=== PATIENT | male | born 1980 | race Caucasian/White ===

== ENCOUNTER 2021-03-15 16:06 | Emergency (ER) | payer OTHER ==
[~2021-03-15] VITALS: Ht 193 cm; Wt 90.7 kg
--- OUTSIDE RECORDS SUMMARY | 2021-03-15 16:20 | XMS REPORT | Clinical Summary ---
Author Author [facility] Organization [facility] Address Unknown Phone Unavailable Care Team Providers Care Kennel Staff Member Name Role Phone Peggy Taylor MD PCP Allergies No known active allergies Medications End Date Status Medication Sig Dispensed Refills Start Date Active abacavir/dolutegravir/hernandez Take 600 mg 0 ivudi (TRIUMEQ ORAL) by mouth every morning. Active oxyCODONE-acetaminophen 0 (PERCOCET) 5-325 mg per 1 tablet Active Problems Not on file Social History Date Tobacco Use Types Packs/Day Years Used Current Every Day Smoker Cigarettes 0.25 10 Smokeless Tobacco: Never Used Comments: half pack a week Comments Alcohol Use Standard Drinks/Week RARELY Yes 0 (1 standard drink = 0.6 o z pure alcohol) Alcohol Habits Answer Date Recorded How often do you have a drink containing alcohol? No t asked How many drinks containing alcohol do you have on No t asked a typical day when you are drinking? How often do you have six or more drinks on one Not asked occasion? Comment: RARELY 06/03/2020 Sex Assigned at Date Recorded Not on file Last Filed Vital Signs Reading Time Taken Comments Vital Sign 127/81 06/08/2020 1:05 AM CDT Blood Pressure 68 06/08/2020 1:05 AM CDT Pulse 36.6 C (97.8 F) 06/08/2020 1:05 AM CDT Temperature 16 06/08/2020 1:05 AM CDT Respiratory Rate 99% 06/08/2020 1:05 AM CDT Oxygen Saturation - - Inhaled Oxygen Concentration 89.8 kg (198 lb) 06/07/2020 12:13 PM CDT Weight 193 cm (6' 4") 06/07/2020 12:13 PM CDT Height 24.1 06/07/2020 12:13 PM CDT Body Mass Index Plan of Treatment Health Maintenance Due Date Last Done Comments Spirometry # 1980 Td/Tdap# 1980 Tobacco Cessation 1980 Counseling # COVID-19 Vaccine (1) 1985 Pneumococcal Vaccine: 1986 Pediatrics (0 to 5 Years) and At-Risk Patients (6 to 64 Years) (1 of 2 - PPSV23) Influenza Vaccine (#1) 2020 02/08/2020, 02/17/2017, 02/28/2016, Additional history exists Implants Device Identifier Shelf Expiration Date Model / Serial / L ot Implanted Type Area Manufactur er Posts,Mouth 01/18/2024 140.947 / / [id number] Implant Ne[employer]ent [place] N/A: Mouth 3.5x16mm Implanted: Qty: 2 on 06/07/2020 by Manolo Langston MD at [facility] 02/19/2024 140.947 / / [id number] Implant Ne[employer]ent [place] [place] N/A: Mouth 3.5x16mm Implanted: Qty: 1 on 06/07/2020 by Manolo Langston MD at [facility] 02/16/2024 140.971 / / [id number] Implant [address] [place] [place] N/A: Mouth 5.0x10mm Implanted: Qty: 1 on 06/07/2020 by Manolo Langston MD at [facility] 02/19/2024 140.968 / / [id number] Im[address] [place] [place] N/A: Mouth 4.3x16mm Implanted: Qty: 1 on 06/07/2020 by Manolo Langston MD at [facility] 02/12/2024 140.967 / / [id number] Implant [address] [place] [place] N/A: Mouth 4.3x13mm Implanted: Qty: 1 on 06/07/2020 by Manolo Langston MD at [facility] 01/23/2024 140.973 / / [id number] [address] [place] [place] N/A: Mouth 5.0x13mm Implanted: Qty: 1 on 06/07/2020 by Manolo Langston MD at [facility] 05/29/2022 [id number] / / [id number] Implant [place] Cancell[place] N/A: Mouth JOSELUIS 5gram/1.2cc SURGICAL Implanted: Qty: 2 on 06/07/2020 by Manolo Langston MD at [facility] 08/31/2023 140.971 / / [id number] Im[address] [place] [place] N/A: Mouth 5.0x10mm Implanted: Qty: 1 on 06/07/2020 by Manolo Langston MD at [facility] 11/09/2023 140.968 / / [id number] Im[address] [place] [place] N/A: Mouth 4.3x16mm Implanted: Qty: 1 on 06/07/2020 by Manolo Langston MD at [facility] 03/31/2024 140.952 / / [id number] Implant Neodent [place] N/A: Mouth 4.3x16mm Implanted: Qty: 1 on 06/07/2020 by Manolo Langston MD at [facility] Results Not on filefrom Last 3 Months Insurance Type Payer Benefit Subscriber ID Effective Phone Address Plan / Dates Group COMMERCIAL-NONCONTRACTED AMBETTER [id number] 2020-P [phone] [address] [place] [address] [place] [id number] 2020-P [phone] [address] MED[address] [place] [address] Advance Directives For more information, please contact: [phone] Patient Ginning Operator Explanation Type Date Recorded Health Care Directive Date Inactivated Comments Code Status Date Activated 06/08/2020 4:12 AM Full Code 06/07/2020 11:59 AM 06/07/2020 11:59 AM Full Code 06/07/2020 11:59 AM Care Teams Start Date End Date Kennel Staff Member Relationship Specialty 02/19/15 Peggy Taylor MD PCP - General Family Medicine
[2021-03-15 16:42] VITALS: BP 147/89
[2021-03-15] MEDS ORDERED: SULF1TAB38 PO (17:04)
[2021-03-15] MEDS ORDERED: MUPI22OI2 TP (17:04)
--- NOTE | 2021-03-15 17:07 | ED Integumentary General ---
General Chief Complaint: Skin/Wound Problems Stated Complaint: INFECTION IN LEFT LEG Nursing Triage Note: PT AMB TO FT 2 W REPORTS OF LEFT UPPER SANTANA AREA OF CONCERN. PT C/O PAIN, THROBBING, REDNESS, AND SWELLING. PT NOTICED IT 4-5 DAYS AGO. ROUND REDDENED AREA NOTED DURING TRIAGE. A&OX4. (HAWA GALARZA) History of Present Illness Date Seen by Provider: Mar 15, 2021 Time Seen by Provider: 16:42 Initial Comments 40-year-old male presents for a lesion to his left lower leg, anterior, proximal santana. He has noticed it for 4 to 5 days, he did have some purulent drainage from it initially. No drainage over the last day. He has been cleaning it with peroxide and he did apply hydrocortisone and Neosporin to it with no improvement. No history of MRSA. He did not have a spider bite that he knows of or other injury to the area. Timing/Duration: week Severity: mild Possible Cause: no cause identified Associated Symptoms: denies symptoms (HAWA GALARZA) Allergies and Home Medications Patient Home Medication List Home Medication List Reviewed: Yes (HAWA GALARZA) Mupirocin (Mupirocin) 22 Gm Oint...g., 1 EACH TP TID Prescribed by: HAWA GALARZA on 03/15/211703 Sulfamethoxazole/Trimethoprim (Bactrim Ds Tablet) 1 Each Tablet, 1 EACH PO BID Prescribed by: HAWA GALARZA on 03/15/211703 Review of Systems Review of Systems Constitutional: no symptoms reported, see HPI Skin: see HPI, change in color (erythema); No rash (HAWA GALARZA) All Other Systems Reviewed Negative Unless Noted: Yes (HAWA GALARZA) Past Dekbzew-Qucrhz-Aobiqj Hx Patient Social History Tobacco Use?: Yes Tobacco type used: Cigarettes Smoking Status: Current Everyday Smoker Use of E-Cig and/or Vaping dev: No Substance use?: Yes Substance type: Methamphetamine, Marijuana Alcohol Use?: No (HAWA GALARZA) Immunizations Up To Date Influenza Vaccine Up-to-Date: Yes; Up-to-Date First/Initial COVID19 Vaccinat: 2020 Second COVID19 Vaccination Van: 2020 COVID19 Vaccine Health Aide: MUSA (HAWA GALARZA) Past Medical History Surgery/Hospitalization HX: HIV HIV/AIDS: Yes (HAWA GALARZA) Family Medical History Reviewed and Corrections made (HAWA GALARZA) Physical Exam Vital Signs Vital Signs - First Documented 03/15/21 16:42 Temp 36.0 Pulse 94 Resp 20 B/P (MAP) 147/89 (108) Pulse Ox 99 O2 Delivery Room Air (FAIZAN WITT MD) Vital Signs Capillary Refill : Less Than 3 Seconds (HAWA GALARZA) General Appearance: WD/WN, no apparent distress Cardiovascular: normal peripheral pulses, regular rate, rhythm Respiratory: chest non-tender, lungs clear, normal breath sounds Skin: normal color, warm/dry Skin Problem Location: lower extremities (left lower leg) Skin Problem Character: erythema, tenderness, warm, other (trace induration, no fluctuance or abscess) Lymphatic: no adenopathy (HAWA GALARZA) Progress/Results/Core Measures Results/Orders Vital Signs/I&O 03/15/21 16:42 Temp 36.0 Pulse 94 Resp 20 B/P (MAP) 147/89 (108) Pulse Ox 99 O2 Delivery Room Air (FAIZAN WITT MD) Blood Pressure Mean: 108 Departure Impression Primary Impression: Skin lesion Disposition: 01 HOME, SELF-CARE Condition: Improved Departure-Patient Inst. Decision time for Depature: 17:00 (HAWA GALARZA) Referrals: NO,LOCAL PHYSICIAN (PCP/Family) Primary Care Physician Patient Instructions: Wound Care (DC), MRSA (DC) Add. Discharge Instructions: Continue to clean the wound with peroxide 3 times daily, apply antibiotic ointment as prescribed. Take antibiotics as prescribed. Follow-up with your primary care provider if symptoms are not improving or worsen. Return to the emergency department for new, urgent healthcare problems. All discharge instructions reviewed with patient and/or family. Voiced understanding. Scripts Mupirocin (Mupirocin) 22 Gm Oint...g. 1 EACH TP TID for 7 Days, #1 TUBE 0 Refills Prov: HAWA GALARZA 03/15/21 Sulfamethoxazole/Trimethoprim (Bactrim Ds Tablet) 1 Each Tablet 1 EACH PO BID, #14 TAB 0 Refills Prov: HAWA GALARZA 03/15/21 ATTENDING PHYSICIAN NOTE: I was physically present as attending physician in the emergency department during the care of this patient, but I was not directly involved in the decision making or delivery of care for this patient. (FAIZAN WITT MD) HAWA GALARZA Mar 15, 2021 17:07 FAIZAN WITT MD Mar 17, 2021 08:27
== END 2021-03-15 17:12 | disposition home or self-care (01) ==
LOC: ER 16:16
DX: L98.9 Disorder of the skin and subcutaneous tissue, unspecified (principal); F17.210 Nicotine dependence, cigarettes, uncomplicated
CPT/HCPCS: 99281

== ENCOUNTER 2022-07-03 11:01 | Inpatient (IN) | payer OTHER ==
[~2022-07-03] VITALS: Ht 190.5 cm; Wt 92.6 kg
[~2022-07-03 11:01] MED LIST: MUPI22OI2 TP; SULF1TAB38 PO
--- NOTE | 2022-07-03 12:36 | PM&R Post Admission Assessment ---
PM&R Date of Visit: July 03, 2022 Time of Visit: 18:00 History of Present Illness CC: Debility following CVA CC: This is a 42yoWM who presents from [place] after this hospital stay: 06/08/22 found unresponsive by friend after he didn't show up to work, last well known time x2 days ago. EMS called, pt found to be hypothermic. Meth, marijuana and fentanyl found on the scene. UDS positive for meth, amphetamines, marijuana and buprenorphrine. Pt intubated due to acute hypercapnic respiratory failure. Pt extubated 06/09/22. 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 TTE EF 60%. Patient is currently reporting left leg pain but had a good therapy assessment when he arrived. Past Dkbtanh-Qrpwwu-Ugvlwy Hx Past Med/Social Hx: Reviewed Nursing Past Med/Soc Hx, Reviewed and Corrections made Patient Social History Marrital Status: single Employed/Student: employed Alcohol Use: Regular Use Smoking Status: Former Smoker Past Medical History Neurological: Stroke (05/2022) HIV/AIDS: Yes PM&R Allergy/Meds/Data Review Allergies Coded Allergies: No Allergy Information Available (Unverified , 07/03/22) Home Medications Scheduled Apixaban (Eliquis), 5 MG PO BID Aspirin (Aspirin), 81 MG PO DAILY, (Reported) Fluoxetine HCl (Prozac), 10 MG PO DAILY Olanzapine (Zyprexa), 5 MG PO DAILY, (Reported) Pantoprazole Sodium (Protonix), 40 MG PO DAILY Temazepam (Restoril), 30 MG PO HS Scheduled PRN Lidocaine (Lidocaine 5% Patch), 1 EACH TP Q12H PRN for Neuropathic pain Discontinued Medications Mupirocin (Mupirocin), 1 EACH TP TID Discontinued Reason: No Longer Taking Sulfamethoxazole/Trimethoprim (Bactrim Ds Tablet), 1 EACH PO BID Discontinued Reason: No Longer Taking Current Medications Current Medications Reviewed Review of Systems Constitutional: see HPI, dizziness, malaise, weakness EENTM: no symptoms reported Respiratory: no symptoms reported Cardiovascular: no symptoms reported Gastrointestinal: no symptoms reported Genitourinary: no symptoms reported Musculoskeletal: back pain, joint pain Skin: no symptoms reported Psychiatric/Neurological: Anxiety, Depressed All Other Systems Reviewed Negative Unless Noted: Yes Physical Exam Physical Exam Vital Signs Capillary Refill : Height, Weight, BMI Height: '" Weight: lbs. oz. kg; 24.00 BMI Method: General Appearance: No Apparent Distress, WD/WN, Thin Eyes: Bilateral Eye Normal Inspection, Bilateral Eye PERRL HEENT: PERRL/EOMI, Normal ENT Inspection, Pharynx Normal Neck: Full Range of Motion, Normal Inspection, Non Tender, Supple, Carotid Bruit Respiratory: Chest Non Tender, Lungs Clear, Normal Breath Sounds, No Accessory Muscle Use, No Respiratory Distress Cardiovascular: Regular Rate, Rhythm, No Edema, No Gallop, No JVD, No Murmur, Normal Peripheral Pulses Gastrointestinal: Normal Bowel Sounds, No Organomegaly, No Pulsatile Mass, Non Tender, Soft Back: Normal Inspection, No CVA Tenderness, No Vertebral Tenderness Extremity: Normal Capillary Refill, Normal Inspection, Normal Range of Motion, Non Tender, No Calf Tenderness, No Pedal Edema Neurologic/Psychiatric: Alert, Oriented x3, interactive art director II-XII Norm as Tested, Abnormal Gait, Aphasia, Depressed Affect, Motor Weakness (left sided leg 2/5 left arm 3/5) Skin: Normal Color, Warm/Dry Lymphatic: No Adenopathy PM&R Medical Assessment & Plan REHAB/MEDICAL ASSESSMENT AND PLAN: REHAB IMPAIRMENT GROUP: CVA ETIOLOGIC DIAGNOSIS: CVA The comorbidities that impact the patients function and/or functional outcome by: cardiac source of CVA, left sided weakness, depression REHAB PLAN: The patient is being admitted to our comprehensive inpatient rehabilitation facility and can tolerate the intensity of service consisting of at least: 180 minutes of therapy a day, 5 out of 7 days a week Rehab treatment will consist of: PT OT will focus on regaining function with use of AD with aggressive therapy in order to regain ambulation and ADL's in order to live independently The patient/family has a good understanding of our discharge process and will benefit from an interdisciplinary inpatient rehabilitation program. The patient has potential to make improvement and is in need of at least two of the following multidisciplinary therapies including but not limited to physical, occupational, speech, and prosthetics and orthotics. Additionally the patient will need services from respiratory, nutritional services, wound care, psychology, etc. (Customize this to each patient). Given the patients complex condition and risk of further medical complications, rehabilitation services cannot be safely or effectively provided at a lower level of care such as a half-way facility. BARRIERS TO DISCHARGE: prior agitation and sitter required ESTIMATED LOS: 10 days DISPOSITION: Home RELEVANT CHANGES SINCE PREADMISSION SCREENING: I have compared the patients medical and functional status at the time of the preadmission screening and there are: no changes PROGNOSIS: Good REHABILITATION GOALS: 1. PT OT will focus on regaining function with use of AD with aggressive therapy in order to regain ambulation and ADL's in order to live independently All the above goals were reviewed with the patient and he/she is in agreement. By signing this document, I acknowledge that I have personally performed a full physical examination on this patient within 24 hours of admission to this inpatient rehabilitation facility and have determined the patient to be able to tolerate the above course of treatment at an intensive level for a reasonable period of time. I will be completing a detailed individualized Plan of Care for this patient by day #4 of the patients stay based upon the Preadmission Screen, the Post-Admission Evaluation, and the therapy evaluations. Admission Dx/Comorbidities: (1) CVA (cerebral vascular accident) ICD Codes: I63.9 - Cerebral infarction, unspecified Assessment/Plan Assessment and Plan Assess & Plan/Chief Complaint Assessment: 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 Agitation prior telesitter at [facility] Left leg pain Plan: Monitor closely OAC Aggressive therapy BREANA PATTON DO July 03, 2022 12:36
[2022-07-03] MEDS ORDERED: LOPERAMIDE 2 MG (IMODIUM) TABLET PO PRN (12:45)
[2022-07-03] MEDS ORDERED: ONDANSETRON 4 MG (ZOFRAN) ORAL DISSOLVE TAB PO PRN (12:45)
[2022-07-03] MEDS ORDERED: DOCUSATE SODIUM 100 MG (COLACE) CAP PO PRN (12:45)
[2022-07-03] MEDS ORDERED: FLEET ENEMA ADULT 1 EA BTL PR PRN (12:45)
[2022-07-03] MEDS ORDERED: diphenhydrAMINE 25 MG TAB (BENADRYL) PO PRN (12:45)
[2022-07-03] MEDS ORDERED: CALCIUM CARBONATE 500 MG (TUMS) TAB.CHEW PO PRN (12:45)
[2022-07-03] MEDS ORDERED: BISACODYL 10 MG SUPP (DULCOLAX) PR PRN (12:45)
[2022-07-03] MEDS ORDERED: LACTULOSE SYRUP 10GM/15ML (ENULOSE) 30ML UDC PO PRN (12:45)
[2022-07-03 13:25] VITALS: BP 118/83
--- OUTSIDE RECORDS SUMMARY | 2022-07-03 13:30 | XMS REPORT | Clinical Summary ---
Author Author [facility] Organization [facility] Address Unknown Phone Unavailable Care Team Providers Care Exceptional Student Education Teacher Name Role Phone Peggy Taylor MD PCP Allergies No known active allergies Medications End Date Status Medication Sig Dispensed Refills Start Date Active abacavir/dolutegravir/hernandez Take 600 mg 0 ivudi (TRIUMEQ ORAL) by mouth every morning. Active oxyCODONE-acetaminophen 0 (PERCOCET) 5-325 mg per 1 tablet Active Problems Not on file Social History Date Tobacco Use Types Packs/Day Years Used Smoking Tobacco: Every Cigarettes 0.3 10 Day Smokeless Tobacco: Never Comments: half pack a week Comments Alcohol Use Standard Drinks/Week RARELY Yes 0 (1 standard drink = 0.6 o z pure alcohol) Date Recorded PHQ-2 Answer 06/07/2020 Part 1 Score: 0 Date Recorded [facility] Transportation Needs Answer Transportation Needs Not on file 06/08/2020 In the next 24 hours or after discharge, are you No in a situation where housing, food, or transportation is a concern, or does th e patient demonstrate the inability to care for s elf that could result in imminent harm Date Recorded [facility] Food Insecurity Answer Food Insecurity Not on file 06/08/2020 In the next 24 hours or after discharge, are you No in a situation where housing, food, or transportation is a concern, or does th e patient demonstrate the inability to care for s elf that could result in imminent harm Date Recorded [facility] Housing Answer Housing Insecurity Not on file 06/08/2020 In the next 24 hours or after discharge, are you No in a situation where housing, food, or transportation is a concern, or does th e patient demonstrate the inability to care for s elf that could result in imminent harm Date Recorded Sex and Gender Information Value Sex Assigned at Not on file Gender Identity Not on file Sexual Orientation Not on file Last Filed Vital Signs [...] Health Maintenance Due Date Last Done Comments Hepatitis C Screen 1980 Td/Tdap# 1980 Tobacco Cessation 1980 Counseling # COVID-19 Vaccine (#1) 1980 Pneumococcal Vaccine: 1986 Pediatrics (0 to 5 Years) and At-Risk Patients (6 to 64 Years) (1 - PCV) Social Determinants of 03/01/2022 Health# Influenza Vaccine (Season 11/29/2022 02/08/2020, Ended) 02/17/2017, 02/28/2016, Additional history exists Medical Devices Device Identifier Shelf Expiration Date Model / Serial / L ot Implanted Type Area Manufactur er Posts,Mouth 02/19/2024 140.947 / / [id number] Implant Neodent [place] [employer] [place] N/A: Mouth 3.5x16mm Implanted: Qty: 1 on 06/07/2020 by Manolo Langston MD at [facility] Results Not on filefrom Last 3 Months Insurance Type Payer Benefit Subscriber ID Effective Phone Address Plan / Dates Group COMMERCIAL-NONCONTRACTED AMBETTER [id number] 2020-P [address] [place] [address] [place] [id number] 2020-P [phone] [address] MED[address] [place] [address] Advance Directives For more information, please contact: [phone] Date Inactivated Comments Code Status Date Activated 06/08/2020 4:12 AM Full Code 06/07/2020 11:59 AM Date Inactivated Comments Code Status Date Activated 06/07/2020 11:59 AM Full Code 06/07/2020 11:59 AM Care Teams Start Date End Date Exceptional Student Education Teacher Relationship Specialty 02/19/15 Peggy Taylor MD PCP - General Family Medicine
--- NOTE | 2022-07-03 14:00 | Occupational Therapy Eval ---
OT Evaluation-General/PLF Medical Diagnosis Admission Date July 03, 2022 at 13:22 Medical Diagnosis: CVA Onset Date: July 24, 2022 Therapy Diagnosis Therapy Diagnosis: Decreased functional use LUE, decreased ADL status Precautions Precautions/Isolations: Fall Prevention, Standard Precautions, Pressure Ulcer Referral Physician: Vane Parks Reason: Evaluation/Treatment Medical History Additional Medical History HIV, meth use Current History 06/08/22 found unresponsive by friend after he didn't show up to work, last well known time x2 days ago. EMS called, pt found to be hypothermic. Meth, marijuana and fentanyl found on the scene. UDS positive for meth, amphetamines, marijuana and buprenorphrine. Pt intubated due to acute hypercapnic respiratory failure. Pt extubated 06/09/22. 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 TTE EF 60%. 07/03/22 pt transferred to ARU for continued skilled therapy and medication management. Social History Home: trailer Current Living Status: Alone Entry Into Home: Stairs Without Railing Steps Into Home: 3 Pt lived alone in a camper trailer, 3 steps to enter without rail. Pt plans on discharging to his SO Wing's house. It has a walk in basement where he is able to stay on one level. It has a walk in shower, no SC. ADL-Prior Level of Function SCALE: Activities may be completed with or without assistive devices. 1-Mghheohrvs-hfnzhra completes the activity by him/herself with no assistance from a helper. 5-Set-up or Clean-up Assistance-helper sets up or cleans up; patient completes activity. [place] assists only prior to or following the activity. 4-Supervision or Touching Assistance-helper provides verbal cues and/or touching/steadying and/or contact guard assistance as patient completes activity. Assistance may be provided throughout the activity or intermittently. 3-Partial/Moderate Assistance-helper does LESS THAN HALF the effort. [place] lifts, holds or supports trunk or limbs, but provides less than half the effort. 2-Substantial/Maximal Assistance-helper does MORE THAN HALF the effort. [place] lifts or holds trunk or limbs and provides more than half the effort. 7-Qrhszuwzt-rlgbys does ALL the effort. Patient does none of the effort to complete the activity. Or, the assistance of 2 or more helpers is required for the patient to complete the activity. If activity was not attempted, code reason: 7-Patient Refused. 9-Not Applicable-not attempted and the patient did not perform the activity before the current illness, exacerbation or injury. 10-Not Attempted due to Environmental Limitations-(lack of equipment, weather restraints, etc.). 88-Not Attempted due to Medical Conditions or Safety Concerns. ADL PLOF Comments Pt reports IND with ADLs and functional mobility at [facility], no AD. Pt's [facility] house has a walk in shower without SC. Pt [facility] [place]. Self Care: Independent Functional Cognition: Independent OT Current Status Subjective Pt agreeable to OT evaluation. Denies pain. Pt frequently requested a break, but agreeable to continued tx with encouragement. Mental Status/Objective Patient Orientation: Person, Place, Time, Situation Current Upper Extremity ROM WFL, BUE shoulder flexion to approx 160 degrees Upper Extremity Coordination Slightly decreased in L hand. Upper Extremity Sensation WFL per pt report, he denies any changes in sensation Upper Extremity Strength RUE grossly 5/5, LUE grossly 4-/5 ADL-Treatment Eating (QC): 5 (Pt able to feed self independently, spilled some liquids requiring clean up assistance.) Oral Hygiene (QC): 4 (SBA seated) Shower/Bathe Self (QC): 1 (2 person assist required at this time for safety.) Upper Body Dressing (QC): 4 (SBA) Lower Body Dressing (QC): 1 (2 person assist required at this time for safety. ) On/Off Footwear (QC): 3 (SBA with slip on shoes seated. Min A with socks.) Toileting Hygiene (QC): 1 (2 person assist required at this time for safety with clothing management in standing. Pt able to use urinal seated with SBA.) Other Treatments OT evaluation complete. Pt provided information about PLOF and home set up and participated in UE screening and BIMs. Pt's lunch arrived, pt able to open all containers and feed self independently. When pt opened fruit container, pt spilled some of the fruit juice, required clean up assistance. Pt able to doff/don slip on shoes with SBA, min A required with socks. OT provided pt with UE theraband HEP, 5/5 exercises and mod-heavy resistance theraband. Copy of HEP left with pt, pt's chart and attached to board in pt's room. Post tx, pt in recliner, call light in reach and all needs met. Education OT Patient Education: Correct positioning, Energy conservation, Modified ADL techniques, Progress toward Goal/Update tx plan, Purpose of tx/functional activities, Rehab process Teaching Recipient: Patient Teaching Methods: Discussion Response to Teaching: Verbalize Understanding BIMS CAM BIMS Expression of Ideas and Wants: Without Difficulty Understanding Verbal Content: Understands Brief Interview/Mental Status: Yes IRF CAROL BIMS: IRF CAROL BIMS Response (Comments) Value Repitition of Three Words Three 3 Recalls Socks Yes, No Cue Required 2 Recalls Blue Yes, No Cue Required 2 Recalls Bed Yes, After Cueing 1 Year Correct 3 Month Accurate Within 5 Days 2 Day Incorrect or No Answer 0 Total [address] Staff Asses[address] Mental [address] No CAM Mental Status Change/Baseline: 0 Inattention: 0 Disorganized thinkin Altered level of consciousness: 0 OT Short Term Goals Short Term Goals Time Frame: July 15, 2022 Upper body dressin Lower body dressin Putting on/taking off footwear: 5 OT Insulation [place] Goals Senior Care Goals Time Frame: July 24, 2022 Eating (QC): 6 Oral Hygiene (QC): 6 Toileting Hygiene (QC): 6 Shower/Bathe Self (QC): 6 Upper Body Dressing (QC): 6 Lower Body Dressing (QC): 6 On/Off Footwear (QC): 6 Additional Goals: 1-Demonstrate ADL Tasks, 2-Verbalize Understanding, 3- ImproveStrength/[place] 1=Demonstrate adherence to instructed precautions during ADL tasks. 2=Patient will verbalize/demonstrate understanding of assistive devices/modifications for ADL. 3=Patient will improve strength/tolerance for activity to enable patient to perform ADL's. OT Education/Plan Problem List/Assessment Assessment: Decreased Activ Tolerance, Decreased Safety Aware, Decreased UE Strength, Impaired Funct Balance, Impaired I ADL's, Impaired Self-Care Skills Discharge Recommendations Plan/Recommendations: Continue POC Treatment Plan/Plan of Care Patient would benefit from OT for education, treatment and training to promote independence in ADL's, mobility, safety and/or upper extremity function for ADL's. Plan of Care: ADL Retraining, Functional Mobility, Group Exercise/Act as Ind, UE Funct Exercise/Act, UE Neuromus Re-Ed/Coord Treatment Duration: July 24, 2022 Frequency: At least 5 of 7 days/Wk (IRF) Estimated Hrs Per Day: 1.5 hours per day Agreement: Yes Rehab Potential: Good Time Start Time: 13:25 Stop Time: 13:55 DATE: July 03, 2022 Total Time Billed (hr/min): 30 Billed Treatment Time 1, EVM (20'), ADL (10') CHRISTA GUERRERO OT July 03, 2022 14:00
--- NOTE | 2022-07-03 15:04 | Physical Therapy Evaluation ---
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 Hx methamphetamin, marijuana, opiods abuse. HIV+ - next dose of medication due 07/21/22 [place] Reviewed History: Yes Social History Home: trailer Current Living Status: Alone Entry Into Home: Stairs Without Railing PT Steps Into Home: 3 S.O. has walk-in/walk-out home available if needed at D/C. BR/BR on same level with walk in shower. Prior Prior Level of Function SCALE: Activities may be completed with or without assistive devices. 4-Ebqpohiger-zxezzbf completes the activity by him/herself with no assistance from a helper. 5-Set-up or Clean-up Assistance-helper sets up or cleans up; patient completes activity. [place] assists only prior to or following the activity. 4-Supervision or Touching Assistance-helper provides verbal cues and/or touching/steadying and/or contact guard assistance as patient completes activity. Assistance may be provided throughout the activity or intermittently. 3-Partial/Moderate Assistance-helper does LESS THAN HALF the effort. [place] lifts, holds or supports trunk or limbs, but provides less than half the effort. 2-Substantial/Maximal Assistance-helper does MORE THAN HALF the effort. [place] lifts or holds trunk or limbs and provides more than half the effort. 1-Lxjcyinxq-earxsc does ALL the effort. Patient does none of the effort to complete the activity. Or, the assistance of 2 or more helpers is required for the patient to complete the activity. If activity was not attempted, code reason: 7-Patient Refused. 9-Not Applicable-not attempted and the patient did not perform the activity before the current illness, exacerbation or injury. 10-Not Attempted due to Environmental Limitations-(lack of equipment, weather restraints, etc.). 88-Not Attempted due to Medical Conditions or Safety Concerns. 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 PT Evaluation-Current Subjective Friendly/talkative. Willing to work with therapy. Does state he is tired frequently and needs to rest. No c/o pain. Some tingling/numbness in (L) LE. Pain Comment: Does state he has tightness in (B) hamstrings (L)>(R), & (R) lateral thigh Section J - Health Conditions 1. Rarely or not at all 2. Occasionally 3. Frequently 4. Almost constantly 8. Unable to answer Pain Effect on Sleep: 1 Pain Interference with Therapy: 1 Pain Interference w/Day-to-Day: 1 Pt/Family Goals To be as (I) as possible. Objective Patient Orientation: Person, Place, Situation Hinged knee brace sent with patient but not wearing when he arrived to floor. Neuromuscular (Tone, Coordination, Reflexes) Impaired motor coordination noted (L) LE. Apraxia with movement. Foot drop (L). Impulsive with mobility/transfers. Sensory Sensation Right Lower Extremit: Intact Sensation Left Lower Extremity: Impaired Transfers Roll Left & Right (QC): 6 Sit to Lying (QC): 6 Lying to Sitting/Side of Bed(Q: 5 Sit to Stand (QC): 3 (min (A) of 1 to FWW with v.c. for hand placement.) Chair/Bid-xw-Jstcg Xfer(QC): 1 (Stand pivots: min-mod (A) of 2 with FWW with cues for walker management, safety with turn and hand placement. Swing pivot min (A)-mod (A) of 1 with cues.) Toilet Transfer (QC): 1 (Mod (A) of 1-2 for safety) Car Transfer (QC): 1 (mod (A) of 2 for safety/LOB) Impulsive with transfers, quickly loses balance during turns. Gait Does the Patient Walk?: Yes Mode of Locomotion: Both Anticipated Mode of Locomotion: Both Walk 10 feet (QC): 1 (mod (A) of 2 without bracing/AFO. (L) foot drop. 3rd person for w/c backup.) Walk 50 ft with 2 Turns(QC): 88 (unable due to fatigue) Walk 150 ft (QC): 88 (unable due to fatigue.) Walking 10ft/uneven surface-QC: 1 (Mod (A) of 2 with assist with walker propulsion - LOB when attempting to advance (L) LE.) Distance: 10' x 2 Gait Assistive Device: FWW Comments/Gait Description (L) foot drop, difficulty advancing (L) LE, difficulty with (L) foot placement with stride widely variable on (L). Wheelchair Training Does the Pt Use a Wheelchair?: Yes Distance: 50' Wheel 50 ft with 2 turns (QC): 3 (With (B) LE's -- SBA-min (A) with ocassional assist to back chair up if (L) foot lagged behind, and prn assist for turns. Patient fatigued at 50') Wheel 150 ft (QC): 88 (too fatigued) Type of Wheelchair: Manual Stairs 1 Step (curb) (QC): 1 (2" curb with FWW mod (A) of 2) 4 Steps (QC): 88 12 Steps (QC): 88 Walking Assistive Device: Walker Balance Sitting Static: Good Sitting Dynamic: Fair Standing Static: Fair Standing Dynamic: Poor Picking up an Object (QC): 3 (Min (A) of 1-2 with FWW and retail stocker with LOB to (L) after object was lifted off floor with retail stocker in (R) UE.) Treatment AFO fitting to (L) shoe to assist with steppage gait (L). Improved stepping strategy noted on (L) with less hip flexion to advance (L) LE. Ambulated 30' with AFO in place min-mod (A) of 2 for safety with w/c back up. Assessment/Needs 41 y/o male s/p CVA on 06/08/21. Has significant motor coordination deficits, balance deficits, decreased endurance, (L) LE weakness -- all of which impair functional mobility. Impulsivity noted with transfers/gait. (L) AFO applied to address foot drop. Patient would benefit from ARU therapy program to maximize strength, activity tolerance and mobility in preparation for D/C to a home setting. Rehab Potential: Fair Equipment Needs FWW, W/C? PT Mcc Goals Fruit Or Nut Farm Worker Goals PT Mcc Goals Time Frame: July 20, 2022 Roll Left to Right (QC): 6 Sit to Lying (QC): 6 Lying-Sitting on Side/Bed(QC): 6 Sit to Stand (QC): 5 Chair/Qew-lq-Rlols Xfer(QC): 5 (with FWW) Toilet/Commode Transfer (QC): 5 (with grab bar or FWW) Car Transfer (QC): 5 (with FWW) Does the Patient Walk: Yes Walk 10 feet (QC): 4 (CGA with FWW and (L) AFO) Walk 10ft-Uneven Surface(QC): 4 (CGA with FWW and (L) AFO) Walk 50ft with 2 Turns (QC): 4 (CGA with FWW and (L) AFO) Walk 150 ft (QC): 4 (CGA with FWW and AFO) Does the Pt use WC or Scooter?: Yes Wheel 50 feet with 2 turns (QC: 6 Type: Manual Wheel 150 feet: 6 Type: Manual 1 Step (curb) (QC): 4 (with FWW) 4 Steps (QC): 3 (min (A) with rails) 12 Steps (QC): 9 Picking up an Object (QC): 5 (with FWW and retail stocker) PT Plan Problem List Problem List: Activity Tolerance, Functional Strength, Safety, Balance, Gait, Transfer, Bed Mobility, ROM Treatment/Plan Treatment Plan: Continue Plan of Care Treatment Plan: Bed Mobility, Education, Functional Activity [place], Functional Strength, Group Therapy, Gait, Safety, Therapeutic Exercise, Transfers Treatment Duration: July 20, 2022 Frequency: At least 5 of 7 days/Wk (IRF) Estimated Hrs Per Day: 1.5 hours per day Patient and/or Family Agrees t: Yes Safety Risks/Education Patient Education: Gait Training, Transfer Techniques, Issued Written HEP, Safety Issues Teaching Recipient: Patient Teaching Methods: Demonstration, Handout, Discussion Response to Teaching: Reinforcement Needed Discharge Recommendations Therapy Discharge Recommendati: 24 Hour Supervision, Intermittent Supervision, Home & Family, Post Acute PT Equpiment Recommendations-D/C: Front Wheeled Walker, Manual Wheelchair Time Time In: 1355 (Co-treatment 1425) Time Out: 1425 (Cotreatment: 1435) DATE: July 03, 2022 Total Billed Treatment Time: 40 Total Billed Treatment EVM 30' - [id number] Co-treatment 10' - GT [id number] -- co-treatment necessary and appropriate due to multiple balance/motor coordination/functional mobility deficits that require 2 skilled therapists to address while ensuring patient safety. Serena Yao PT July 03, 2022 15:04
[2022-07-03] MEDS ORDERED: ASPI-999 PO (15:14)
[2022-07-03] MEDS ORDERED: OLAN5TAB3 PO (15:14)
[2022-07-03] MEDS ORDERED: PANT40TA2 PO (15:16)
[2022-07-03] MEDS ORDERED: APIX5TAB PO (15:16)
[2022-07-03] MEDS ORDERED: FLUO10CA29 PO (15:17)
[2022-07-03] MEDS ORDERED: TEMA30CA6 PO (15:18)
[2022-07-03] MEDS ORDERED: LIDO700A45 TP (15:21)
--- NOTE | 2022-07-03 15:47 | Occupational Ther Daily Note ---
OT Current Status-Daily Note Subjective Pt alert, sitting in recliner. Took over care from OTR/L. OT/PT co-treat ([id number]), skills of 2 clinicians required to decrease fall risk, increase safe mobility and ability to complete functional tasks. OT focusing on B UE strengthening, assisting with safe ambulation/transfers while PT focusing on transfers, ambulation and w/c mobility. Mental Status/Objective Patient Orientation: Person, Place, Time, Situation ADL-Treatment Therapy Code Descriptions/Definitions Functional [place] Measure: 0=Not Assessed/NA 4=Minimal Assistance 1=Total Assistance 5=Supervision or Setup 2=Maximal Assistance 6=Modified [place] 3=Moderate Assistance 7=Complete IndependenceSCALE: Activities may be completed with or without assistive devices. 7-Mjwyreydzi-mrqypab completes the activity by him/herself with no assistance from a helper. 5-Set-up or Clean-up Assistance-helper sets up or cleans up; patient completes activity. [place] assists only prior to or following the activity. 4-Supervision or Touching Assistance-helper provides verbal cues and/or touching/steadying and/or contact guard assistance as patient completes activity. Assistance may be provided throughout the activity or intermittently. 3-Partial/Moderate Assistance-helper does LESS THAN HALF the effort. [place] lifts, holds or supports trunk or limbs, but provides less than half the effort. 2-Substantial/Maximal Assistance-helper does MORE THAN HALF the effort. [place] lifts or holds trunk or limbs and provides more than half the effort. 2-Ssntxjdmo-jkjtqm does ALL the effort. Patient does none of the effort to complete the activity. Or, the assistance of 2 or more helpers is required for the patient to complete the activity. If activity was not attempted, code reason: 7-Patient Refused. 9-Not Applicable-not attempted and the patient did not perform the activity before the current illness, exacerbation or injury. 10-Not Attempted due to Environmental Limitations-(lack of equipment, weather restraints, etc.). 88-Not Attempted due to Medical Conditions or Safety Concerns. Other Treatment Pt demonstrates good strength and WNL AROM during all functional tasks. Pt has decreased B UE coordination and ataxic movement during full body tasks. Pt demonstrates good dynamic sitting balance during reaching/placing tasks at varying heights. Min A for transfers with mod verbal cues for safe and correct transfer techniques. See PT notes for ambulation and transfers. After session, pt lying in bed with call light/phone in reach. All needs met in room. Education OT Patient Education: Purpose of tx/functional activities, Rehab process, Safety issues, Transfer techniques, W/C management Teaching Recipient: Patient Teaching Methods: Demonstration, Discussion Response to Teaching: Verbalize Understanding, Return Demonstration, Reinforcement Needed OT Short Term Goals Short Term Goals Time Frame: July 15, 2022 Upper body dressin Lower body dressin Putting on/taking off footwear: 5 OT Half-Way Goals Assistant Director Of Plant Operations Goals Time Frame: July 24, 2022 Acute change in mental status: 0 Inattention: 0 Disorganized thinkin Altered level of consciousness: 0 Eating (QC): 6 Oral Hygiene (QC): 6 Toileting Hygiene (QC): 6 Shower/Bathe Self (QC): 6 Upper Body Dressing (QC): 6 Lower Body Dressing (QC): 6 On/Off Footwear (QC): 6 Additional Goals: 1-Demonstrate ADL Tasks, 2-Verbalize Understanding, 3- ImproveStrength/[place] 1=Demonstrate adherence to instructed precautions during ADL tasks. 2=Patient will verbalize/demonstrate understanding of assistive devices/modifications for ADL. 3=Patient will improve strength/tolerance for activity to enable patient to perform ADL's. OT Education/Plan Problem List/Assessment Assessment: Decreased Activ Tolerance, Decreased Safety Aware, Impaired Cogni tion, Impaired Coordination, Impaired Funct Balance, Impaired Self-Care Skills Discharge Recommendations Plan/Recommendations: Continue POC Treatment Plan/Plan of Care Patient would benefit from OT for education, treatment and training to promote independence in ADL's, mobility, safety and/or upper extremity function for ADL's. Plan of Care: ADL Retraining, Functional Mobility, Group Exercise/Act as Ind, UE Funct Exercise/Act, UE Neuromus Re-Ed/Coord Treatment Duration: July 24, 2022 Frequency: At least 5 of 7 days/Wk (IRF) Estimated Hrs Per Day: 1.5 hours per day Agreement: Yes Rehab Potential: Fair Time Start Time: 14:25 Stop Time: 15:35 DATE: July 03, 2022 Total Time Billed (hr/min): 70 Billed Treatment Time 1 visit-NM 5 (70 min) co-treat with RPT [id number], DIGITAL X RAY SERVICE ENGINEER [phone] EDWIN HAUSER July 03, 2022 15:46
--- NOTE | 2022-07-03 15:48 | Physical Therapy Daily Note ---
PT Daily Note-Current Subjective Pt in therapy commons area upon arrival. pt reports pain in hip and hamstring when preforming bed mobility this day. pt educated in and was able to preform supine stretching this day. Pain Section J - Health Conditions 1. Rarely or not at all 2. Occasionally 3. Frequently 4. Almost constantly 8. Unable to answer Pain Effect on Sleep: 1 Pain Interference with Therapy: 1 Pain Interference w/Day-to-Day: 1 Mental Status Patient Orientation: Person, Place, Time, Situation Transfers SCALE: Activities may be completed with or without assistive devices. 4-Ohzyqxrvld-xectvnt completes the activity by him/herself with no assistance from a helper. 5-Set-up or Clean-up Assistance-helper sets up or cleans up; patient completes activity. [place] assists only prior to or following the activity. 4-Supervision or Touching Assistance-helper provides verbal cues and/or touching/steadying and/or contact guard assistance as patient completes activity. Assistance may be provided throughout the activity or intermittently. 3-Partial/Moderate Assistance-helper does LESS THAN HALF the effort. [place] lifts, holds or supports trunk or limbs, but provides less than half the effort. 2-Substantial/Maximal Assistance-helper does MORE THAN HALF the effort. [place] lifts or holds trunk or limbs and provides more than half the effort. 9-Vldxfvtar-vgakza does ALL the effort. Patient does none of the effort to complete the activity. Or, the assistance of 2 or more helpers is required for the patient to complete the activity. If activity was not attempted, code reason: 7-Patient Refused. 9-Not Applicable-not attempted and the patient did not perform the activity before the current illness, exacerbation or injury. 10-Not Attempted due to Environmental Limitations-(lack of equipment, weather restraints, etc.). 88-Not Attempted due to Medical Conditions or Safety Concerns. Weight Bearing Full Weight Bearing Weight Bearing/Tolerated Foot drop (L) Treatments Pt is able to ambulate in // bars with MOD A and VC for correct mitul placement when ambulating. pt is able to preform bed mobility with independence getting on and off the therapy mat. pt educated and preformed sitting and laying hip flexor stretches. pt executed sitting dynamic balance with SBA and VC to follow directions given to him. pt can preform WC mobility with VC for foot drag and obstacle deflection this day. 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 Goals Mcfp Goals PT Mcfp Goals Time Frame: July 20, 2022 Roll Left & Right (QC): 6 Sit to Lying (QC): 6 Lying-Sitting on Side/Bed(QC): 6 Sit to Stand (QC): 5 Chair/Tvc-ul-Qofwn Xfer(QC): 5 (with FWW) Toilet Transfer (QC): 5 (with grab bar or FWW) Car Transfer (QC): 5 (with FWW) Does the Patient Walk: Yes Walk 10 feet (QC): 4 (CGA with FWW and (L) AFO) Walk 50ft with 2 Turns (QC): 4 (CGA with FWW and (L) AFO) Walk 150 ft (QC): 4 (CGA with FWW and AFO) Walking 10ft on Uneven Surface: 4 (CGA with FWW and (L) AFO) 1 Step (curb) (QC): 4 (with FWW) 4 Steps (QC): 3 (min (A) with rails) 12 Steps (QC): 9 Picking up an Object (QC): 5 (with FWW and professor of poultry science) Does the Pt use WC or Scooter?: Yes Wheel 50 feet with 2 turns (QC: 6 Type: Manual Wheel 150 feet: 6 Type: Manual PT Plan Treatment/Plan Treatment Plan: Continue Plan of Care Treatment Plan: Bed Mobility, Education, Functional Activity [place], Functional Strength, Group Therapy, Gait, Safety, Therapeutic Exercise, Transfers Treatment Duration: July 20, 2022 Frequency: At least 5 of 7 days/Wk (IRF) Estimated Hrs Per Day: 1.5 hours per day Patient and/or Family Agrees t: Yes Time Time In: 143 Time Out: 1524 DATE: July 03, 2022 Total Billed Treatment Time: 50 Total Billed Treatment 1 GT x 2 FA EX Patricia Story CAN FILLER July 03, 2022 15:48
[2022-07-03 19:18] VITALS: BP 136/92
[2022-07-03] MEDS: polyethylene glycoL POWDER 17 GM (MIRALAX) PACK PO SCH (19:32)
[2022-07-03] MEDS: SENNA W/DOCUSATE (SENOKOT S) TABLET PO SCH (20:48)
[2022-07-03] MEDS: ACETAMINOPHEN 325 MG TABLET PO PRN (20:48)
[2022-07-03] MEDS: APIXABAN 5 MG (ELIQUIS) TABLET PO SCH (20:48)
[2022-07-03] MEDS: TEMAZEPAM 15 MG (RESTORIL) CAP PO SCH (20:48)
[2022-07-03] MEDS: DOCUSATE SODIUM 100 MG (COLACE) CAP PO SCH (20:48)
[2022-07-03] MEDS: DICLOFENAC 1% GEL 100 GM (VOLTAREN) TUBE TOP SCH (20:51)
[2022-07-04 05:48] LABS: BASOPHILS # (AUTO) 0.1 10^3/uL (0.0-0.1); BASOPHILS % (AUTO) 1 % (0-10); EOSINOPHILS # (AUTO) 0.2 10^3/uL (0.0-0.3); EOSINOPHILS % (AUTO) 2 % (0-10); HEMATOCRIT 36 % (40-54); LYMPHOCYTES # (AUTO) 1.8 10^3/uL (1.0-4.0); LYMPHOCYTES % (AUTO) 24 % (12-44); MEAN CORPUSCULAR HEMOGLOBIN 31 pg (25-34); MEAN CORPUSCULAR HGB CONC 33 g/dL (32-36); MEAN CORPUSCULAR VOLUME 95 fL (80-99); MONOCYTES # (AUTO) 0.6 10^3/uL (0.0-1.0); MONOCYTES % (AUTO) 8 % (0-12); NEUTROPHILS # (AUTO) 4.6 10^3/uL (1.8-7.8); NEUTROPHILS % (AUTO) 62 % (42-75); PLATELET COUNT 275 10^3/uL (130-400); WHITE BLOOD COUNT 7.4 10^3/uL (4.3-11.0)
[2022-07-04 05:58] LABS: ALBUMIN 3.6 GM/DL (3.2-4.5); POTASSIUM 4.6 MMOL/L (3.6-5.0)
[2022-07-04 06:00] LABS: CALCIUM 9.1 MG/DL (8.5-10.1)
[2022-07-04 06:01] LABS: TOTAL PROTEIN 6.8 GM/DL (6.4-8.2)
[2022-07-04 06:03] LABS: BILIRUBIN,TOTAL 0.2 MG/DL (0.1-1.0)
[2022-07-04 06:04] LABS: CREATININE SERUM 0.92 MG/DL (0.60-1.30)
--- NOTE | 2022-07-04 06:45 | PM&R Progress Note ---
Subjective HPI/CC On Admission Date Seen by Provider: July 04, 2022 Time Seen by Provider: 11:30 Subjective/Events-last exam 07/04/2022: Doing well LFT's elevated unsure of chronicity Patient improved overall No falls BM regimen maintained Review of Systems General: Fatigue, Malaise Objective Exam Vital Signs Vital Signs Date Time Temp Pulse Resp B/P (MAP) Pulse Ox O2 Delivery O2 Flow Rate FiO2 07/04/22 07:30 36.6 89 20 108/71 (83) 97 Room Air Capillary Refill : General Appearance: No Apparent Distress, WD/WN, Thin HEENT: PERRL/EOMI, Normal ENT Inspection, Pharynx Normal Neck: Full Range of Motion, Normal Inspection, Non Tender, Supple, Carotid Bruit Respiratory: Chest Non Tender, Lungs Clear, Normal Breath Sounds, No Accessory Muscle Use, No Respiratory Distress Cardiovascular: Regular Rate, Rhythm, No Edema, No Gallop, No JVD, No Murmur, Normal Peripheral Pulses Gastrointestinal: Normal Bowel Sounds, No Organomegaly, No Pulsatile Mass, Non Tender, Soft Back: Normal Inspection, No CVA Tenderness, No Vertebral Tenderness Extremity: Normal Capillary Refill, Normal Inspection, Normal Range of Motion, Non Tender, No Calf Tenderness, No Pedal Edema Neurologic/Psychiatric: Alert, Oriented x3, manager cath lab II-XII Norm as Tested, Abnormal Gait, Aphasia, Depressed Affect, Motor Weakness (left sided leg 2/5 left arm 3/5) Skin: Normal Color, Warm/Dry Lymphatic: No Adenopathy Results/Procedures Lab Laboratory Tests 07/04/22 05:34 Patient resulted labs reviewed. FIM Transfers Therapy Code Descriptions/Definitions Functional [place] Measure: 0=Not Assessed/NA 4=Minimal Assistance 1=Total Assistance 5=Supervision or Setup 2=Maximal Assistance 6=Modified [place] 3=Moderate Assistance 7=Complete IndependenceSCALE: Activities may be completed with or without assistive devices. 8-Podjayhapk-iqyijoj completes the activity by him/herself with no assistance from a helper. 5-Set-up or Clean-up Assistance-helper sets up or cleans up; patient completes activity. [place] assists only prior to or following the activity. 4-Supervision or Touching Assistance-helper provides verbal cues and/or touching/steadying and/or contact guard assistance as patient completes activity. Assistance may be provided throughout the activity or intermittently. 3-Partial/Moderate Assistance-helper does LESS THAN HALF the effort. [place] lifts, holds or supports trunk or limbs, but provides less than half the effort. 2-Substantial/Maximal Assistance-helper does MORE THAN HALF the effort. [place] lifts or holds trunk or limbs and provides more than half the effort. 4-Pmliabujz-igpttz does ALL the effort. Patient does none of the effort to complete the activity. Or, the assistance of 2 or more helpers is required for the patient to complete the activity. If activity was not attempted, code reason: 7-Patient Refused. 9-Not Applicable-not attempted and the patient did not perform the activity before the current illness, exacerbation or injury. 10-Not Attempted due to Environmental Limitations-(lack of equipment, weather restraints, etc.). 88-Not Attempted due to Medical Conditions or Safety Concerns. Roll Left to Right (QC): 6 Sit to Lying (QC): 6 Sit to Stand (QC): 3 (min (A) of 1 to FWW with v.c. for hand placement.) Chair/Fup-qa-Olwjg Xfer(QC): 1 (Stand pivots: min-mod (A) of 2 with FWW with cues for walker management, safety with turn and hand placement. Swing pivot min (A)-mod (A) of 1 with cues.) Car Transfer (QC): 1 (mod (A) of 2 for safety/LOB) Gait Training Does the Patient Walk?: Yes Walk 10 feet (QC): 1 (mod (A) of 2 without bracing/AFO. (L) foot drop. 3rd person for w/c backup.) Walk 50 ft with 2 Turns(QC): 88 (unable due to fatigue) Walk 150 ft (QC): 88 (unable due to fatigue.) Walking 10ft/uneven surface-QC: 1 (Mod (A) of 2 with assist with walker propulsion - LOB when attempting to advance (L) LE.) Gait Assistive Device: FWW Wheelchair Training Does the Pt Use a Wheelchair?: Yes Distance: 50' Wheel 50 ft with 2 turns (QC): 3 (With (B) LE's -- SBA-min (A) with ocassional assist to back chair up if (L) foot lagged behind, and prn assist for turns. Patient fatigued at 50') Wheel 150 ft (QC): 88 (too fatigued) Type of Wheelchair: Manual Stair Training 1 Step (curb) (QC): 1 (2" curb with FWW mod (A) of 2) 4 Steps (QC): 88 12 Steps (QC): 88 Balance Picking up an Object (QC): 3 (Min (A) of 1-2 with FWW and assessment analyst with LOB to (L) after object was lifted off floor with assessment analyst in (R) UE.) ADL-Treatment Eating (QC): 5 (Pt able to feed self independently, spilled some liquids requiring clean up assistance.) Oral Hygiene (QC): 4 (SBA seated) Shower/Bathe Self (QC): 1 (2 person assist required at this time for safety.) Upper Body Dressing (QC): 4 (SBA) Lower Body Dressing (QC): 1 (2 person assist required at this time for safety. ) On/Off Footwear (QC): 3 (SBA with slip on shoes seated. Min A with socks.) Toileting Hygiene (QC): 1 (2 person assist required at this time for safety with clothing management in standing. 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
--- NOTE | 2022-07-04 06:45 | Individualized Plan of Care ---
Individualized Plan of Care Rehab Nursing IPOC Order Admission Date July 03, 2022 at 13:22 Current Orders Orders Admission Order(Inpt,Obs,Sdc) (07/03/22 12:34) Vital Signs: Per Unit Policy ( 08,16,00 (07/03/22 12:34) Michael Malagon , (07/03/22 12:34) Sequential Compression Device (07/03/22 12:34) Long Lines Operator-Inpt Rehab Con (07/03/22 12:34) Rehab Nursing Orders-Ipoc (07/03/22 12:34) Physical Therapy Rehab Orders (07/03/22 12:34) Occupational Therapy Rehab Ord (07/03/22 12:34) Speech Therapy Rehab Orders (07/03/22:34) Cbc With Automated Diff (07/04/22 06:00) Comprehensive Metabolic Panel (07/04/22 06:00) Precautions (Aru) (07/03/22 12:34) Weekly Weight WEEK (07/03/22 12:34) Rehab-Intensity Of Therapy (07/03/22 12:34) Initiate Admission Nursing Pro .admission (07/03/22 12:34) Alprazolam Tablet (Xanax Tablet) (07/03/22 12:45) Calcium Carbonate Chew Tablet (Antacid C (07/03/22 12:45) Diphenhydramine Tablet (Benadryl Tablet) (07/03/22 12:45) Docusate Sodium Capsule (Colace Capsule) (07/03/22 21:00) Docusate Sodium Capsule (Colace Capsule) (07/03/22 12:45) Bisacodyl Suppository (Dulcolax Supposit (07/03/22 12:45) Lactulose Oral Solution (Enulose Oral So (07/03/22 12:45) Na Phos/Na Biphos Enema (Fleet Enema Luke (07/03/22 12:45) Guaifenesin/Codeine Syrup (Robitussin Ac (07/03/22 12:45) Loperamide Tablet (Imodium Tablet) (07/03/22 12:45) Melatonin Tablet (Melatonin Tablet) (07/03/22 12:45) Polyethylene Glycol Powder Pkt (Miralax (07/03/22 21:00) Ondansetron Oral Dissolve Tab (Zofran (07/03/22 12:45) Senna S Tablet (Senokot S Tablet) (07/03/22 21:00) Acetaminophen Tablet/Caplet (Tylenol T (07/03/22 12:45) Initiate Admission Nursing Pro .admission (07/03/22 12:34) Admission Arrival Bed Request (07/03/22 13:22) General/Regular (07/03/22 Lunch) Apixaban Tablet (Eliquis Tablet) (07/03/22 21:00) Aspirin Chewable Tablet (Baby Aspirin Ch (07/04/22 09:00) Fluoxetine Capsule/Tablet (Prozac Capsul (07/04/22 09:00) Lidocaine 4% Patch (Salonpas 4% Patch) (07/03/22 15:30) Pantoprazole Tablet (Protonix Tablet) (07/04/22 09:00) Olanzapine Tablet (Zyprexa Tablet) (07/04/22 09:00) Temazepam Capsule (Restoril Capsule) (07/03/22 21:00) Code/Resuscitation (07/03/22 15:56) Diclofenac 1% Gel (Voltaren 1% Gel) (07/03/22 21:00) Patient Visit (07/04/22 ) Pt Eval Moderate Complexity (07/04/22 ) Gait Training, Ea 15 Min (07/04/22 ) Patient Visit (07/03/22 ) Pt Eval Moderate Complexity (07/03/22 ) Gait Training, Ea 15 Min (07/03/22 ) Patient Visit (07/03/22 ) Gait Training, Ea 15 Min (07/03/22 ) Functional Activities, Ea 15 (07/03/22 ) Exercise Therap, Ea 15 Min (07/03/22 ) Hepatitis Panel Acute (07/04/22 12:29) Gamma Glutamyl Transferase Ggt (07/04/22 12:29) Rehab Nursing Orders: Ongoing Assess. of Cognitive Status, Ongoing Assess. of Function Status, Bladder Management, Bladder Scan, Bladder Training, Bowel Management, Bowel Training, Disease Management & Educaiton, DVT Prophylaxis, Fall Prevention, Fluid/Electrolyte/Nutrition Mgmt, Infection Prevention, Medication Management & Education, Management of Risks & Complications, Management of Skin Intergrity, Nutrition Management, Pain Management, Patient/Family Support, Safety Management Intensity of Therapy to be met Patient to be seen: Min.3h per day/5 of 7d PT IPOC Problem List: Activity Tolerance, Functional Strength, Safety, Balance, Gait, Transfer, Bed Mobility, ROM Treatment Plan: Continue Plan of Care Bed Mobility, Education, Functional Activity [place], Functional Strength, Group Therapy, Gait, Safety, Therapeutic Exercise, Transfers Treatment Duration: July 20, 2022 Frequency: At least 5 of 7 days/Wk (IRF) Estimated Hrs Per Day: 1.5 hours per day OT IPOC Problems: Decreased Activ Tolerance, Decreased Safety Aware, Impaired Cognition, Impaired Coordination, Impaired Funct Balance, Impaired Self-Care Skills OT Treatment, Training and Edu: Yes Plan of Care: ADL Retraining, Functional Mobility, Group Exercise/Act as Ind, UE Funct Exercise/Act, UE Neuromus Re-Ed/Coord Treatment Duration: July 24, 2022 Frequency: At least 5 of 7 days/Wk (IRF) Estimated Hrs Per Day: 1.[address] IPOC Speech Therapy Treatment Plan: Discontinue ST Treatment Duration: July 03, 2022 Frequency: Modified Program (IRF) Estimated Hrs Per Day: Other Long Lines Operator/Case Mgmt Long Lines Operator/Case Managemen: Discharge Planning Dietitian/Risk Control Consultant Dietitian/Risk Control Consultant to monitor nutritional status and make changes and/or recommendations as needed and work with speech pathology on dietary upgrades as the occur. Physician IPOC Medical Issues being managed closely and that require the 24 hour availability of a physician: Recent catastrophic CVA with delirium and complicated and slow recovery will require close monitoring for decompensation or extension of CVA Medical Issues: Bowel/Bladder Function, DVT Prophylaxis, Falls Precautions, Fluid/Electrolyte/Nutrition Balance, Infection Protection, Pain Management Brief Synthesis of Preadmission Screen, Post-Admission Evaluation, and Therapy Evaluations: PT OT will focus on regaining function with use of AD in order to regain ambulatory stamina and increase in independent ADL's Medical Prognosis: Good Anticipated Length of Stay: 10 days BREANA PATTON DO July 04, 2022 06:45
[2022-07-04 07:30] VITALS: BP 108/71
[2022-07-04] MEDS: FLUoxetine HCL 10 MG (PROzac) CAPSULE/TABLET PO SCH (07:57)
[2022-07-04] MEDS: DOCUSATE SODIUM 100 MG (COLACE) CAP PO SCH ×2 (07:58→20:08)
[2022-07-04] MEDS: APIXABAN 5 MG (ELIQUIS) TABLET PO SCH ×2 (07:58→20:10)
[2022-07-04] MEDS: PANTOPRAZOLE 40 MG (PROTONIX) TAB PO SCH (07:59)
[2022-07-04] MEDS: SENNA W/DOCUSATE (SENOKOT S) TABLET PO SCH ×2 (07:59→20:09)
[2022-07-04] MEDS: ASPIRIN 81 MG CHEW (CHILDREN'S ASA) PO SCH (07:59)
[2022-07-04] MEDS: OLANZapine 2.5 MG (ZyPREXA) TAB PO SCH (07:59)
[2022-07-04] MEDS: DICLOFENAC 1% GEL 100 GM (VOLTAREN) TUBE TOP SCH ×4 (08:00→20:10)
[2022-07-04] MEDS: ACETAMINOPHEN 325 MG TABLET PO PRN ×2 (08:27→15:04)
[2022-07-04] MEDS: polyethylene glycoL POWDER 17 GM (MIRALAX) PACK PO SCH ×2 (12:36→20:09)
[2022-07-04] MEDS: ALPRAZolam 0.25 MG (XANAX) TAB PO PRN (15:03)
[2022-07-04] MEDS ORDERED: LORazepam INJ 2 MG/ML (ATIVAN) VIAL ONE (18:40)
[2022-07-04] MEDS ORDERED: WATER (STERILE) FOR INJ 10 ML BTL INJ SCH (18:45)
[2022-07-04] MEDS ORDERED: LORazepam INJ 2 MG/ML (ATIVAN) VIAL IM PRN ×2 (18:45→20:45)
[2022-07-04] MEDS ORDERED: ZIPRASIDONE 20 MG INJ (GEODON) VIAL IM PRN (18:45)
[2022-07-04 19:43] VITALS: BP 135/78
[2022-07-04] MEDS: TEMAZEPAM 15 MG (RESTORIL) CAP PO SCH (20:10)
--- NOTE | 2022-07-05 07:04 | PM&R Progress Note ---
Subjective HPI/CC On Admission Date Seen by Provider: July 05, 2022 Time Seen by Provider: 12:00 Subjective/Events-last exam 07/05/2022: Patient was agitated last evening requiring IM Ativan Improved overall Impulsive and a major fall risk 07/04/2022: Doing well LFT's elevated unsure of chronicity Patient improved overall No falls BM regimen maintained Review of Systems General: Fatigue, Malaise Objective Exam Vital Signs Vital Signs Date Time Temp Pulse Resp B/P (MAP) Pulse Ox O2 Delivery O2 Flow Rate FiO2 07/05/22 09:40 36.5 101 20 131/90 (104) 99 Room Air Capillary Refill : General Appearance: No Apparent Distress, WD/WN, Thin HEENT: PERRL/EOMI, Normal ENT Inspection, Pharynx Normal Neck: Full Range of Motion, Normal Inspection, Non Tender, Supple, Carotid Brui t Respiratory: Chest Non Tender, Lungs Clear, Normal Breath Sounds, No Accessory Muscle Use, No Respiratory Distress Cardiovascular: Regular Rate, Rhythm, No Edema, No Gallop, No JVD, No Murmur, Normal Peripheral Pulses Gastrointestinal: Normal Bowel Sounds, No Organomegaly, No Pulsatile Mass, Non Tender, Soft Back: Normal Inspection, No CVA Tenderness, No Vertebral Tenderness Extremity: Normal Capillary Refill, Normal Inspection, Normal Range of Motion, Non Tender, No Calf Tenderness, No Pedal Edema Neurologic/Psychiatric: Alert, Oriented x3, 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 FIM Transfers Therapy Code Descriptions/Definitions Functional [place] Measure: 0=Not Assessed/NA 4=Minimal Assistance 1=Total Assistance 5=Supervision or Setup 2=Maximal Assistance 6=Modified [place] 3=Moderate Assistance 7=Complete IndependenceSCALE: Activities may be completed with or without assistive devices. 8-Mwimuklzqk-gqvkjmb completes the activity by him/herself with no assistance from a helper. 5-Set-up or Clean-up Assistance-helper sets up or cleans up; patient completes activity. [place] assists only prior to or following the activity. 4-Supervision or Touching Assistance-helper provides verbal cues and/or touching/steadying and/or contact guard assistance as patient completes activity. Assistance may be provided throughout the activity or intermittently. 3-Partial/Moderate Assistance-helper does LESS THAN HALF the effort. [place] lifts, holds or supports trunk or limbs, but provides less than half the effort. 2-Substantial/Maximal Assistance-helper does MORE THAN HALF the effort. [place] lifts or holds trunk or limbs and provides more than half the effort. 2-Bokgioeyx-hcofpw does ALL the effort. Patient does none of the effort to complete the activity. Or, the assistance of 2 or more helpers is required for the patient to complete the activity. If activity was not attempted, code reason: 7-Patient Refused. 9-Not Applicable-not attempted and the patient did not perform the activity befo re the current illness, exacerbation or injury. 10-Not Attempted due to Environmental Limitations-(lack of equipment, weather re straints, etc.). 88-Not Attempted due to Medical Conditions or Safety Concerns. Roll Left to Right (QC): 6 Sit to Lying (QC): 6 Sit to Stand (QC): 3 (min (A) of 1 to FWW with v.c. for hand placement.) Chair/Pds-yz-Kahyc Xfer(QC): 1 (Stand pivots: min-mod (A) of 2 with FWW with cues for walker management, safety with turn and hand placement. Swing pivot min (A)-mod (A) of 1 with cues.) Car Transfer (QC): 1 (mod (A) of 2 for safety/LOB) Gait Training Does the Patient Walk?: Yes Walk 10 feet (QC): 1 (mod (A) of 2 without bracing/AFO. (L) foot drop. 3rd person for w/c backup.) Walk 50 ft with 2 Turns(QC): 88 (unable due to fatigue) Walk 150 ft (QC): 88 (unable due to fatigue.) Walking 10ft/uneven surface-QC: 1 (Mod (A) of 2 with assist with walker propulsion - LOB when attempting to advance (L) LE.) Gait Assistive Device: FWW Wheelchair Training Does the Pt Use a Wheelchair?: Yes Distance: 50' Wheel 50 ft with 2 turns (QC): 3 (With (B) LE's -- SBA-min (A) with ocassional assist to back chair up if (L) foot lagged behind, and prn assist for turns. Patient fatigued at 50') Wheel 150 ft (QC): 88 (too fatigued) Type of Wheelchair: Manual Stair Training 1 Step (curb) (QC): 1 (2" curb with FWW mod (A) of 2) 4 Steps (QC): 88 12 Steps (QC): 88 Balance Picking up an Object (QC): 3 (Min (A) of 1-2 with FWW and assistant designer with LOB to (L) after object was lifted off floor with assistant designer in (R) UE.) ADL-Treatment Eating (QC): 5 (Pt able to feed self independently, spilled some liquids requiring clean up assistance.) Oral Hygiene (QC): 4 (SBA seated) Shower/Bathe Self (QC): 1 (2 person assist required at this time for safety.) Upper Body Dressing (QC): 4 (SBA) Lower Body Dressing (QC): 1 (2 person assist required at this time for safety. ) On/Off Footwear (QC): 3 (SBA with slip on shoes seated. Min A with socks.) Toileting Hygiene (QC): 1 (2 person assist required at this time for safety w ith clothing management in standing. 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
[2022-07-05 09:40] VITALS: BP 131/90
[2022-07-05] MEDS: PANTOPRAZOLE 40 MG (PROTONIX) TAB PO SCH (09:51)
[2022-07-05] MEDS: OLANZapine 2.5 MG (ZyPREXA) TAB PO SCH (09:51)
[2022-07-05] MEDS: ASPIRIN 81 MG CHEW (CHILDREN'S ASA) PO SCH (09:51)
[2022-07-05] MEDS: APIXABAN 5 MG (ELIQUIS) TABLET PO SCH ×2 (09:51→20:15)
[2022-07-05] MEDS: FLUoxetine HCL 10 MG (PROzac) CAPSULE/TABLET PO SCH (09:51)
[2022-07-05] MEDS: DICLOFENAC 1% GEL 100 GM (VOLTAREN) TUBE TOP SCH ×4 (09:52→19:32)
[2022-07-05] MEDS: SENNA W/DOCUSATE (SENOKOT S) TABLET PO SCH ×2 (09:53→19:31)
[2022-07-05] MEDS: polyethylene glycoL POWDER 17 GM (MIRALAX) PACK PO SCH ×2 (09:53→19:31)
[2022-07-05] MEDS: DOCUSATE SODIUM 100 MG (COLACE) CAP PO SCH ×2 (09:53→19:31)
[2022-07-05] MEDS: ALPRAZolam 0.25 MG (XANAX) TAB PO PRN (16:46)
[2022-07-05 20:10] VITALS: BP 122/57
[2022-07-05] MEDS: TEMAZEPAM 15 MG (RESTORIL) CAP PO SCH (20:15)
--- NOTE | 2022-07-06 06:50 | PM&R Progress Note ---
Subjective HPI/CC On Admission Date Seen by Provider: July 06, 2022 Time Seen by Provider: 08:30 Subjective/Events-last exam 07/06/2022: No major issues Remains impulsive Evening time he becomes agitated and requires antipsychotics and ativan Labs reviewed and liver improved 07/05/2022: Patient was agitated last evening requiring IM Ativan Improved overall Impulsive and a major fall risk 07/04/2022: Doing well LFT's elevated unsure of chronicity Patient improved overall No falls BM regimen maintained Review of Systems General: Fatigue, Malaise Objective Exam Vital Signs Vital Signs Date Time Temp Pulse Resp B/P (MAP) Pulse Ox O2 Delivery O2 Flow Rate FiO2 07/06/22 20:15 97 Room Air 07/06/22 20:14 36.4 113 16 165/96 (119) Capillary Refill : General Appearance: No Apparent Distress, WD/WN, Thin HEENT: PERRL/EOMI, Normal ENT Inspection, Pharynx Normal Neck: Full Range of Motion, Normal Inspection, Non Tender, Supple, Carotid Bruit Respiratory: Chest Non Tender, Lungs Clear, Normal Breath Sounds, No Accessory Muscle Use, No Respiratory Distress Cardiovascular: Regular Rate, Rhythm, No Edema, No Gallop, No JVD, No Murmur, Normal Peripheral Pulses Gastrointestinal: Normal Bowel Sounds, No Organomegaly, No Pulsatile Mass, Non Tender, Soft Back: Normal Inspection, No CVA Tenderness, No Vertebral Tenderness Extremity: Normal Capillary Refill, Normal Inspection, Normal Range of Motion, Non Tender, No Calf Tenderness, No Pedal Edema Neurologic/Psychiatric: Alert, Oriented x3, biomedical engineering director II-XII Norm as Tested, Abnormal Gait, Aphasia, Depressed Affect, Motor Weakness (left sided leg 2/5 left arm 3/5) Skin: Normal Color, Warm/Dry Lymphatic: No Adenopathy Results/Procedures Lab Laboratory Tests 07/06/22 07:03 Patient resulted labs reviewed. FIM Transfers Therapy Code Descriptions/Definitions Functional [place] Measure: 0=Not Assessed/NA 4=Minimal Assistance 1=Total Assistance 5=Supervision or Setup 2=Maximal Assistance 6=Modified [place] 3=Moderate Assistance 7=Complete IndependenceSCALE: Activities may be completed with or without assistive devices. 1-Jwxqmorwjd-odrrnow completes the activity by him/herself with no assistance from a helper. 5-Set-up or Clean-up Assistance-helper sets up or cleans up; patient completes activity. [place] assists only prior to or following the activity. 4-Supervision or Touching Assistance-helper provides verbal cues and/or touchi ng/steadying and/or contact guard assistance as patient completes activity. Assistance may be provided throughout the activity or intermittently. 3-Partial/Moderate Assistance-helper does LESS THAN HALF the effort. [place] lifts, holds or supports trunk or limbs, but provides less than half the effort. 2-Substantial/Maximal Assistance-helper does MORE THAN HALF the effort. [place] lifts or holds trunk or limbs and provides more than half the effort. 9-Mqlzsupcy-ulslkt does ALL the effort. Patient does none of the effort to complete the activity. Or, the assistance of 2 or more helpers is required for the patient to complete the activity. If activity was not attempted, code reason: 7-Patient Refused. 9-Not Applicable-not attempted and the patient did not perform the activity befo re the current illness, exacerbation or injury. 10-Not Attempted due to Environmental Limitations-(lack of equipment, weather restraints, etc.). 88-Not Attempted due to Medical Conditions or Safety Concerns. Roll Left to Right (QC): 6 Sit to Lying (QC): 6 Sit to Stand (QC): 3 (min (A) of 1 to FWW with v.c. for hand placement.) Chair/Map-io-Wxxnf Xfer(QC): 1 (Stand pivots: min-mod (A) of 2 with FWW with cues for walker management, safety with turn and hand placement. Swing pivot min (A)-mod (A) of 1 with cues.) Car Transfer (QC): 1 (mod (A) of 2 for safety/LOB) Gait Training Does the Patient Walk?: Yes Walk 10 feet (QC): 1 (mod (A) of 2 without bracing/AFO. (L) foot drop. 3rd person for w/c backup.) Walk 50 ft with 2 Turns(QC): 88 (unable due to fatigue) Walk 150 ft (QC): 88 (unable due to fatigue.) Walking 10ft/uneven surface-QC: 1 (Mod (A) of 2 with assist with walker propulsion - LOB when attempting to advance (L) LE.) Gait Assistive Device: FWW Wheelchair Training Does the Pt Use a Wheelchair?: Yes Distance: 50' Wheel 50 ft with 2 turns (QC): 3 (With (B) LE's -- SBA-min (A) with ocassional assist to back chair up if (L) foot lagged behind, and prn assist for turns. Patient fatigued at 50') Wheel 150 ft (QC): 88 (too fatigued) Type of Wheelchair: Manual Stair Training 1 Step (curb) (QC): 1 (2" curb with FWW mod (A) of 2) 4 Steps (QC): 88 12 Steps (QC): 88 Balance Picking up an Object (QC): 3 (Min (A) of 1-2 with FWW and draw machine operator with LOB to (L) after object was lifted off floor with draw machine operator in (R) UE.) ADL-Treatment Eating (QC): 5 (Pt able to feed self independently, spilled some liquids requiring clean up assistance.) Oral Hygiene (QC): 4 (SBA seated) Shower/Bathe Self (QC): 1 (2 person assist required at this time for safety.) Upper Body Dressing (QC): 4 (SBA) Lower Body Dressing (QC): 1 (2 person assist required at this time for safety. ) On/Off Footwear (QC): 3 (SBA with slip on shoes seated. Min A with socks.) Toileting Hygiene (QC): 1 (2 person assist required at this time for safety with clothing management in standing. 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
[2022-07-06 07:15] LABS: BASOPHILS # (AUTO) 0.1 10^3/uL (0.0-0.1); BASOPHILS % (AUTO) 1 % (0-10); EOSINOPHILS # (AUTO) 0.2 10^3/uL (0.0-0.3); EOSINOPHILS % (AUTO) 2 % (0-10); HEMATOCRIT 37 % (40-54); HEMOGLOBIN 12.3 g/dL (13.3-17.7); LYMPHOCYTES # (AUTO) 2.1 10^3/uL (1.0-4.0); LYMPHOCYTES % (AUTO) 25 % (12-44); MEAN CORPUSCULAR HEMOGLOBIN 31 pg (25-34); MEAN CORPUSCULAR HGB CONC 33 g/dL (32-36); MEAN CORPUSCULAR VOLUME 95 fL (80-99); MEAN PLATELET VOLUME 11.2 fL (9.0-12.2); MONOCYTES # (AUTO) 0.6 10^3/uL (0.0-1.0); MONOCYTES % (AUTO) 7 % (0-12); NEUTROPHILS # (AUTO) 5.4 10^3/uL (1.8-7.8); NEUTROPHILS % (AUTO) 63 % (42-75); PLATELET COUNT 227 10^3/uL (130-400); WHITE BLOOD COUNT 8.5 10^3/uL (4.3-11.0)
[2022-07-06 07:25] LABS: ALBUMIN 3.8 GM/DL (3.2-4.5)
[2022-07-06 07:26] LABS: POTASSIUM 4.3 MMOL/L (3.6-5.0)
[2022-07-06 07:27] LABS: CALCIUM 8.9 MG/DL (8.5-10.1)
[2022-07-06 07:28] LABS: TOTAL PROTEIN 7.5 GM/DL (6.4-8.2)
[2022-07-06 07:30] LABS: BILIRUBIN,TOTAL 0.3 MG/DL (0.1-1.0)
[2022-07-06 07:32] LABS: CREATININE SERUM 1.11 MG/DL (0.60-1.30)
--- NOTE | 2022-07-06 09:30 | Physical Therapy Daily Note ---
PT Daily Note-Current Subjective Pt found seated in recliner /c RN present upon entry. Agreed to PT. Pt states that he is not having any pain. Reports fatigue in LEs near end of visit. Co- treatment /c OT from 2922-2567 for safety and skilled intervention of two therapists. Pain Section J - Health Conditions 1. Rarely or not at all 2. Occasionally 3. Frequently 4. Almost constantly 8. Unable to answer Pain Effect on Sleep: 1 Pain Interference with Therapy: 1 Pain Interference w/Day-to-Day: 1 Mental Status Patient Orientation: Person, Place Transfers SCALE: Activities may be completed with or without assistive devices. 7-Pazonlvkpt-qfcshiq completes the activity by him/herself with no assistance from a helper. 5-Set-up or Clean-up Assistance-helper sets up or cleans up; patient completes activity. [place] assists only prior to or following the activity. 4-Supervision or Touching Assistance-helper provides verbal cues and/or touching/steadying and/or contact guard assistance as patient completes activity. Assistance may be provided throughout the activity or intermittently. 3-Partial/Moderate Assistance-helper does LESS THAN HALF the effort. [place] lifts, holds or supports trunk or limbs, but provides less than half the effort. 2-Substantial/Maximal Assistance-helper does MORE THAN HALF the effort. [place] lifts or holds trunk or limbs and provides more than half the effort. 3-Utqoocljb-tibqhy does ALL the effort. Patient does none of the effort to complete the activity. Or, the assistance of 2 or more helpers is required for the patient to complete the activity. If activity was not attempted, code reason: 7-Patient Refused. 9-Not Applicable-not attempted and the patient did not perform the activity before the current illness, exacerbation or injury. 10-Not Attempted due to Environmental Limitations-(lack of equipment, weather restraints, etc.). 88-Not Attempted due to Medical Conditions or Safety Concerns. Roll Left & Right (QC): 6 Sit to Lying (QC): 6 Lying to Sitting/Side of Bed(Q: 6 Sit to Stand (QC): 4 Toilet Transfer (QC): 4 Pt independent /c bed mobility. CGA /c sit to stand and toilet transfers for safety due to balance and safety awareness deficits. Weight Bearing Full Weight Bearing Weight Bearing/Tolerated Foot drop (L) Gait Training Does the Patient Walk?: Yes Distance: 75, 75 Walk 10 feet (QC): 4 Walk 50 ft with 2 Turns(QC): 4 Gait Persons Needed: 1 Gait Assistive Device: FWW Pt CGA /c gait training /c use of FWW. Ambulates up to 75 feet before requiring a seated rest break. Pt ambulates /c use of AFO on L side. Displays excessive hi p flexion while advancing LLE. Occasionally has difficulty /c sequencing but is able to self correct without verbal cues. No loss of balance demonstrated throughout. Wheelchair Training Does the Pt Use a Wheelchair?: Yes Wheel 50 ft with 2 turns (QC): 4 Wheel 150 ft (QC): 4 Type of Wheelchair: Manual SBA for safety due to safety awareness deficits. Wheels up to 150 feet before requiring a short rest break. Able to self-mobilize /c use of UEs and LEs. Exercises NuStep Minutes: 10 NuStep Workload: 4 Treatments Supine exercises: SLRs x 10 B TA sets /c ball x 10 Standing exercises: Mini squats x 10 Retrograde ambulation x 10 feet OT-led UE exercise Assessment Current Status: Good Progress Pt displays good muscle strength throughout visit. Limited endurance /c ambulation. Ambulates /c use of AFO on L side and FWW. Able to ambulate up to 75 feet before requiring a seated rest break. Displays excessive hip flexion on L while ambulating likely to compensate /c poor heel strike. Required short rest breaks /c therapeutic exercises. Continue to progress pt as tolerated per POC to improve strength, endurance, and safety awareness. PT Mounted [employer] Goals Penit[facility]iary Goals PT [employer]ed [employer] Goals Time Frame: July 20, 2022 Roll Left & Right (QC): 6 Sit to Lying (QC): 6 Lying-Sitting on Side/Bed(QC): 6 Sit to Stand (QC): 5 Chair/Flg-ul-Ovlbb Xfer(QC): 5 (with FWW) Toilet Transfer (QC): 5 (with grab bar or FWW) Car Transfer (QC): 5 (with FWW) Does the Patient Walk: Yes Walk 10 feet (QC): 4 (CGA with FWW and (L) AFO) Walk 50ft with 2 Turns (QC): 4 (CGA with FWW and (L) AFO) Walk 150 ft (QC): 4 (CGA with FWW and AFO) Walking 10ft on Uneven Surface: 4 (CGA with FWW and (L) AFO) 1 Step (curb) (QC): 4 (with FWW) 4 Steps (QC): 3 (min (A) with rails) 12 Steps (QC): 9 Picking up an Object (QC): 5 (with FWW and brusher operator) Does the Pt use WC or Scooter?: Yes Wheel 50 feet with 2 turns (QC: 6 Type: Manual Wheel 150 feet: 6 Type: Manual PT Plan Treatment/Plan Treatment Plan: Continue Plan of Care Treatment Plan: Bed Mobility, Education, Functional Activity [place], Functional Strength, Group Therapy, Gait, Safety, Therapeutic Exercise, Transfers Treatment Duration: July 20, 2022 Frequency: At least 5 of 7 days/Wk (IRF) Estimated Hrs Per Day: 1.5 hours per day Patient and/or Family Agrees t: Yes Time Time In: 08 Time Out: 929 DATE: July 06, 2022 Total Billed Treatment Time: 90 Total Billed Treatment 1 visit GT x 2 FA x 2 EX x 2 Individual treatment time: 7138-9780 Co-treatment time: 0988-8216 Total treatment time: 7318-5438 NARGIS SERRANO PTA July 06, 2022 09:30
[2022-07-06 10:03] VITALS: BP 136/82
[2022-07-06] MEDS: FLUoxetine HCL 10 MG (PROzac) CAPSULE/TABLET PO SCH (10:05)
[2022-07-06] MEDS: APIXABAN 5 MG (ELIQUIS) TABLET PO SCH ×2 (10:05→20:13)
[2022-07-06] MEDS: ASPIRIN 81 MG CHEW (CHILDREN'S ASA) PO SCH (10:05)
[2022-07-06] MEDS: PANTOPRAZOLE 40 MG (PROTONIX) TAB PO SCH (10:05)
[2022-07-06] MEDS: SENNA W/DOCUSATE (SENOKOT S) TABLET PO SCH ×2 (10:06→21:51)
[2022-07-06] MEDS: DOCUSATE SODIUM 100 MG (COLACE) CAP PO SCH ×2 (10:06→21:51)
[2022-07-06] MEDS: OLANZapine 2.5 MG (ZyPREXA) TAB PO SCH (10:06)
[2022-07-06] MEDS: polyethylene glycoL POWDER 17 GM (MIRALAX) PACK PO SCH ×2 (10:06→21:51)
[2022-07-06] MEDS: DICLOFENAC 1% GEL 100 GM (VOLTAREN) TUBE TOP SCH ×4 (10:07→20:14)
--- NOTE | 2022-07-06 11:18 | Occupational Ther Daily Note ---
OT Current Status-Daily Note Subjective Pt alert, working with PT. PT/OT co-treat ([id number]), skills of 2 clinicians to decrease fall risk, increase functional mobility and strength while completing tasks that required skills of 2 clinicians. PT focusing on transfers, ambulation and strengthening while OT focusing on B UE strengthening and functional mobility. Mental Status/Objective Patient Orientation: Person, Place, Time, Situation ADL-Treatment Pt completed shower using grabbars, hand held shower and shower bench while sitting 100% of the time with supervision. Set up for UBD and footwear. Pt threaded feet through pant legs by self then CGA to hike pants over hips by self. Independent with oral care and eating. After session, pt lying in bed with call light/phone in reach. All needs met in room. Therapy Code Descriptions/Definitions Functional [place] Measure: 0=Not Assessed/NA 4=Minimal Assistance 1=Total Assistance 5=Supervision or Setup 2=Maximal Assistance 6=Modified [place] 3=Moderate Assistance 7=Complete IndependenceSCALE: Activities may be completed with or without assistive devices. 8-Abtyhwptwr-ocrbcgp completes the activity by him/herself with no assistance from a helper. 5-Set-up or Clean-up Assistance-helper sets up or cleans up; patient completes activity. [place] assists only prior to or following the activity. 4-Supervision or Touching Assistance-helper provides verbal cues and/or touching/steadying and/or contact guard assistance as patient completes activity. Assistance may be provided throughout the activity or intermittently. 3-Partial/Moderate Assistance-helper does LESS THAN HALF the effort. [place] lifts, holds or supports trunk or limbs, but provides less than half the effort. 2-Substantial/Maximal Assistance-helper does MORE THAN HALF the effort. [place] lifts or holds trunk or limbs and provides more than half the effort. 0-Aqllklesq-vfwpbo does ALL the effort. Patient does none of the effort to complete the activity. Or, the assistance of 2 or more helpers is required for the patient to complete the activity. If activity was not attempted, code reason: 7-Patient Refused. 9-Not Applicable-not attempted and the patient did not perform the activity before the current illness, exacerbation or injury. 10-Not Attempted due to Environmental Limitations-(lack of equipment, weather restraints, etc.). 88-Not Attempted due to Medical Conditions or Safety Concerns. Eating (QC): 6 Oral Hygiene (QC): 6 Shower/Bathe Self (QC): 4 Upper Body Dressing (QC): 5 Lower Body Dressing (QC): 4 On/Off Footwear: 5 Toileting Hygiene (QC): 5 (using urinal) Other Treatment Pt completed B UE strengthening exercises with dowel cam and 3# hand wts to increase strength for daily functional tasks. Pt given fine motor coordination/dexterity exercises to do while in room. See PT notes for mobility progress. OT Short Term Goals Short Term Goals Time Frame: July 15, 2022 Upper body dressin Lower body dressin Putting on/taking off footwear: 5 OT Shelter Goals Driver License Reviewing Officer Goals Time Frame: July 24, 2022 Acute change in mental status: 0 Inattention: 0 Disorganized thinkin Altered level of consciousness: 0 Eating (QC): 6 Oral Hygiene (QC): 6 Toileting Hygiene (QC): 6 Shower/Bathe Self (QC): 6 Upper Body Dressing (QC): 6 Lower Body Dressing (QC): 6 On/Off Footwear (QC): 6 Additional Goals: 1-Demonstrate ADL Tasks, 2-Verbalize Understanding, 3- ImproveStrength/[place] 1=Demonstrate adherence to instructed precautions during ADL tasks. 2=Patient will verbalize/demonstrate understanding of assistive devices/modifications for ADL. 3=Patient will improve strength/tolerance for activity to enable patient to perform ADL's. OT Education/Plan Problem List/Assessment Assessment: Decreased Safety Aware, Decreased UE Strength, Impaired Coordination, Impaired Funct Balance, Impaired Self-Care Skills Discharge Recommendations Plan/Recommendations: Continue POC Treatment Plan/Plan of Care Patient would benefit from OT for education, treatment and training to promote independence in ADL's, mobility, safety and/or upper extremity function for ADL's. Plan of Care: ADL Retraining, Functional Mobility, Group Exercise/Act as Ind, UE Funct Exercise/Act, UE Neuromus Re-Ed/Coord Treatment Duration: July 24, 2022 Frequency: At least 5 of 7 days/Wk (IRF) Estimated Hrs Per Day: 1.5 hours per day Agreement: Yes Rehab Potential: Fair Time Start Time: 08:50 Stop Time: 10:30 DATE: July 06, 2022 Total Time Billed (hr/min): 100 Billed Treatment Time 1 visit-ADL 2 (30 min) EX 5 (70 min) co-treat with PT 40 min ([id number]), individual [id number] EDWIN HAUSER July 06, 2022 11:18
[2022-07-06] MEDS ORDERED: LORazepam INJ 2 MG/ML (ATIVAN) VIAL IM PRN (11:45)
[2022-07-06 13:40] LABS: HEPATITIS C ANTIBODY C Non-Reactive (Non-Reactive)
[2022-07-06] MEDS ORDERED: diphenhydrAMINE 25 MG TAB (BENADRYL) PO PRN (14:15)
[2022-07-06] MEDS ORDERED: RELABEL FOR HOME USE MC SCH (14:15)
[2022-07-06] MEDS ORDERED: PATIENT MAY USE OWN MED,SINGLE MED PO SCH (14:30)
[2022-07-06] MEDS: ALPRAZolam 0.25 MG (XANAX) TAB PO PRN (16:14)
[2022-07-06] MEDS: DIPHENHYDRAMINE 25 MG PO PRN (17:31)
[2022-07-06] MEDS: TEMAZEPAM 15 MG (RESTORIL) CAP PO SCH (20:13)
[2022-07-06 20:14] VITALS: BP 165/96
[2022-07-06] MEDS: ACETAMINOPHEN 325 MG TABLET PO PRN (20:14)
[2022-07-07] MEDS: ALPRAZolam 0.25 MG (XANAX) TAB PO PRN ×2 (00:35→15:02)
--- NOTE | 2022-07-07 06:50 | PM&R Progress Note ---
Subjective HPI/CC On Admission Date Seen by Provider: July 07, 2022 Time Seen by Provider: 09:00 Subjective/Events-last exam 07/07/2022: Doing well Hallucinations every evening No new issues 07/06/2022: No major issues Remains impulsive Evening time he becomes agitated and requires antipsychotics and ativan Labs reviewed and liver improved 07/05/2022: Patient was agitated last evening requiring IM Ativan Improved overall Impulsive and a major fall risk 07/04/2022: Doing well LFT's elevated unsure of chronicity Patient improved overall No falls BM regimen maintained Review of Systems General: Fatigue, Malaise Neurological: Weakness, Incoordination, Confusion Objective Exam Vital Signs Vital Signs Date Time Temp Pulse Resp B/P (MAP) Pulse Ox O2 Delivery O2 Flow Rate FiO2 07/07/22 20:20 36.8 99 18 145/79 (101) 97 Room Air Capillary Refill : General Appearance: No Apparent Distress, WD/WN, Thin HEENT: PERRL/EOMI, Normal ENT Inspection, Pharynx Normal Neck: Full Range of Motion, Normal Inspection, Non Tender, Supple, Carotid Bruit Respiratory: Chest Non Tender, Lungs Clear, Normal Breath Sounds, No Accessory Muscle Use, No Respiratory Distress Cardiovascular: Regular Rate, Rhythm, No Edema, No Gallop, No JVD, No Murmur, Normal Peripheral Pulses Gastrointestinal: Normal Bowel Sounds, No Organomegaly, No Pulsatile Mass, Non Tender, Soft Back: Normal Inspection, No CVA Tenderness, No Vertebral Tenderness Extremity: Normal Capillary Refill, Normal Inspection, Normal Range of Motion, Non Tender, No Calf Tenderness, No Pedal Edema Neurologic/Psychiatric: Alert, Oriented x3, slope tender II-XII Norm as Tested, Abnormal Gait, Aphasia, Depressed Affect, Motor Weakness Skin: Normal Color, Warm/Dry Lymphatic: No Adenopathy Results/Procedures Lab Patient resulted labs reviewed. FIM Transfers Therapy Code Descriptions/Definitions Functional [place] Measure: 0=Not Assessed/NA 4=Minimal Assistance 1=Total Assistance 5=Supervision or Setup 2=Maximal Assistance 6=Modified [place] 3=Moderate Assistance 7=Complete IndependenceSCALE: Activities may be completed with or without assistive devices. 4-Lliepdzpfn-nmarqdc completes the activity by him/herself with no assistance from a helper. 5-Set-up or Clean-up Assistance-helper sets up or cleans up; patient completes activity. [place] assists only prior to or following the activity. 4-Supervision or Touching Assistance-helper provides verbal cues and/or touching/steadying and/or contact guard assistance as patient completes activity. Assistance may be provided throughout the activity or intermittently. 3-Partial/Moderate Assistance-helper does LESS THAN HALF the effort. [place] lifts, holds or supports trunk or limbs, but provides less than half the effort. 2-Substantial/Maximal Assistance-helper does MORE THAN HALF the effort. [place] lifts or holds trunk or limbs and provides more than half the effort. 2-Lbfagkypl-wrfsmw does ALL the effort. Patient does none of the effort to complete the activity. Or, the assistance of 2 or more helpers is required for the patient to complete the activity. If activity was not attempted, code reason: 7-Patient Refused. 9-Not Applicable-not attempted and the patient did not perform the activity before the current illness, exacerbation or injury. 10-Not Attempted due to Environmental Limitations-(lack of equipment, weather restraints, etc.). 88-Not Attempted due to Medical Conditions or Safety Concerns. Roll Left to Right (QC): 6 Sit to Lying (QC): 6 Sit to Stand (QC): 4 Chair/Qde-af-Ceiis Xfer(QC): 1 (Stand pivots: min-mod (A) of 2 with FWW with cues for walker management, safety with turn and hand placement. Swing pivot min (A)-mod (A) of 1 with cues.) Car Transfer (QC): 1 (mod (A) of 2 for safety/LOB) Gait Training Does the Patient Walk?: Yes Distance: 75, 75 Walk 10 feet (QC): 4 Walk 50 ft with 2 Turns(QC): 4 Walk 150 ft (QC): 88 (unable due to fatigue.) Walking 10ft/uneven surface-QC: 1 (Mod (A) of 2 with assist with walker propulsion - LOB when attempting to advance (L) LE.) Gait Persons Needed: 1 Gait Assistive Device: FWW Wheelchair Training Does the Pt Use a Wheelchair?: Yes Distance: 50' Wheel 50 ft with 2 turns (QC): 4 Wheel 150 ft (QC): 4 Type of Wheelchair: Manual Stair Training 1 Step (curb) (QC): 1 (2" curb with FWW mod (A) of 2) 4 Steps (QC): 88 12 Steps (QC): 88 Balance Picking up an Object (QC): 3 (Min (A) of 1-2 with FWW and document scanner with LOB to (L) after object was lifted off floor with document scanner in (R) UE.) ADL-Treatment Eating (QC): 6 Oral Hygiene (QC): 6 Shower/Bathe Self (QC): 4 Upper Body Dressing (QC): 5 Lower Body Dressing (QC): 4 On/Off Footwear (QC): 5 Toileting Hygiene (QC): 5 (using urinal) Assessment/Plan Assessment and Plan Assess & Plan/Chief Complaint Assessment: 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
[2022-07-07 08:39] VITALS: BP 118/66
[2022-07-07] MEDS: APIXABAN 5 MG (ELIQUIS) TABLET PO SCH ×2 (08:52→20:24)
[2022-07-07] MEDS: FLUoxetine HCL 10 MG (PROzac) CAPSULE/TABLET PO SCH (08:52)
[2022-07-07] MEDS: OLANZapine 2.5 MG (ZyPREXA) TAB PO SCH (08:52)
[2022-07-07] MEDS: PANTOPRAZOLE 40 MG (PROTONIX) TAB PO SCH (08:52)
[2022-07-07] MEDS: ASPIRIN 81 MG CHEW (CHILDREN'S ASA) PO SCH (08:52)
[2022-07-07] MEDS: SENNA W/DOCUSATE (SENOKOT S) TABLET PO SCH ×2 (08:53→20:26)
[2022-07-07] MEDS: polyethylene glycoL POWDER 17 GM (MIRALAX) PACK PO SCH ×2 (08:53→20:26)
[2022-07-07] MEDS: DOCUSATE SODIUM 100 MG (COLACE) CAP PO SCH ×2 (08:53→20:26)
[2022-07-07] MEDS: DICLOFENAC 1% GEL 100 GM (VOLTAREN) TUBE TOP SCH ×4 (08:55→20:26)
[2022-07-07] MEDS: ACETAMINOPHEN 325 MG TABLET PO PRN ×2 (08:55→21:28)
--- NOTE | 2022-07-07 09:00 | Physical Therapy Daily Note ---
PT Daily Note-Current Subjective Pt found seated on edge of bed /c nurse present upon entry. Agreed to PT. States that he had a lot of anxiety last night and did not sleep well. Reports tingling in L foot during therapeutic exercises. Denies pain. Pain Section J - Health Conditions 1. Rarely or not at all 2. Occasionally 3. Frequently 4. Almost constantly 8. Unable to answer Pain Effect on Sleep: 1 Pain Interference with Therapy: 1 Pain Interference w/Day-to-Day: 1 Mental Status Patient Orientation: Person, Place Transfers SCALE: Activities may be completed with or without assistive devices. 8-Ubqdfvfjge-tfiymzn completes the activity by him/herself with no assistance from a helper. 5-Set-up or Clean-up Assistance-helper sets up or cleans up; patient completes activity. [place] assists only prior to or following the activity. 4-Supervision or Touching Assistance-helper provides verbal cues and/or touching/steadying and/or contact guard assistance as patient completes activity. Assistance may be provided throughout the activity or intermittently. 3-Partial/Moderate Assistance-helper does LESS THAN HALF the effort. [place] lifts, holds or supports trunk or limbs, but provides less than half the effort. 2-Substantial/Maximal Assistance-helper does MORE THAN HALF the effort. [place] lifts or holds trunk or limbs and provides more than half the effort. 8-Txqgzjvah-tnnslh does ALL the effort. Patient does none of the effort to complete the activity. Or, the assistance of 2 or more helpers is required for the patient to complete the activity. If activity was not attempted, code reason: 7-Patient Refused. 9-Not Applicable-not attempted and the patient did not perform the activity before the current illness, exacerbation or injury. 10-Not Attempted due to Environmental Limitations-(lack of equipment, weather restraints, etc.). 88-Not Attempted due to Medical Conditions or Safety Concerns. Roll Left & Right (QC): 6 Sit to Lying (QC): 6 Lying to Sitting/Side of Bed(Q: 6 Sit to Stand (QC): 4 Pt independent /c bed mobility. CGA /c sit to stand transfers due to safety awareness and strength deficits. Weight Bearing Full Weight Bearing Weight Bearing/Tolerated Foot drop (L) Gait Training Does the Patient Walk?: Yes Distance: 150, 150, 50 Walk 10 feet (QC): 4 Walk 50 ft with 2 Turns(QC): 4 Walk 150 ft (QC): 4 Gait Persons Needed: 1 Gait Assistive Device: FWW Pt ambulates /c use of FWW and CGA. Pt frequently displays toe drag on L side and losses balance. Requires steadying assistance from helper to avoid falling anteriorly. Pt able to ambulate up to 150 feet before requiring a seated rest break. Continues to demonstrate excessive hip flexion while advancing LLE. Unable to complete heel strike likely due to dorsiflexor weakness. Treatments Standing exercises: Heel/toe raises x 10 Hamstring curls x 10 Hip abd x 10 Heel taps on step x 5 Seated exercises: Long arc quads x 10 Supine exercises: AAROM ankle pumps x 15 Assessment Current Status: Good Progress Pt displays increased endurance /c ambulation this visit. Able to ambulate up to 150 feet before requiring a seated rest break. Pt demonstrates difficulty /c dorsiflexion on L side and required AAROM to complete ankle pumps. Continues to display excessive hip flexion during gait cycle while advancing LLE likely due to dorsiflexor weakness. Pt required seated rest breaks /c therapeutic exercise. Continue to progress pt as tolerated per POC to improve strength, endurance, and functional ability. PT [facility] Goals Brush Fabrication Supervisor Goals PT Brush Fabrication Supervisor Goals Time Frame: July 20, 2022 Roll Left & Right (QC): 6 Sit to Lying (QC): 6 Lying-Sitting on Side/Bed(QC): 6 Sit to Stand (QC): 5 Chair/Irn-ro-Yrnwb Xfer(QC): 5 (with FWW) Toilet Transfer (QC): 5 (with grab bar or FWW) Car Transfer (QC): 5 (with FWW) Does the Patient Walk: Yes Walk 10 feet (QC): 4 (CGA with FWW and (L) AFO) Walk 50ft with 2 Turns (QC): 4 (CGA with FWW and (L) AFO) Walk 150 ft (QC): 4 (CGA with FWW and AFO) Walking 10ft on Uneven Surface: 4 (CGA with FWW and (L) AFO) 1 Step (curb) (QC): 4 (with FWW) 4 Steps (QC): 3 (min (A) with rails) 12 Steps (QC): 9 Picking up an Object (QC): 5 (with FWW and process excellence manager) Does the Pt use WC or Scooter?: Yes Wheel 50 feet with 2 turns (QC: 6 Type: Manual Wheel 150 feet: 6 Type: Manual PT Plan Treatment/Plan Treatment Plan: Continue Plan of Care Treatment Plan: Bed Mobility, Education, Functional Activity [place], Functional Strength, Group Therapy, Gait, Safety, Therapeutic Exercise, Transfers Treatment Duration: July 20, 2022 Frequency: At least 5 of 7 days/Wk (IRF) Estimated Hrs Per Day: 1.5 hours per day Patient and/or Family Agrees t: Yes Time Time In: 0800 Time Out: 0900 DATE: July 07, 2022 Total Billed Treatment Time: 60 Total Billed Treatment 1 visit EX x 3 GT x 2 FA x 1 NARGIS SERRANO PTA July 07, 2022 09:00
--- NOTE | 2022-07-07 11:33 | Occupational Ther Daily Note ---
OT Current Status-Daily Note Subjective Pt alert, sitting in w/c. Pt agrees to therapy. Pt discussed anxiety last night. No c/o pain. Mental Status/Objective Patient Orientation: Person, Place, Time, Situation ADL-Treatment Pt agrees to complete shower. Pt gathered clothing at w/c level then transported to bathroom. Pt completed shower sitting 100% of the time on bench using grabbars and hand held shower, independently. Pt completed UBD and footwear independently. LBD CGA while standing to hike pants. Toileting and toilet transfer supervision for safety. Oral care independent sitting at sink. Therapy Code Descriptions/Definitions Functional [place] Measure: 0=Not Assessed/NA 4=Minimal Assistance 1=Total Assistance 5=Supervision or Setup 2=Maximal Assistance 6=Modified [place] 3=Moderate Assistance 7=Complete IndependenceSCALE: Activities may be completed with or without assistive devices. 5-Fdraildubq-wydrdtu completes the activity by him/herself with no assistance from a helper. 5-Set-up or Clean-up Assistance-helper sets up or cleans up; patient completes activity. [place] assists only prior to or following the activity. 4-Supervision or Touching Assistance-helper provides verbal cues and/or touching/steadying and/or contact guard assistance as patient completes activity. Assistance may be provided throughout the activity or intermittently. 3-Partial/Moderate Assistance-helper does LESS THAN HALF the effort. [place] lift s, holds or supports trunk or limbs, but provides less than half the effort. 2-Substantial/Maximal Assistance-helper does MORE THAN HALF the effort. [place] lifts or holds trunk or limbs and provides more than half the effort. 4-Jusvmauye-hgezez does ALL the effort. Patient does none of the effort to complete the activity. Or, the assistance of 2 or more helpers is required for the patient to complete the activity. If activity was not attempted, code reason: 7-Patient Refused. 9-Not Applicable-not attempted and the patient did not perform the activity before the current illness, exacerbation or injury. 10-Not Attempted due to Environmental Limitations-(lack of equipment, weather restraints, etc.). 88-Not Attempted due to Medical Conditions or Safety Concerns. Eating (QC): 6 Oral Hygiene (QC): 6 Shower/Bathe Self (QC): 6 Upper Body Dressing (QC): 6 Lower Body Dressing (QC): 4 On/Off Footwear: 6 Toileting Hygiene (QC): 4 Toilet Transfer (QC): 4 Other Treatment Pt completed B UE exercises to increase strength, coordination and dexterity for daily functional tasks. Skilled instruction for correct technique and modifications when necessary. Arm bike at 25 castillo resistance for 15 min withou t recovery breaks. Wrist flex/ext/uln dev/rad dev using 3# hand weight, 3 sets 10 reps. Medium resistance theraputty task finding small beads only with L hand to work on strength and dexterity. After session, pt lying in bed with call light/phone in reach. All needs met in room. OT Short Term Goals Short Term Goals Time Frame: July 15, 2022 Upper body dressin Lower body dressin Putting on/taking off footwear: 5 OT Civil Rights Representative Goals Civil Rights Representative Goals Time Frame: July 24, 2022 Acute change in mental status: 0 Inattention: 0 Disorganized thinkin Altered level of consciousness: 0 Eating (QC): 6 Oral Hygiene (QC): 6 Toileting Hygiene (QC): 6 Shower/Bathe Self (QC): 6 Upper Body Dressing (QC): 6 Lower Body Dressing (QC): 6 On/Off Footwear (QC): 6 Additional Goals: 1-Demonstrate ADL Tasks, 2-Verbalize Understanding, 3- ImproveStrength/[place] 1=Demonstrate adherence to instructed precautions during ADL tasks. 2=Patient will verbalize/demonstrate understanding of assistive devices/modifications for ADL. 3=Patient will improve strength/tolerance for activity to enable patient to perform ADL's. OT Education/Plan Problem List/Assessment Assessment: Impaired Coordination, Impaired Funct Balance Discharge Recommendations Plan/Recommendations: Continue POC Treatment Plan/Plan of Care Patient would benefit from OT for education, treatment and training to promote independence in ADL's, mobility, safety and/or upper extremity function for ADL's. Plan of Care: ADL Retraining, Functional Mobility, Group Exercise/Act as Ind, UE Funct Exercise/Act, UE Neuromus Re-Ed/Coord Treatment Duration: July 24, 2022 Frequency: At least 5 of 7 days/Wk (IRF) Estimated Hrs Per Day: 1.5 hours per day Agreement: Yes Rehab Potential: Fair Time Start Time: 09:30 Stop Time: 11:05 DATE: July 07, 2022 Total Time Billed (hr/min): 95 Billed Treatment Time 1 visit-ADL 2 (35 min) EX 4 (60 min) EDWIN HAUSER July 07, 2022 11:33
--- NOTE | 2022-07-07 12:41 | Physical Therapy Daily Note ---
PT Daily Note-Current Subjective Pt found seated on edge of bed upon entry. Agreed to PT. No reports of pain. Pain Section J - Health Conditions 1. Rarely or not at all 2. Occasionally 3. Frequently 4. Almost constantly 8. Unable to answer Pain Effect on Sleep: 1 Pain Interference with Therapy: 1 Pain Interference w/Day-to-Day: 1 Mental Status Patient Orientation: Person, Place Transfers SCALE: Activities may be completed with or without assistive devices. 2-Heusbiggst-ncgirmh completes the activity by him/herself with no assistance from a helper. 5-Set-up or Clean-up Assistance-helper sets up or cleans up; patient completes activity. [place] assists only prior to or following the activity. 4-Supervision or Touching Assistance-helper provides verbal cues and/or touching/steadying and/or contact guard assistance as patient completes activity. Assistance may be provided throughout the activity or intermittently. 3-Partial/Moderate Assistance-helper does LESS THAN HALF the effort. [place] lifts, holds or supports trunk or limbs, but provides less than half the effort. 2-Substantial/Maximal Assistance-helper does MORE THAN HALF the effort. [place] lifts or holds trunk or limbs and provides more than half the effort. 6-Qfihxlsoh-ayuznl does ALL the effort. Patient does none of the effort to complete the activity. Or, the assistance of 2 or more helpers is required for the patient to complete the activity. If activity was not attempted, code reason: 7-Patient Refused. 9-Not Applicable-not attempted and the patient did not perform the activity before the current illness, exacerbation or injury. 10-Not Attempted due to Environmental Limitations-(lack of equipment, weather restraints, etc.). 88-Not Attempted due to Medical Conditions or Safety Concerns. Sit to Stand (QC): 4 Pt CGA /c sit to stand transfers due to safety awareness and balance deficits. Weight Bearing Full Weight Bearing Weight Bearing/Tolerated Foot drop (L) Gait Training Does the Patient Walk?: Yes Distance: 300, 50 Walk 10 feet (QC): 4 Walk 50 ft with 2 Turns(QC): 4 Walk 150 ft (QC): 4 Gait Persons Needed: 1 Gait Assistive Device: FWW Pt ambulates /c use of FWW and CGA due to balance and strength deficits. Pt able to ambulate up to 300 feet before required a seated rest break. Demonstrates excessive hip flexion on LLE while advancing. Occasionally displays toe drag on L side and requires steadying assistance from helper. Exercises NuStep Minutes: 8 NuStep Workload: 4 Assessment Current Status: Good Progress Pt displays improved strength and endurance /c gait training this visit. Pt able to ambulate up to 300 feet /c use of FWW. Demonstrates good step length /c occasional loss of balance due to L toe drag. Continue to progress pt as tolerated per POC to improve strength, endurance, and functional ability. PT Steam Box Operator Goals Steam Box Operator Goals PT [facility] Goals Time Frame: July 20, 2022 Roll Left & Right (QC): 6 Sit to Lying (QC): 6 Lying-Sitting on Side/Bed(QC): 6 Sit to Stand (QC): 5 Chair/Zbd-hr-Pwysg Xfer(QC): 5 (with FWW) Toilet Transfer (QC): 5 (with grab bar or FWW) Car Transfer (QC): 5 (with FWW) Does the Patient Walk: Yes Walk 10 feet (QC): 4 (CGA with FWW and (L) AFO) Walk 50ft with 2 Turns (QC): 4 (CGA with FWW and (L) AFO) Walk 150 ft (QC): 4 (CGA with FWW and AFO) Walking 10ft on Uneven Surface: 4 (CGA with FWW and (L) AFO) 1 Step (curb) (QC): 4 (with FWW) 4 Steps (QC): 3 (min (A) with rails) 12 Steps (QC): 9 Picking up an Object (QC): 5 (with FWW and project assistant) Does the Pt use WC or Scooter?: Yes Wheel 50 feet with 2 turns (QC: 6 Type: Manual Wheel 150 feet: 6 Type: Manual PT Plan Treatment/Plan Treatment Plan: Continue Plan of Care Treatment Plan: Bed Mobility, Education, Functional Activity [place], Functional Strength, Group Therapy, Gait, Safety, Therapeutic Exercise, Transfers Treatment Duration: July 20, 2022 Frequency: At least 5 of 7 days/Wk (IRF) Estimated Hrs Per Day: 1.5 hours per day Patient and/or Family Agrees t: Yes Time Time In: 1130 Time Out: 1200 DATE: July 07, 2022 Total Billed Treatment Time: 30 Total Billed Treatment 1 visit GT x 1 EX x 1 MAJOR,NARGIS SUPERVISOR FINAL July 07, 2022 12:40
[2022-07-07] MEDS: DIPHENHYDRAMINE 25 MG PO PRN (18:50)
[2022-07-07 20:20] VITALS: BP 145/79
[2022-07-07] MEDS: TEMAZEPAM 15 MG (RESTORIL) CAP PO SCH (20:24)
[2022-07-08] MEDS: MELATONIN 3 MG TABLET PO PRN (00:01)
[2022-07-08] MEDS: ALPRAZolam 0.25 MG (XANAX) TAB PO PRN ×2 (00:01→14:23)
--- NOTE | 2022-07-08 05:27 | PM&R Progress Note ---
Subjective HPI/CC On Admission Date Seen by Provider: July 08, 2022 Time Seen by Provider: 11:00 Subjective/Events-last exam 07/08/2022: Doing well No pain Impulsive Confusion and agitation at night occurs 07/07/2022: Doing well Hallucinations every evening No new issues 07/06/2022: No major issues Remains impulsive Evening time he becomes agitated and requires antipsychotics and ativan Labs reviewed and liver improved 07/05/2022: Patient was agitated last evening requiring IM Ativan Improved overall Impulsive and a major fall risk 07/04/2022: Doing well LFT's elevated unsure of chronicity Patient improved overall No falls BM regimen maintained Review of Systems General: Fatigue, Malaise Objective Exam Vital Signs Vital Signs Date Time Temp Pulse Resp B/P (MAP) Pulse Ox O2 Delivery O2 Flow Rate FiO2 07/08/22 20:15 Room Air 07/08/22 20:01 36.8 95 16 137/67 (90) 96 Capillary Refill : General Appearance: No Apparent Distress, WD/WN, Thin HEENT: PERRL/EOMI, Normal ENT Inspection, Pharynx Normal Neck: Full Range of Motion, Normal Inspection, Non Tender, Supple, Carotid Bruit Respiratory: Chest Non Tender, Lungs Clear, Normal Breath Sounds, No Accessory Muscle Use, No Respiratory Distress Cardiovascular: Regular Rate, Rhythm, No Edema, No Gallop, No JVD, No Murmur, Normal Peripheral Pulses Gastrointestinal: Normal Bowel Sounds, No Organomegaly, No Pulsatile Mass, Non Tender, Soft Back: Normal Inspection, No CVA Tenderness, No Vertebral Tenderness Extremity: Normal Capillary Refill, Normal Inspection, Normal Range of Motion, Non Tender, No Calf Tenderness, No Pedal Edema Neurologic/Psychiatric: Alert, Oriented x3, oem sales manager II-XII Norm as Tested, Abnormal Gait, Aphasia, Depressed Affect, Motor Weakness Skin: Normal Color, Warm/Dry Lymphatic: No Adenopathy Results/Procedures Lab Patient resulted labs reviewed. FIM Transfers Therapy Code Descriptions/Definitions Functional [place] Measure: 0=Not Assessed/NA 4=Minimal Assistance 1=Total Assistance 5=Supervision or Setup 2=Maximal Assistance 6=Modified [place] 3=Moderate Assistance 7=Complete IndependenceSCALE: Activities may be completed with or without assistive devices. 6-Mmctlwtbfj-kaiajxo completes the activity by him/herself with no assistance from a helper. 5-Set-up or Clean-up Assistance-helper sets up or cleans up; patient completes activity. [place] assists only prior to or following the activity. 4-Supervision or Touching Assistance-helper provides verbal cues and/or touch ing/steadying and/or contact guard assistance as patient completes activity. Assistance may be provided throughout the activity or intermittently. 3-Partial/Moderate Assistance-helper does LESS THAN HALF the effort. [place] lifts, holds or supports trunk or limbs, but provides less than half the effort. 2-Substantial/Maximal Assistance-helper does MORE THAN HALF the effort. [place] lifts or holds trunk or limbs and provides more than half the effort. 1-Cfgnfyloq-iqigqx does ALL the effort. Patient does none of the effort to complete the activity. Or, the assistance of 2 or more helpers is required for the patient to complete the activity. If activity was not attempted, code reason: 7-Patient Refused. 9-Not Applicable-not attempted and the patient did not perform the activity before the current illness, exacerbation or injury. 10-Not Attempted due to Environmental Limitations-(lack of equipment, weather restraints, etc.). 88-Not Attempted due to Medical Conditions or Safety Concerns. Roll Left to Right (QC): 6 Sit to Lying (QC): 6 Sit to Stand (QC): 4 Chair/Dsq-bg-Ioowt Xfer(QC): 1 (Stand pivots: min-mod (A) of 2 with FWW with cues for walker management, safety with turn and hand placement. Swing pivot min (A)-mod (A) of 1 with cues.) Car Transfer (QC): 1 (mod (A) of 2 for safety/LOB) Gait Training Does the Patient Walk?: Yes Distance: 300, 50 Walk 10 feet (QC): 4 Walk 50 ft with 2 Turns(QC): 4 Walk 150 ft (QC): 4 Walking 10ft/uneven surface-QC: 1 (Mod (A) of 2 with assist with walker propulsion - LOB when attempting to advance (L) LE.) Gait Persons Needed: 1 Gait Assistive Device: FWW Wheelchair Training Does the Pt Use a Wheelchair?: Yes Distance: 50' Wheel 50 ft with 2 turns (QC): 4 Wheel 150 ft (QC): 4 Type of Wheelchair: Manual Stair Training 1 Step (curb) (QC): 1 (2" curb with FWW mod (A) of 2) 4 Steps (QC): 88 12 Steps (QC): 88 Balance Picking up an Object (QC): 3 (Min (A) of 1-2 with FWW and manager math with LOB to (L) after object was lifted off floor with manager math in (R) UE.) ADL-Treatment Eating (QC): 6 Oral Hygiene (QC): 6 Shower/Bathe Self (QC): 6 Upper Body Dressing (QC): 6 Lower Body Dressing (QC): 4 On/Off Footwear (QC): 6 Toileting Hygiene (QC): 4 Toilet Transfer (QC): 4 Assessment/Plan Assessment and Plan Assess & Plan/Chief Complaint Assessment: 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
[2022-07-08 07:44] VITALS: BP 118/87
[2022-07-08] MEDS: FLUoxetine HCL 10 MG (PROzac) CAPSULE/TABLET PO SCH (07:58)
[2022-07-08] MEDS: PANTOPRAZOLE 40 MG (PROTONIX) TAB PO SCH (07:58)
[2022-07-08] MEDS: APIXABAN 5 MG (ELIQUIS) TABLET PO SCH ×2 (07:58→21:01)
[2022-07-08] MEDS: ACETAMINOPHEN 325 MG TABLET PO PRN ×2 (07:58→19:31)
[2022-07-08] MEDS: DOCUSATE SODIUM 100 MG (COLACE) CAP PO SCH ×2 (07:58→21:02)
[2022-07-08] MEDS: OLANZapine 2.5 MG (ZyPREXA) TAB PO SCH ×2 (07:58→21:01)
[2022-07-08] MEDS: polyethylene glycoL POWDER 17 GM (MIRALAX) PACK PO SCH ×2 (08:00→21:02)
[2022-07-08] MEDS: ASPIRIN 81 MG CHEW (CHILDREN'S ASA) PO SCH (08:00)
[2022-07-08] MEDS: DICLOFENAC 1% GEL 100 GM (VOLTAREN) TUBE TOP SCH ×4 (08:01→19:31)
[2022-07-08] MEDS: SENNA W/DOCUSATE (SENOKOT S) TABLET PO SCH ×2 (08:01→21:02)
--- NOTE | 2022-07-08 11:28 | Occupational Ther Daily Note ---
OT Current Status-Daily Note Subjective Pt alert, sitting at [facility] [employer] table in w/c. Pt c/o pain in L hip, did not rate, reported to nrsg. Pt agrees to therapy. Mental Status/Objective Patient Orientation: Person, Place, Time, Situation ADL-Treatment Pt agrees to complete shower. Pt gathered clothing at w/c level then transported to bathroom. Pt completed shower sitting 100% of the time on bench using grabbars and hand held shower, independently. Pt completed UBD and footwear independently. LBD CGA while standing to hike pants. Toileting and toilet transfer supervision for safety. Oral care independent sitting at sink. Pt able to open packages and feed self independently. Pt able to complete w/c mobility independently through doorways, various surfaces and around corners independently. Therapy Code Descriptions/Definitions Functional [place] Measure: 0=Not Assessed/NA 4=Minimal Assistance 1=Total Assistance 5=Supervision or Setup 2=Maximal Assistance 6=Modified [place] 3=Moderate Assistance 7=Complete IndependenceSCALE: Activities may be completed with or without assistive devices. 6-Zazcmzcqeg-zpbhztw completes the activity by him/herself with no assistance from a helper. 5-Set-up or Clean-up Assistance-helper sets up or cleans up; patient completes activity. [place] assists only prior to or following the activity. 4-Supervision or Touching Assistance-helper provides verbal cues and/or touching/steadying and/or contact guard assistance as patient completes activity. Assistance may be provided throughout the activity or intermittently. 3-Partial/Moderate Assistance-helper does LESS THAN HALF the effort. [place] lifts, holds or supports trunk or limbs, but provides less than half the effort. 2-Substantial/Maximal Assistance-helper does MORE THAN HALF the effort. [place] lifts or holds trunk or limbs and provides more than half the effort. 2-Fwcptwpji-ycwavs does ALL the effort. Patient does none of the effort to complete the activity. Or, the assistance of 2 or more helpers is required for the patient to complete the activity. If activity was not attempted, code reason: 7-Patient Refused. 9-Not Applicable-not attempted and the patient did not perform the activity before the current illness, exacerbation or injury. 10-Not Attempted due to Environmental Limitations-(lack of equipment, weather restraints, etc.). 88-Not Attempted due to Medical Conditions or Safety Concerns. Eating (QC): 6 Oral Hygiene (QC): 6 Shower/Bathe Self (QC): 6 Upper Body Dressing (QC): 6 Lower Body Dressing (QC): 4 On/Off Footwear: 6 Toileting Hygiene (QC): 4 Toilet Transfer (QC): 4 Other Treatment Pt completed B UE strengthening exercises in supine and sitting to increase stamina and balance for daily functional tasks. 2# wt on dowel cam with 3 exercises, 2 sets 20 reps each. B UE and eye coordination at varying heights and speeds. After therapy, pt lying in bed with call light/phone in reach. All needs met. Safety measures in bed. OT Short Term Goals Short Term Goals Time Frame: July 15, 2022 Upper body dressin Lower body dressin Putting on/taking off footwear: 5 OT Offset Platemaker Goals Offset Platemaker Goals Time Frame: July 24, 2022 Acute change in mental status: 0 Inattention: 0 Disorganized thinkin Altered level of consciousness: 0 Eating (QC): 6 Oral Hygiene (QC): 6 Toileting Hygiene (QC): 6 Shower/Bathe Self (QC): 6 Upper Body Dressing (QC): 6 Lower Body Dressing (QC): 6 On/Off Footwear (QC): 6 Additional Goals: 1-Demonstrate ADL Tasks, 2-Verbalize Understanding, 3- ImproveStrength/[place] 1=Demonstrate adherence to instructed precautions during ADL tasks. 2=Patient will verbalize/demonstrate understanding of assistive devices/modifications for ADL. 3=Patient will improve strength/tolerance for activity to enable patient to perform ADL's. OT Education/Plan Problem List/Assessment Assessment: Decreased Activ Tolerance, Decreased Safety Aware, Decreased UE Strength, Impaired Coordination, Impaired Funct Balance Discharge Recommendations Plan/Recommendations: Continue POC Treatment Plan/Plan of Care Patient would benefit from OT for education, treatment and training to promote independence in ADL's, mobility, safety and/or upper extremity function for ADL's. Plan of Care: ADL Retraining, Functional Mobility, Group Exercise/Act as Ind, UE Funct Exercise/Act, UE Neuromus Re-Ed/Coord Treatment Duration: July 24, 2022 Frequency: At least 5 of 7 days/Wk (IRF) Estimated Hrs Per Day: 1.5 hours per day Agreement: Yes Rehab Potential: Fair Time Start Time: 09:30 Stop Time: 11:00 DATE: July 08, 2022 Total Time Billed (hr/min): 90 Billed Treatment Time 1 visit-ADL 2 (30 min) FA 2 (30 min) EX 2 (30 min) EDWIN HAUSER July 08, 2022 11:28
--- NOTE | 2022-07-08 12:54 | Physical Therapy Daily Note ---
PT Daily Note-Current Subjective p in bed upon arrival and willing for therapy this day. pt stated his right lateral thigh was sore but was ok to participate. Pain Section J - Health Conditions 1. Rarely or not at all 2. Occasionally 3. Frequently 4. Almost constantly 8. Unable to answer Pain Effect on Sleep: 1 Pain Interference with Therapy: 1 Pain Interference w/Day-to-Day: 1 Mental Status Patient Orientation: Person, Place, Time, Situation Transfers SCALE: Activities may be completed with or without assistive devices. 9-Oqmrpxduin-nojbedz completes the activity by him/herself with no assistance from a helper. 5-Set-up or Clean-up Assistance-helper sets up or cleans up; patient completes activity. [place] assists only prior to or following the activity. 4-Supervision or Touching Assistance-helper provides verbal cues and/or touching/steadying and/or contact guard assistance as patient completes activity. Assistance may be provided throughout the activity or intermittently. 3-Partial/Moderate Assistance-helper does LESS THAN HALF the effort. [place] lifts, holds or supports trunk or limbs, but provides less than half the effort. 2-Substantial/Maximal Assistance-helper does MORE THAN HALF the effort. [place] lifts or holds trunk or limbs and provides more than half the effort. 2-Zigdylvqp-fqdztu does ALL the effort. Patient does none of the effort to complete the activity. Or, the assistance of 2 or more helpers is required for the patient to complete the activity. If activity was not attempted, code reason: 7-Patient Refused. 9-Not Applicable-not attempted and the patient did not perform the activity before the current illness, exacerbation or injury. 10-Not Attempted due to Environmental Limitations-(lack of equipment, weather restraints, etc.). 88-Not Attempted due to Medical Conditions or Safety Concerns. Weight Bearing Full Weight Bearing Weight Bearing/Tolerated Foot drop (L) Exercises Standing: Mini squats, Side steps, Step-ups Treatments pt was able to ambulate 216ft with RW and CGA with 10%VC for correct stride length to make then equal. pt does have a longer stride on the Left side. pt ddid requires s 2 min rest secondary to fatigue but was able to ambulate further after resting for another 226 ft with RW an CGA for a total of 442 ft this day. Pt preformed side stepping in // bars to the left and to the right down and back for a total of 6 times in the // bars. VC of 25%required when stepping to the Right, to keep the LLE from dragging. pt exicuted a step up and over curb height step with pt education on correct sequencing to ambulate stairs and what foot to lead with when ascending and descending. Assessment Current Status: Good Progress PT Skilled Nursing Goals Skilled Nursing Goals PT Legal Word Processor Goals Time Frame: July 20, 2022 Roll Left & Right (QC): 6 Sit to Lying (QC): 6 Lying-Sitting on Side/Bed(QC): 6 Sit to Stand (QC): 5 Chair/Kfu-yk-Xfotj Xfer(QC): 5 (with FWW) Toilet Transfer (QC): 5 (with grab bar or FWW) Car Transfer (QC): 5 (with FWW) Does the Patient Walk: Yes Walk 10 feet (QC): 4 (CGA with FWW and (L) AFO) Walk 50ft with 2 Turns (QC): 4 (CGA with FWW and (L) AFO) Walk 150 ft (QC): 4 (CGA with FWW and AFO) Walking 10ft on Uneven Surface: 4 (CGA with FWW and (L) AFO) 1 Step (curb) (QC): 4 (with FWW) 4 Steps (QC): 3 (min (A) with rails) 12 Steps (QC): 9 Picking up an Object (QC): 5 (with FWW and gas welder) Does the Pt use WC or Scooter?: Yes Wheel 50 feet with 2 turns (QC: 6 Type: Manual Wheel 150 feet: 6 Type: Manual PT Plan Treatment/Plan Treatment Plan: Continue Plan of Care Treatment Plan: Bed Mobility, Education, Functional Activity [place], Functional Strength, Group Therapy, Gait, Safety, Therapeutic Exercise, Transfers Treatment Duration: July 20, 2022 Frequency: At least 5 of 7 days/Wk (IRF) Estimated Hrs Per Day: 1.5 hours per day Patient and/or Family Agrees t: Yes Time Time In: 0800 Time Out: 0845 DATE: July 08, 2022 Total Billed Treatment Time: 45 Total Billed Treatment 1 GT x 2 EX Patricia Story BRICK GRADER July 08, 2022 12:54
--- NOTE | 2022-07-08 13:04 | Physical Therapy Daily Note ---
PT Daily Note-Current Subjective pt sitting EOB upon arrival and willing for therapy this day. pt was donning left show with AFO and was getting frustrated with shoe as shoe laces where too tight. pt needed a breather to relax and was able to finish task after.pt stated he has right lateral thigh pain that was 8/10 when ambulating this afternoon. N hemanting is aware of pain level. Pain Section J - Health Conditions 1. Rarely or not at all 2. Occasionally 3. Frequently 4. Almost constantly 8. Unable to answer Pain Effect on Sleep: 1 Pain Interference with Therapy: 1 Pain Interference w/Day-to-Day: 1 Mental Status Patient Orientation: Person, Place, Time, Situation Transfers SCALE: Activities may be completed with or without assistive devices. 0-Cwsxfzqelf-mymgkjf completes the activity by him/herself with no assistance from a helper. 5-Set-up or Clean-up Assistance-helper sets up or cleans up; patient completes activity. [place] assists only prior to or following the activity. 4-Supervision or Touching Assistance-helper provides verbal cues and/or touching/steadying and/or contact guard assistance as patient completes activity. Assistance may be provided throughout the activity or intermittently. 3-Partial/Moderate Assistance-helper does LESS THAN HALF the effort. [place] lifts, holds or supports trunk or limbs, but provides less than half the effort. 2-Substantial/Maximal Assistance-helper does MORE THAN HALF the effort. [place] lifts or holds trunk or limbs and provides more than half the effort. 6-Xofjaceby-qlenor does ALL the effort. Patient does none of the effort to complete the activity. Or, the assistance of 2 or more helpers is required for the patient to complete the activity. If activity was not attempted, code reason: 7-Patient Refused. 9-Not Applicable-not attempted and the patient did not perform the activity before the current illness, exacerbation or injury. 10-Not Attempted due to Environmental Limitations-(lack of equipment, weather restraints, etc.). 88-Not Attempted due to Medical Conditions or Safety Concerns. Weight Bearing Full Weight Bearing Weight Bearing/Tolerated Foot drop (L) Treatments pt was able to sit EOB with dynamic balance and had no LOB this day. Pt is able to ambulate 30 ft with table in commons area with SBA and back to room this day with no falls. pt preformed toilet transfer with SBA and no LOB this day but did requires VC for correct AD placement when pivoting from toilet to prevent falls. pt was left at table in commons area with nursing staff observing him with all needs met. Assessment Current Status: Good Progress PT Stage Driver Goals Stage Driver Goals PT Long-Term Goals Time Frame: July 20, 2022 Roll Left & Right (QC): 6 Sit to Lying (QC): 6 Lying-Sitting on Side/Bed(QC): 6 Sit to Stand (QC): 5 Chair/Oud-vp-Dkjqg Xfer(QC): 5 (with FWW) Toilet Transfer (QC): 5 (with grab bar or FWW) Car Transfer (QC): 5 (with FWW) Does the Patient Walk: Yes Walk 10 feet (QC): 4 (CGA with FWW and (L) AFO) Walk 50ft with 2 Turns (QC): 4 (CGA with FWW and (L) AFO) Walk 150 ft (QC): 4 (CGA with FWW and AFO) Walking 10ft on Uneven Surface: 4 (CGA with FWW and (L) AFO) 1 Step (curb) (QC): 4 (with FWW) 4 Steps (QC): 3 (min (A) with rails) 12 Steps (QC): 9 Picking up an Object (QC): 5 (with FWW and television news reporter) Does the Pt use WC or Scooter?: Yes Wheel 50 feet with 2 turns (QC: 6 Type: Manual Wheel 150 feet: 6 Type: Manual PT Plan Treatment/Plan Treatment Plan: Continue Plan of Care Treatment Plan: Bed Mobility, Education, Functional Activity [place], Functional Strength, Group Therapy, Gait, Safety, Therapeutic Exercise, Transfers Treatment Duration: July 20, 2022 Frequency: At least 5 of 7 days/Wk (IRF) Estimated Hrs Per Day: 1.5 hours per day Patient and/or Family Agrees t: Yes Time Time In: 1145 Time Out: 1230 DATE: July 08, 2022 Total Billed Treatment Time: 45 Total Billed Treatment 1 FA x 2 GT Patricia Story EQUIPMENT OPERATOR/LABORER July 08, 2022 13:04
[2022-07-08] MEDS ORDERED: CABO6SUS IM (15:15)
[2022-07-08] MEDS ORDERED: [UNRECOGNIZED DRUG - CODE] PO (15:15)
[2022-07-08] MEDS: LIDOCAINE 4% (SALONPAS) PATCH TP PRN (19:57)
[2022-07-08 20:01] VITALS: BP 137/67
[2022-07-08] MEDS: TEMAZEPAM 15 MG (RESTORIL) CAP PO SCH (21:01)
[2022-07-08] MEDS: DIPHENHYDRAMINE 25 MG PO PRN (21:02)
--- NOTE | 2022-07-09 05:30 | PM&R Progress Note ---
Subjective HPI/CC On Admission Date Seen by Provider: July 09, 2022 Time Seen by Provider: 12:00 Subjective/Events-last exam 07/09/2022: Doing well Slept better No pain reported No falls 07/08/2022: Doing well No pain Impulsive Confusion and agitation at night occurs 07/07/2022: Doing well Hallucinations every evening No new issues 07/06/2022: No major issues Remains impulsive Evening time he becomes agitated and requires antipsychotics and ativan Labs reviewed and liver improved 07/05/2022: Patient was agitated last evening requiring IM Ativan Improved overall Impulsive and a major fall risk 07/04/2022: Doing well LFT's elevated unsure of chronicity Patient improved overall No falls BM regimen maintained Review of Systems General: Fatigue, Malaise Objective Exam Vital Signs Vital Signs Date Time Temp Pulse Resp B/P (MAP) Pulse Ox O2 Delivery O2 Flow Rate FiO2 07/09/22 20:44 Room Air 07/09/22 20:37 36.4 97 18 118/70 (86) 96 Capillary Refill : General Appearance: No Apparent Distress, WD/WN, Thin HEENT: PERRL/EOMI, Normal ENT Inspection, Pharynx Normal Neck: Full Range of Motion, Normal Inspection, Non Tender, Supple, Carotid Br uit Respiratory: Chest Non Tender, Lungs Clear, Normal Breath Sounds, No Accessory Muscle Use, No Respiratory Distress Cardiovascular: Regular Rate, Rhythm, No Edema, No Gallop, No JVD, No Murmur, Normal Peripheral Pulses Gastrointestinal: Normal Bowel Sounds, No Organomegaly, No Pulsatile Mass, Non Tender, Soft Back: Normal Inspection, No CVA Tenderness, No Vertebral Tenderness Extremity: Normal Capillary Refill, Normal Inspection, Normal Range of Motion, Non Tender, No Calf Tenderness, No Pedal Edema Neurologic/Psychiatric: Alert, Oriented x3, hospital cleaning specialist II-XII Norm as Tested, Abnormal Gait, Aphasia, Depressed Affect, Motor Weakness Skin: Normal Color, Warm/Dry Lymphatic: No Adenopathy Results/Procedures Lab Patient resulted labs reviewed. FIM Transfers Therapy Code Descriptions/Definitions Functional [place] Measure: 0=Not Assessed/NA 4=Minimal Assistance 1=Total Assistance 5=Supervision or Setup 2=Maximal Assistance 6=Modified [place] 3=Moderate Assistance 7=Complete IndependenceSCALE: Activities may be completed with or without assistive devices. 8-Esprwgqzes-jdlkoir completes the activity by him/herself with no assistance from a helper. 5-Set-up or Clean-up Assistance-helper sets up or cleans up; patient completes activity. [place] assists only prior to or following the activity. 4-Supervision or Touching Assistance-helper provides verbal cues and/or touching/steadying and/or contact guard assistance as patient completes activity. Assistance may be provided throughout the activity or intermittently. 3-Partial/Moderate Assistance-helper does LESS THAN HALF the effort. [place] lifts, holds or supports trunk or limbs, but provides less than half the effort. 2-Substantial/Maximal Assistance-helper does MORE THAN HALF the effort. [place] lifts or holds trunk or limbs and provides more than half the effort. 9-Xwyefswho-onspzo does ALL the effort. Patient does none of the effort to complete the activity. Or, the assistance of 2 or more helpers is required for the patient to complete the activity. If activity was not attempted, code reason: 7-Patient Refused. 9-Not Applicable-not attempted and the patient did not perform the activity before the current illness, exacerbation or injury. 10-Not Attempted due to Environmental Limitations-(lack of equipment, weather restraints, etc.). 88-Not Attempted due to Medical Conditions or Safety Concerns. Roll Left to Right (QC): 6 Sit to Lying (QC): 6 Sit to Stand (QC): 4 Chair/Xvq-ve-Alfmx Xfer(QC): 1 (Stand pivots: min-mod (A) of 2 with FWW with cues for walker management, safety with turn and hand placement. Swing pivot min (A)-mod (A) of 1 with cues.) Car Transfer (QC): 1 (mod (A) of 2 for safety/LOB) Gait Training Does the Patient Walk?: Yes Distance: 300, 50 Walk 10 feet (QC): 4 Walk 50 ft with 2 Turns(QC): 4 Walk 150 ft (QC): 4 Walking 10ft/uneven surface-QC: 1 (Mod (A) of 2 with assist with walker propulsion - LOB when attempting to advance (L) LE.) Gait Persons Needed: 1 Gait Assistive Device: FWW Wheelchair Training Does the Pt Use a Wheelchair?: Yes Distance: 50' Wheel 50 ft with 2 turns (QC): 4 Wheel 150 ft (QC): 4 Type of Wheelchair: Manual Stair Training 1 Step (curb) (QC): 1 (2" curb with FWW mod (A) of 2) 4 Steps (QC): 88 12 Steps (QC): 88 Balance Picking up an Object (QC): 3 (Min (A) of 1-2 with FWW and transportation planning technician with LOB to ( L) after object was lifted off floor with transportation planning technician in (R) UE.) ADL-Treatment Eating (QC): 6 Oral Hygiene (QC): 6 Shower/Bathe Self (QC): 6 Upper Body Dressing (QC): 6 Lower Body Dressing (QC): 4 On/Off Footwear (QC): 6 Toileting Hygiene (QC): 4 Toilet Transfer (QC): 4 Assessment/Plan Assessment and Plan Assess & Plan/Chief Complaint Assessment: 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
[2022-07-09 07:43] VITALS: BP 129/89
[2022-07-09] MEDS: APIXABAN 5 MG (ELIQUIS) TABLET PO SCH ×2 (08:02→21:00)
[2022-07-09] MEDS: ASPIRIN 81 MG CHEW (CHILDREN'S ASA) PO SCH (08:02)
[2022-07-09] MEDS: OLANZapine 2.5 MG (ZyPREXA) TAB PO SCH ×2 (08:02→21:00)
[2022-07-09] MEDS: PANTOPRAZOLE 40 MG (PROTONIX) TAB PO SCH (08:02)
[2022-07-09] MEDS: FLUoxetine HCL 10 MG (PROzac) CAPSULE/TABLET PO SCH (08:02)
[2022-07-09] MEDS: DICLOFENAC 1% GEL 100 GM (VOLTAREN) TUBE TOP SCH ×4 (08:04→21:01)
[2022-07-09] MEDS: SENNA W/DOCUSATE (SENOKOT S) TABLET PO SCH ×2 (08:05→21:42)
[2022-07-09] MEDS: polyethylene glycoL POWDER 17 GM (MIRALAX) PACK PO SCH ×2 (08:05→21:42)
[2022-07-09] MEDS: DOCUSATE SODIUM 100 MG (COLACE) CAP PO SCH ×2 (08:05→21:42)
--- NOTE | 2022-07-09 11:27 | Occupational Ther Daily Note ---
OT Current Status-Daily Note Subjective Pt alert, lying in bed. Pt agrees to therapy. Pt c/o pain in calf, massage to alleviate pain. Mental Status/Objective Patient Orientation: Person, Place, Time, Situation ADL-Treatment Pt agrees to shower at end of session. Supervision for toileting and toilet transfer using grabbars and FWW. Independent with shower sitting 100% of the time using grabbars and hand held shower. Nrsg finished up pt's dressing due to therapy time constraints. Pt independent with eating and oral care in sitting. After session, pt left in care of nrsg. All needs met. Therapy Code Descriptions/Definitions Functional [place] Measure: 0=Not Assessed/NA 4=Minimal Assistance 1=Total Assistance 5=Supervision or Setup 2=Maximal Assistance 6=Modified [place] 3=Moderate Assistance 7=Complete IndependenceSCALE: Activities may be completed with or without assistive devices. 7-Ahjctmkzfr-zjvxpew completes the activity by him/herself with no assistance from a helper. 5-Set-up or Clean-up Assistance-helper sets up or cleans up; patient completes activity. [place] assists only prior to or following the activity. 4-Supervision or Touching Assistance-helper provides verbal cues and/or touching/steadying and/or contact guard assistance as patient completes activity. Assistance may be provided throughout the activity or intermittently. 3-Partial/Moderate Assistance-helper does LESS THAN HALF the effort. [place] lifts, holds or supports trunk or limbs, but provides less than half the effort. 2-Substantial/Maximal Assistance-helper does MORE THAN HALF the effort. [place] lifts or holds trunk or limbs and provides more than half the effort. 4-Cshhibqqc-rmdalg does ALL the effort. Patient does none of the effort to complete the activity. Or, the assistance of 2 or more helpers is required for the patient to complete the activity. If activity was not attempted, code reason: 7-Patient Refused. 9-Not Applicable-not attempted and the patient did not perform the activity before the current illness, exacerbation or injury. 10-Not Attempted due to Environmental Limitations-(lack of equipment, weather restraints, etc.). 88-Not Attempted due to Medical Conditions or Safety Concerns. Eating (QC): 6 Oral Hygiene (QC): 6 Shower/Bathe Self (QC): 6 Toileting Hygiene (QC): 4 Toilet Transfer (QC): 4 Other Treatment Pt completed B UE exercises in supine and sitting to increase strength and stamina for daily functional tasks. Skilled instruction required for correct technique and positioning. 5# hand wts completed for shldr, tricep and bicep strengthening 2 sets 15 reps. Standing push ups on back of chair 10 reps. Dowel cam exercises with 3# wt attached for shldr elevation, 1 set 10 reps. Pt able to ambulate around ARU using FWW with CGA to min A. OT Short Term Goals Short Term Goals Time Frame: July 15, 2022 Upper body dressin Lower body dressin Putting on/taking off footwear: 5 OT Fdc Goals Fdc Goals Time Frame: July 24, 2022 Acute change in mental status: 0 Inattention: 0 Disorganized thinkin Altered level of consciousness: 0 Eating (QC): 6 Oral Hygiene (QC): 6 Toileting Hygiene (QC): 6 Shower/Bathe Self (QC): 6 Upper Body Dressing (QC): 6 Lower Body Dressing (QC): 6 On/Off Footwear (QC): 6 Additional Goals: 1-Demonstrate ADL Tasks, 2-Verbalize Understanding, 3- ImproveStrength/[place] 1=Demonstrate adherence to instructed precautions during ADL tasks. 2=Patient will verbalize/demonstrate understanding of assistive devices/modifications for ADL. 3=Patient will improve strength/tolerance for activity to enable patient to perform ADL's. OT Education/Plan Problem List/Assessment Assessment: Decreased Safety Aware, Decreased UE Strength, Impaired Funct Balance, Impaired Self-Care Skills Discharge Recommendations Plan/Recommendations: Continue POC Treatment Plan/Plan of Care Patient would benefit from OT for education, treatment and training to promote independence in ADL's, mobility, safety and/or upper extremity function for ADL's. Plan of Care: ADL Retraining, Functional Mobility, Group Exercise/Act as Ind, UE Funct Exercise/Act, UE Neuromus Re-Ed/Coord Treatment Duration: July 24, 2022 Frequency: At least 5 of 7 days/Wk (IRF) Estimated Hrs Per Day: 1.5 hours per day Agreement: Yes Rehab Potential: Fair Time Start Time: 08:00 Stop Time: 09:30 DATE: July 09, 2022 Total Time Billed (hr/min): 90 Billed Treatment Time 1 visit-ADL 2 (30 min) FA 2 (30 min) EX 2 (30 min) EDWIN HAUSER July 09, 2022 11:27
[2022-07-09] MEDS: ALPRAZolam 0.25 MG (XANAX) TAB PO PRN ×2 (11:47→19:38)
--- NOTE | 2022-07-09 13:34 | Physical Therapy Daily Note ---
PT Daily Note-Current Subjective pt in hallway upon arrival near room. pt good for therapy. pt stated his left calf was very painful but did not give a rating. after stretching calf pt mentioned it did feel better. pt stated he was very tired after therapy an just wanted to lay down and take a nap. Pain Section J - Health Conditions 1. Rarely or not at all 2. Occasionally 3. Frequently 4. Almost constantly 8. Unable to answer Pain Effect on Sleep: 1 Pain Interference with Therapy: 1 Pain Interference w/Day-to-Day: 1 Transfers SCALE: Activities may be completed with or without assistive devices. 0-Zvozgvbtvv-xjavpdz completes the activity by him/herself with no assistance from a helper. 5-Set-up or Clean-up Assistance-helper sets up or cleans up; patient completes activity. [place] assists only prior to or following the activity. 4-Supervision or Touching Assistance-helper provides verbal cues and/or touching/steadying and/or contact guard assistance as patient completes activit y. Assistance may be provided throughout the activity or intermittently. 3-Partial/Moderate Assistance-helper does LESS THAN HALF the effort. [place] lifts, holds or supports trunk or limbs, but provides less than half the effort. 2-Substantial/Maximal Assistance-helper does MORE THAN HALF the effort. [place] lifts or holds trunk or limbs and provides more than half the effort. 5-Znuqbarbt-oviiqk does ALL the effort. Patient does none of the effort to complete the activity. Or, the assistance of 2 or more helpers is required for the patient to complete the activity. If activity was not attempted, code reason: 7-Patient Refused. 9-Not Applicable-not attempted and the patient did not perform the activity before the current illness, exacerbation or injury. 10-Not Attempted due to Environmental Limitations-(lack of equipment, weather restraints, etc.). 88-Not Attempted due to Medical Conditions or Safety Concerns. Roll Left & Right (QC): 6 Sit to Lying (QC): 6 Lying to Sitting/Side of Bed(Q: 6 Sit to Stand (QC): 5 Chair/Xor-ct-Jumun Xfer(QC): 4 Toilet Transfer (QC): 4 Car Transfer (QC): 4 Weight Bearing Full Weight Bearing Weight Bearing/Tolerated Foot drop (L) Wheelchair Training Wheel 50 ft with 2 turns (QC): 6 Wheel 150 ft (QC): 6 Stair Training #of Steps: 4 1 Step (curb) (QC): 4 4 Steps (QC): 4 Treatments pt was able to ambulate 60ft incline and 60ft decline with WC follow behind with CGA and VC for Left foot placement to prevent from falls. pt did require rest in between secondary to fatigue. pt executed stairs in therapy gym 4 ascend and 4 descend while holding onto both railing and CGA from therapist. VC of 25% for correct way to ambulate stairs. pt able to understand and would repeat "up with the good down with the bad" with every stair. stretching of the left calf mm was implemented with pt stating it was sore and tight. pt executed car transfer with SBA and education on correct sequencing for safety. pt was left in bed with call light and all needs met this day. Assessment Current Status: Excellent Progress PT Advanced Manufacturing Vice President Goals Care Home Goals PT Advanced Manufacturing Vice President Goals Time Frame: July 20, 2022 Roll Left & Right (QC): 6 Sit to Lying (QC): 6 Lying-Sitting on Side/Bed(QC): 6 Sit to Stand (QC): 5 Chair/Eeu-wi-Sttmo Xfer(QC): 5 (with FWW) Toilet Transfer (QC): 5 (with grab bar or FWW) Car Transfer (QC): 5 (with FWW) Does the Patient Walk: Yes Walk 10 feet (QC): 4 (CGA with FWW and (L) AFO) Walk 50ft with 2 Turns (QC): 4 (CGA with FWW and (L) AFO) Walk 150 ft (QC): 4 (CGA with FWW and AFO) Walking 10ft on Uneven Surface: 4 (CGA with FWW and (L) AFO) 1 Step (curb) (QC): 4 (with FWW) 4 Steps (QC): 3 (min (A) with rails) 12 Steps (QC): 9 Picking up an Object (QC): 5 (with FWW and lockstitch shoulder joiner) Does the Pt use WC or Scooter?: Yes Wheel 50 feet with 2 turns (QC: 6 Type: Manual Wheel 150 feet: 6 Type: Manual PT Plan Treatment/Plan Treatment Plan: Continue Plan of Care Treatment Plan: Bed Mobility, Education, Functional Activity [place], Functional Strength, Group Therapy, Gait, Safety, Therapeutic Exercise, Transfers Treatment Duration: July 20, 2022 Frequency: At least 5 of 7 days/Wk (IRF) Estimated Hrs Per Day: 1.5 hours per day Patient and/or Family Agrees t: Yes Time Time In: 1030 Time Out: 1200 DATE: July 09, 2022 Total Billed Treatment Time: 90 Total Billed Treatment 1 GT x 3 FA x 3 Patricia Story LACING CUTTER July 09, 2022 13:34
[2022-07-09] MEDS: ACETAMINOPHEN 325 MG TABLET PO PRN (17:18)
[2022-07-09 20:37] VITALS: BP 118/70
[2022-07-09] MEDS: DIPHENHYDRAMINE 25 MG PO PRN (21:00)
[2022-07-09] MEDS: TEMAZEPAM 15 MG (RESTORIL) CAP PO SCH (21:00)
[2022-07-10] MEDS: ACETAMINOPHEN 325 MG TABLET PO PRN ×2 (00:25→17:08)
--- NOTE | 2022-07-10 06:04 | PM&R Progress Note ---
Subjective HPI/CC On Admission Date Seen by Provider: July 10, 2022 Time Seen by Provider: 12:00 Subjective/Events-last exam 07/10/2022: No major issues Improved sleep at night Less agitation and confusion No falls 07/09/2022: Doing well Slept better No pain reported No falls 07/08/2022: Doing well No pain Impulsive Confusion and agitation at night occurs 07/07/2022: Doing well Hallucinations every evening No new issues 07/06/2022: No major issues Remains impulsive Evening time he becomes agitated and requires antipsychotics and ativan Labs reviewed and liver improved 07/05/2022: Patient was agitated last evening requiring IM Ativan Improved overall Impulsive and a major fall risk 07/04/2022: Doing well LFT's elevated unsure of chronicity Patient improved overall No falls BM regimen maintained Review of Systems General: Fatigue, Malaise Objective Exam Vital Signs Vital Signs Date Time Temp Pulse Resp B/P (MAP) Pulse Ox O2 Delivery O2 Flow Rate FiO2 07/10/22 08:54 Room Air 07/10/22 08:00 36.8 96 16 128/67 (87) 96 Capillary Refill : General Appearance: No Apparent Distress, WD/WN, Thin HEENT: PERRL/EOMI, Normal ENT Inspection, Pharynx Normal Neck: Full Range of Motion, Normal Inspection, Non Tender, Supple, Carotid Bruit Respiratory: Chest Non Tender, Lungs Clear, Normal Breath Sounds, No Accessory Muscle Use, No Respiratory Distress Cardiovascular: Regular Rate, Rhythm, No Edema, No Gallop, No JVD, No Murmur, Normal Peripheral Pulses Gastrointestinal: Normal Bowel Sounds, No Organomegaly, No Pulsatile Mass, Non Tender, Soft Back: Normal Inspection, No CVA Tenderness, No Vertebral Tenderness Extremity: Normal Capillary Refill, Normal Inspection, Normal Range of Motion, Non Tender, No Calf Tenderness, No Pedal Edema Neurologic/Psychiatric: Alert, Oriented x3, silk screen cutter II-XII Norm as Tested, Abnormal Gait, Aphasia, Depressed Affect, Motor Weakness Skin: Normal Color, Warm/Dry Lymphatic: No Adenopathy Results/Procedures Lab Patient resulted labs reviewed. FIM Transfers Therapy Code Descriptions/Definitions Functional [place] Measure: 0=Not Assessed/NA 4=Minimal Assistance 1=Total Assistance 5=Supervision or Setup 2=Maximal Assistance 6=Modified [place] 3=Moderate Assistance 7=Complete IndependenceSCALE: Activities may be completed with or without assistive devices. 2-Agqvtrxaqc-yptpshu completes the activity by him/herself with no assistance from a helper. 5-Set-up or Clean-up Assistance-helper sets up or cleans up; patient completes activity. [place] assists only prior to or following the activity. 4-Supervision or Touching Assistance-helper provides verbal cues and/or touching/steadying and/or contact guard assistance as patient completes activity. Assistance may be provided throughout the activity or intermittently. 3-Partial/Moderate Assistance-helper does LESS THAN HALF the effort. [place] lifts, holds or supports trunk or limbs, but provides less than half the effort. 2-Substantial/Maximal Assistance-helper does MORE THAN HALF the effort. [place] lifts or holds trunk or limbs and provides more than half the effort. 4-Vvbusdasf-vlcqmj does ALL the effort. Patient does none of the effort to complete the activity. Or, the assistance of 2 or more helpers is required for the patient to complete the activity. If activity was not attempted, code reason: 7-Patient Refused. 9-Not Applicable-not attempted and the patient did not perform the activity before the current illness, exacerbation or injury. 10-Not Attempted due to Environmental Limitations-(lack of equipment, weather restraints, etc.). 88-Not Attempted due to Medical Conditions or Safety Concerns. Roll Left to Right (QC): 6 Sit to Lying (QC): 6 Sit to Stand (QC): 5 Chair/Axm-uv-Nbivw Xfer(QC): 4 Car Transfer (QC): 4 Gait Training Does the Patient Walk?: Yes Distance: 300, 50 Walk 10 feet (QC): 4 Walk 50 ft with 2 Turns(QC): 4 Walk 150 ft (QC): 4 Walking 10ft/uneven surface-QC: 1 (Mod (A) of 2 with assist with walker propulsion - LOB when attempting to advance (L) LE.) Gait Persons Needed: 1 Gait Assistive Device: FWW Wheelchair Training Does the Pt Use a Wheelchair?: Yes Distance: 50' Wheel 50 ft with 2 turns (QC): 6 Wheel 150 ft (QC): 6 Type of Wheelchair: Manual Stair Training #of Steps: 4 1 Step (curb) (QC): 4 4 Steps (QC): 4 12 Steps (QC): 88 Balance Picking up an Object (QC): 3 (Min (A) of 1-2 with FWW and workforce staffing advisor with LOB to (L) after object was lifted off floor with workforce staffing advisor in (R) UE.) ADL-Treatment Eating (QC): 6 Oral Hygiene (QC): 6 Shower/Bathe Self (QC): 6 Upper Body Dressing (QC): 6 Lower Body Dressing (QC): 4 On/Off Footwear (QC): 6 Toileting Hygiene (QC): 4 Toilet Transfer (QC): 4 Assessment/Plan Assessment and Plan Assess & Plan/Chief Complaint Assessment: 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
[2022-07-10] MEDS: ALPRAZolam 0.25 MG (XANAX) TAB PO PRN ×2 (07:53→17:07)
[2022-07-10] MEDS: FLUoxetine HCL 10 MG (PROzac) CAPSULE/TABLET PO SCH (07:53)
[2022-07-10] MEDS: APIXABAN 5 MG (ELIQUIS) TABLET PO SCH ×2 (07:53→21:03)
[2022-07-10] MEDS: ASPIRIN 81 MG CHEW (CHILDREN'S ASA) PO SCH (07:53)
[2022-07-10] MEDS: OLANZapine 2.5 MG (ZyPREXA) TAB PO SCH ×2 (07:53→21:03)
[2022-07-10] MEDS: PANTOPRAZOLE 40 MG (PROTONIX) TAB PO SCH (07:53)
[2022-07-10] MEDS: DICLOFENAC 1% GEL 100 GM (VOLTAREN) TUBE TOP SCH ×4 (07:54→21:00)
[2022-07-10] MEDS: SENNA W/DOCUSATE (SENOKOT S) TABLET PO SCH ×2 (07:54→21:00)
[2022-07-10] MEDS: polyethylene glycoL POWDER 17 GM (MIRALAX) PACK PO SCH ×2 (07:54→21:00)
[2022-07-10] MEDS: DOCUSATE SODIUM 100 MG (COLACE) CAP PO SCH ×2 (07:54→21:00)
[2022-07-10 08:00] VITALS: BP 128/67
--- NOTE | 2022-07-10 12:45 | Physical Therapy Daily Note ---
PT Daily Note-Current Subjective pt was found in the therapy commons area eating his cake. pt then made a phone haresh to his boyfriend. pt needed max encouragement to preform therapy as he stated he was tired from the previous day before. pt preformed activity in therapy gym and correction through treatment stated he was tired. pt removed himself form the therapy gym and went to his room. pt waited until i got in there to put himself to bed and refused to do any more treatment until he had a nap. pt was in bed with call light and all needs met upon leaving the room. Pain Section J - Health Conditions 1. Rarely or not at all 2. Occasionally 3. Frequently 4. Almost constantly 8. Unable to answer Pain Effect on Sleep: 1 Pain Interference with Therapy: 1 Pain Interference w/Day-to-Day: 1 Transfers SCALE: Activities may be completed with or without assistive devices. 0-Xaoagcbhoq-nikpjaw completes the activity by him/herself with no assistance from a helper. 5-Set-up or Clean-up Assistance-helper sets up or cleans up; patient completes activity. [place] assists only prior to or following the activity. 4-Supervision or Touching Assistance-helper provides verbal cues and/or touching/steadying and/or contact guard assistance as patient completes activity. Assistance may be provided throughout the activity or intermittently. 3-Partial/Moderate Assistance-helper does LESS THAN HALF the effort. [place] lifts, holds or supports trunk or limbs, but provides less than half the effort. 2-Substantial/Maximal Assistance-helper does MORE THAN HALF the effort. [place] lifts or holds trunk or limbs and provides more than half the effort. 3-Yuodoyswh-ayxggg does ALL the effort. Patient does none of the effort to complete the activity. Or, the assistance of 2 or more helpers is required for the patient to complete the activity. If activity was not attempted, code reason: 7-Patient Refused. 9-Not Applicable-not attempted and the patient did not perform the activity before the current illness, exacerbation or injury. 10-Not Attempted due to Environmental Limitations-(lack of equipment, weather restraints, etc.). 88-Not Attempted due to Medical Conditions or Safety Concerns. Weight Bearing Full Weight Bearing Weight Bearing/Tolerated Foot drop (L) Exercises Standing: Stepping over objects NuStep Minutes: 15 NuStep Workload: 1 Treatments Pt preformed Nu-step for 15 with small rest breaks of 10-20 sec and pt resumes activity pt preformed stepping up onto a curb and down then over an object in // bars with CGA x 2. pt was not able to clear object when stepping over in the step thought pattern but was able to push said object to the right while maintaining balance in the h// bars with both bands and step onto the ground safety. . Assessment Current Status: Fair Progress PT Sales Support Specialist Goals Sales Support Specialist Goals PT Sales Support Specialist Goals Time Frame: July 20, 2022 Roll Left & Right (QC): 6 Sit to Lying (QC): 6 Lying-Sitting on Side/Bed(QC): 6 Sit to Stand (QC): 5 Chair/Lsg-qh-Kqazl Xfer(QC): 5 (with FWW) Toilet Transfer (QC): 5 (with grab bar or FWW) Car Transfer (QC): 5 (with FWW) Does the Patient Walk: Yes Walk 10 feet (QC): 4 (CGA with FWW and (L) AFO) Walk 50ft with 2 Turns (QC): 4 (CGA with FWW and (L) AFO) Walk 150 ft (QC): 4 (CGA with FWW and AFO) Walking 10ft on Uneven Surface: 4 (CGA with FWW and (L) AFO) 1 Step (curb) (QC): 4 (with FWW) 4 Steps (QC): 3 (min (A) with rails) 12 Steps (QC): 9 Picking up an Object (QC): 5 (with FWW and garde manger) Does the Pt use WC or Scooter?: Yes Wheel 50 feet with 2 turns (QC: 6 Type: Manual Wheel 150 feet: 6 Type: Manual PT Plan Treatment/Plan Treatment Plan: Continue Plan of Care Treatment Plan: Bed Mobility, Education, Functional Activity [place], Functional Strength, Group Therapy, Gait, Safety, Therapeutic Exercise, Transfers Treatment Duration: July 20, 2022 Frequency: At least 5 of 7 days/Wk (IRF) Estimated Hrs Per Day: 1.5 hours per day Patient and/or Family Agrees t: Yes Time Time In: 1030 Time Out: 1115 DATE: July 10, 2022 Total Billed Treatment Time: 45 Total Billed Treatment 1 ex x 2 fa Patricia Story MOBILE HOMES REPAIRER July 10, 2022 12:45
--- NOTE | 2022-07-10 13:07 | Occupational Ther Daily Note ---
OT Current Status-Daily Note Subjective Pt alert, lying in bed. Pt agrees to therapy. Pt c/o pain, does not rate. Massage to L calf to decrease pain and increase mobility. Mental Status/Objective Patient Orientation: Person, Place, Time, Situation ADL-Treatment Pt independent with shower sitting 100% of the time using grabbars, shower bench and hand held shower. Set up UBD. CGA for LBD. SBA for footwear. Independent with eating. Independent with oral care. Therapy Code Descriptions/Definitions Functional [place] Measure: 0=Not Assessed/NA 4=Minimal Assistance 1=Total Assistance 5=Supervision or Setup 2=Maximal Assistance 6=Modified [place] 3=Moderate Assistance 7=Complete IndependenceSCALE: Activities may be completed with or without assistive devices. 9-Ycxfgqxvtm-tmdxkru completes the activity by him/herself with no assistance from a helper. 5-Set-up or Clean-up Assistance-helper sets up or cleans up; patient completes activity. [place] assists only prior to or following the activity. 4-Supervision or Touching Assistance-helper provides verbal cues and/or touching/steadying and/or contact guard assistance as patient completes activity. Assistance may be provided throughout the activity or intermittently. 3-Partial/Moderate Assistance-helper does LESS THAN HALF the effort. [place] lifts, holds or supports trunk or limbs, but provides less than half the effort. 2-Substantial/Maximal Assistance-helper does MORE THAN HALF the effort. [place] lifts or holds trunk or limbs and provides more than half the effort. 2-Zyoohrwky-gonglw does ALL the effort. Patient does none of the effort to complete the activity. Or, the assistance of 2 or more helpers is required for the patient to complete the activity. If activity was not attempted, code reason: 7-Patient Refused. 9-Not Applicable-not attempted and the patient did not perform the activity before the current illness, exacerbation or injury. 10-Not Attempted due to Environmental Limitations-(lack of equipment, weather restraints, etc.). 88-Not Attempted due to Medical Conditions or Safety Concerns. Eating (QC): 6 Oral Hygiene (QC): 6 Shower/Bathe Self (QC): 6 Upper Body Dressing (QC): 5 Lower Body Dressing (QC): 4 On/Off Footwear: 4 Toileting Hygiene (QC): 4 Toilet Transfer (QC): 4 Other Treatment Pt completed B UE gross motor exercises to increase strength, coordination and stamina for daily functional tasks, 6 exercises 2 min each. Pt working on side stepping L/R with CGA, no LOB but moving slowly and pt focusing on placing L LE correctly. After session, pt left in care of PT. All needs met. OT Short Term Goals Short Term Goals Time Frame: July 15, 2022 Upper body dressin Lower body dressin Putting on/taking off footwear: 5 OT Custodial Goals Senior Policy Associate Goals Time Frame: July 24, 2022 Acute change in mental status: 0 Inattention: 0 Disorganized thinkin Altered level of consciousness: 0 Eating (QC): 6 Oral Hygiene (QC): 6 Toileting Hygiene (QC): 6 Shower/Bathe Self (QC): 6 Upper Body Dressing (QC): 6 Lower Body Dressing (QC): 6 On/Off Footwear (QC): 6 Additional Goals: 1-Demonstrate ADL Tasks, 2-Verbalize Understanding, 3- ImproveStrength/[place] 1=Demonstrate adherence to instructed precautions during ADL tasks. 2=Patient will verbalize/demonstrate understanding of assistive devices/modifications for ADL. 3=Patient will improve strength/tolerance for activity to enable patient to perform ADL's. OT Education/Plan Problem List/Assessment Assessment: Decreased Activ Tolerance, Decreased Safety Aware, Decreased UE Strength, Impaired Coordination, Impaired Self-Care Skills Discharge Recommendations Plan/Recommendations: Continue POC Treatment Plan/Plan of Care Patient would benefit from OT for education, treatment and training to promote independence in ADL's, mobility, safety and/or upper extremity function for ADL's. Plan of Care: ADL Retraining, Functional Mobility, Group Exercise/Act as Ind, UE Funct Exercise/Act, UE Neuromus Re-Ed/Coord Treatment Duration: July 24, 2022 Frequency: At least 5 of 7 days/Wk (IRF) Estimated Hrs Per Day: 1.5 hours per day Agreement: Yes Rehab Potential: Fair Time Start Time: 09:00 Stop Time: 10:30 DATE: July 10, 2022 Total Time Billed (hr/min): 90 Billed Treatment Time 1 visit-ADL 2 (30 min) EX 4 (60 min) EDWIN HAUSER July 10, 2022 13:07
--- NOTE | 2022-07-10 14:34 | Occupational Ther Daily Note ---
OT Current Status-Daily Note Subjective Pt alert, lying in bed. Pt agrees to therapy. No c/o pain. C/o fatigue. Mental Status/Objective Patient Orientation: Person, Place, Time, Situation Attachments: Other-See Comments (AFO) ADL-Treatment Pt propelled w/c into bathroom and positioned to transfer on/off toilet. SBA for transfer. Pt completes hygiene sitting on toilet and SBA to hike pants over hips. After session, pt lying in bed with call light/phone in reach. All needs met in room. Therapy Code Descriptions/Definitions Functional [place] Measure: 0=Not Assessed/NA 4=Minimal Assistance 1=Total Assistance 5=Supervision or Setup 2=Maximal Assistance 6=Modified [place] 3=Moderate Assistance 7=Complete IndependenceSCALE: Activities may be completed with or without assistive devices. 7-Ssefhrdjgx-vdyiyjc completes the activity by him/herself with no assistance from a helper. 5-Set-up or Clean-up Assistance-helper sets up or cleans up; patient completes activity. [place] assists only prior to or following the activity. 4-Supervision or Touching Assistance-helper provides verbal cues and/or touching/steadying and/or contact guard assistance as patient completes a ctivity. Assistance may be provided throughout the activity or intermittently. 3-Partial/Moderate Assistance-helper does LESS THAN HALF the effort. [place] lifts, holds or supports trunk or limbs, but provides less than half the effort. 2-Substantial/Maximal Assistance-helper does MORE THAN HALF the effort. [place] lifts or holds trunk or limbs and provides more than half the effort. 5-Wjmifbvfu-yawzkl does ALL the effort. Patient does none of the effort to complete the activity. Or, the assistance of 2 or more helpers is required for the patient to complete the activity. If activity was not attempted, code reason: 7-Patient Refused. 9-Not Applicable-not attempted and the patient did not perform the activity before the current illness, exacerbation or injury. 10-Not Attempted due to Environmental Limitations-(lack of equipment, weather restraints, etc.). 88-Not Attempted due to Medical Conditions or Safety Concerns. Other Treatment Pt completed L UE fine motor tasks to work on client technologies specialist/pinch strength and finger dexterity. Pt had some difficulty with palmar/finger translation though able to complete with minimal droppage. Resistive pegs completed, 30 pegs with L hand. After therapy, pt lying in bed with call light/phone in reach. All needs met in room. OT Short Term Goals Short Term Goals Time Frame: July 15, 2022 Upper body dressin Lower body dressin Putting on/taking off footwear: 5 OT Half-Way Goals Seismograph Helper Goals Time Frame: July 24, 2022 Acute change in mental status: 0 Inattention: 0 Disorganized thinkin Altered level of consciousness: 0 Eating (QC): 6 Oral Hygiene (QC): 6 Toileting Hygiene (QC): 6 Shower/Bathe Self (QC): 6 Upper Body Dressing (QC): 6 Lower Body Dressing (QC): 6 On/Off Footwear (QC): 6 Additional Goals: 1-Demonstrate ADL Tasks, 2-Verbalize Understanding, 3- ImproveStrength/[place] 1=Demonstrate adherence to instructed precautions during ADL tasks. 2=Patient will verbalize/demonstrate understanding of assistive de vices/modifications for ADL. 3=Patient will improve strength/tolerance for activity to enable patient to perform ADL's. OT Education/Plan Problem List/Assessment Assessment: Decreased Activ Tolerance, Decreased UE Strength, Impaired Self- Care Skills Discharge Recommendations Plan/Recommendations: Continue POC Treatment Plan/Plan of Care Patient would benefit from OT for education, treatment and training to promote independence in ADL's, mobility, safety and/or upper extremity function for ADL's. Plan of Care: ADL Retraining, Functional Mobility, Group Exercise/Act as Ind, UE Funct Exercise/Act, UE Neuromus Re-Ed/Coord Treatment Duration: July 24, 2022 Frequency: At least 5 of 7 days/Wk (IRF) Estimated Hrs Per Day: 1.5 hours per day Agreement: Yes Rehab Potential: Fair Time Start Time: 13:00 Stop Time: 13:45 DATE: July 10, 2022 Total Time Billed (hr/min): 45 Billed Treatment Time 1 visit-EX 3 (45 min) EDWIN HAUSER July 10, 2022 14:34
[2022-07-10 20:15] VITALS: BP 125/69
[2022-07-10] MEDS: DIPHENHYDRAMINE 25 MG PO PRN (21:02)
[2022-07-10] MEDS: TEMAZEPAM 15 MG (RESTORIL) CAP PO SCH (21:03)
--- NOTE | 2022-07-11 06:07 | PM&R Progress Note ---
Subjective HPI/CC On Admission Date Seen by Provider: July 11, 2022 Time Seen by Provider: 09:30 Subjective/Events-last exam 07/11/2022: No major issues No falls No pain 07/10/2022: No major issues Improved sleep at night Less agitation and confusion No falls 07/09/2022: Doing well Slept better No pain reported No falls 07/08/2022: Doing well No pain Impulsive Confusion and agitation at night occurs 07/07/2022: Doing well Hallucinations every evening No new issues 07/06/2022: No major issues Remains impulsive Evening time he becomes agitated and requires antipsychotics and ativan Labs reviewed and liver improved 07/05/2022: Patient was agitated last evening requiring IM Ativan Improved overall Impulsive and a major fall risk 07/04/2022: Doing well LFT's elevated unsure of chronicity Patient improved overall No falls BM regimen maintained Review of Systems General: Fatigue, Malaise Objective Exam Vital Signs Vital Signs Date Time Temp Pulse Resp B/P (MAP) Pulse Ox O2 Delivery O2 Flow Rate FiO2 07/11/22 08:48 Room Air 07/11/22 08:42 36.5 109 16 134/71 (92) 98 Capillary Refill : General Appearance: No Apparent Distress, WD/WN, Thin HEENT: PERRL/EOMI, Normal ENT Inspection, Pharynx Normal Neck: Full Range of Motion, Normal Inspection, Non Tender, Supple, Carotid Bruit Respiratory: Chest Non Tender, Lungs Clear, Normal Breath Sounds, No Accessory Muscle Use, No Respiratory Distress Cardiovascular: Regular Rate, Rhythm, No Edema, No Gallop, No JVD, No Murmur, Normal Peripheral Pulses Gastrointestinal: Normal Bowel Sounds, No Organomegaly, No Pulsatile Mass, Non Tender, Soft Back: Normal Inspection, No CVA Tenderness, No Vertebral Tenderness Extremity: Normal Capillary Refill, Normal Inspection, Normal Range of Motion, Non Tender, No Calf Tenderness, No Pedal Edema Neurologic/Psychiatric: Alert, Oriented x3, flexible shaft winder II-XII Norm as Tested, Abnormal Gait, Aphasia, Depressed Affect, Motor Weakness Skin: Normal Color, Warm/Dry Lymphatic: No Adenopathy Results/Procedures Lab Patient resulted labs reviewed. FIM Transfers Therapy Code Descriptions/Definitions Functional [place] Measure: 0=Not Assessed/NA 4=Minimal Assistance 1=Total Assistance 5=Supervision or Setup 2=Maximal Assistance 6=Modified [place] 3=Moderate Assistance 7=Complete IndependenceSCALE: Activities may be completed with or without assistive devices. 7-Pkyrezvqpw-uhbibfo completes the activity by him/herself with no assistance from a helper. 5-Set-up or Clean-up Assistance-helper sets up or cleans up; patient completes activity. [place] assists only prior to or following the activity. 4-Supervision or Touching Assistance-helper provides verbal cues and/or touching/steadying and/or contact guard assistance as patient completes activity. Assistance may be provided throughout the activity or intermittently. 3-Partial/Moderate Assistance-helper does LESS THAN HALF the effort. [place] lifts, holds or supports trunk or limbs, but provides less than half the effort. 2-Substantial/Maximal Assistance-helper does MORE THAN HALF the effort. [place] lifts or holds trunk or limbs and provides more than half the effort. 9-Nyqjuxtyx-lcwmok does ALL the effort. Patient does none of the effort to complete the activity. Or, the assistance of 2 or more helpers is required for the patient to complete the activity. If activity was not attempted, code reason: 7-Patient Refused. 9-Not Applicable-not attempted and the patient did not perform the activity before the current illness, exacerbation or injury. 10-Not Attempted due to Environmental Limitations-(lack of equipment, weather restraints, etc.). 88-Not Attempted due to Medical Conditions or Safety Concerns. Roll Left to Right (QC): 6 Sit to Lying (QC): 6 Sit to Stand (QC): 5 Chair/Rwi-sm-[place] Xfer(QC): 4 Car Transfer (QC): 4 Gait Training Does the Patient Walk?: Yes Distance: 300, 50 Walk 10 feet (QC): 4 Walk 50 ft with 2 Turns(QC): 4 Walk 150 ft (QC): 4 Walking 10ft/uneven surface-QC: 1 (Mod (A) of 2 with assist with walker pro pulsion - LOB when attempting to advance (L) LE.) Gait Persons Needed: 1 Gait Assistive Device: FWW Wheelchair Training Does the Pt Use a Wheelchair?: Yes Distance: 50' Wheel 50 ft with 2 turns (QC): 6 Wheel 150 ft (QC): 6 Type of Wheelchair: Manual Stair Training #of Steps: 4 1 Step (curb) (QC): 4 4 Steps (QC): 4 12 Steps (QC): 88 Balance Picking up an Object (QC): 3 (Min (A) of 1-2 with FWW and medical record retrieval specialist with LOB to (L) after object was lifted off floor with medical record retrieval specialist in (R) UE.) ADL-Treatment Eating (QC): 6 Oral Hygiene (QC): 6 Shower/Bathe Self (QC): 6 Upper Body Dressing (QC): 5 Lower Body Dressing (QC): 4 On/Off Footwear (QC): 4 Toileting Hygiene (QC): 4 Toilet Transfer (QC): 4 Assessment/Plan Assessment and Plan Assess & Plan/Chief Complaint Assessment: 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
[2022-07-11] MEDS: ALPRAZolam 0.25 MG (XANAX) TAB PO PRN ×2 (08:21→17:26)
[2022-07-11] MEDS: APIXABAN 5 MG (ELIQUIS) TABLET PO SCH ×2 (08:21→21:08)
[2022-07-11] MEDS: FLUoxetine HCL 10 MG (PROzac) CAPSULE/TABLET PO SCH (08:21)
[2022-07-11] MEDS: PANTOPRAZOLE 40 MG (PROTONIX) TAB PO SCH (08:21)
[2022-07-11] MEDS: OLANZapine 2.5 MG (ZyPREXA) TAB PO SCH ×2 (08:21→21:08)
[2022-07-11] MEDS: ASPIRIN 81 MG CHEW (CHILDREN'S ASA) PO SCH (08:21)
[2022-07-11] MEDS: DOCUSATE SODIUM 100 MG (COLACE) CAP PO SCH ×2 (08:41→21:00)
[2022-07-11] MEDS: DICLOFENAC 1% GEL 100 GM (VOLTAREN) TUBE TOP SCH ×4 (08:41→21:00)
[2022-07-11] MEDS: SENNA W/DOCUSATE (SENOKOT S) TABLET PO SCH ×2 (08:41→21:00)
[2022-07-11] MEDS: polyethylene glycoL POWDER 17 GM (MIRALAX) PACK PO SCH ×2 (08:41→21:00)
[2022-07-11 08:42] VITALS: BP 134/71
[2022-07-11] MEDS: LIDOCAINE 4% (SALONPAS) PATCH TP PRN (11:13)
[2022-07-11] MEDS: ACETAMINOPHEN 325 MG TABLET PO PRN ×2 (11:13→17:26)
[2022-07-11] MEDS: IBUPROFEN TABLET 200 MG TAB PO PRN (19:44)
[2022-07-11 20:45] VITALS: BP 125/73
[2022-07-11] MEDS: TEMAZEPAM 15 MG (RESTORIL) CAP PO SCH (21:08)
[2022-07-11] MEDS: DIPHENHYDRAMINE 25 MG PO PRN (21:16)
[2022-07-12] MEDS: ACETAMINOPHEN 325 MG TABLET PO PRN (03:55)
[2022-07-12] MEDS: IBUPROFEN TABLET 200 MG TAB PO PRN ×3 (05:48→20:26)
--- NOTE | 2022-07-12 07:36 | PM&R Progress Note ---
Subjective HPI/CC On Admission Date Seen by Provider: July 12, 2022 Time Seen by Provider: 12:00 Subjective/Events-last exam 07/12/2022: No major issues Boyfriend at bedside No falls No pain 07/11/2022: No major issues No falls No pain 07/10/2022: No major issues Improved sleep at night Less agitation and confusion No falls 07/09/2022: Doing well Slept better No pain reported No falls 07/08/2022: Doing well No pain Impulsive Confusion and agitation at night occurs 07/07/2022: Doing well Hallucinations every evening No new issues 07/06/2022: No major issues Remains impulsive Evening time he becomes agitated and requires antipsychotics and ativan Labs reviewed and liver improved 07/05/2022: Patient was agitated last evening requiring IM Ativan Improved overall Impulsive and a major fall risk 07/04/2022: Doing well LFT's elevated unsure of chronicity Patient improved overall No falls BM regimen maintained Review of Systems General: Fatigue, Malaise Objective Exam Vital Signs Vital Signs Date Time Temp Pulse Resp B/P (MAP) Pulse Ox O2 Delivery O2 Flow Rate FiO2 07/12/22 09:20 Room Air 07/12/22 08:45 36.5 103 16 121/85 (97) 98 Capillary Refill : General Appearance: No Apparent Distress, WD/WN, Thin HEENT: PERRL/EOMI, Normal ENT Inspection, Pharynx Normal Neck: Full Range of Motion, Normal Inspection, Non Tender, Supple, Carotid Bruit Respiratory: Chest Non Tender, Lungs Clear, Normal Breath Sounds, No Accessory Muscle Use, No Respiratory Distress Cardiovascular: Regular Rate, Rhythm, No Edema, No Gallop, No JVD, No Murmur, Normal Peripheral Pulses Gastrointestinal: Normal Bowel Sounds, No Organomegaly, No Pulsatile Mass, Non Tender, Soft Back: Normal Inspection, No CVA Tenderness, No Vertebral Tenderness Extremity: Normal Capillary Refill, Normal Inspection, Normal Range of Motion, Non Tender, No Calf Tenderness, No Pedal Edema Neurologic/Psychiatric: Alert, Oriented x3, lithographic camera operator II-XII Norm as Tested, Abnormal Gait, Aphasia, Depressed Affect, Motor Weakness Skin: Normal Color, Warm/Dry Lymphatic: No Adenopathy Results/Procedures Lab Patient resulted labs reviewed. FIM Transfers Therapy Code Descriptions/Definitions Functional [place] Measure: 0=Not Assessed/NA 4=Minimal Assistance 1=Total Assistance 5=Supervision or Setup 2=Maximal Assistance 6=Modified [place] 3=Moderate Assistance 7=Complete IndependenceSCALE: Activities may be completed with or without assistive devices. 6-Rfvxflbgye-jfaeiiz completes the activity by him/herself with no assistance from a helper. 5-Set-up or Clean-up Assistance-helper sets up or cleans up; patient completes activity. [place] assists only prior to or following the activity. 4-Supervision or Touching Assistance-helper provides verbal cues and/or touching/steadying and/or contact guard assistance as patient completes activity. Assistance may be provided throughout the activity or intermittently. 3-Partial/Moderate Assistance-helper does LESS THAN HALF the effort. [place] lifts, holds or supports trunk or limbs, but provides less than half the effort. 2-Substantial/Maximal Assistance-helper does MORE THAN HALF the effort. [place] lifts or holds trunk or limbs and provides more than half the effort. 2-Ygitvmxoe-ssykqg does ALL the effort. Patient does none of the effort to complete the activity. Or, the assistance of 2 or more helpers is required for the patient to complete the activity. If activity was not attempted, code reason: 7-Patient Refused. 9-Not Applicable-not attempted and the patient did not perform the activity before the current illness, exacerbation or injury. 10-Not Attempted due to Environmental Limitations-(lack of equipment, weather restraints, etc.). 88-Not Attempted due to Medical Conditions or Safety Concerns. Roll Left to Right (QC): 6 Sit to Lying (QC): 6 Sit to Stand (QC): 5 Chair/Xen-zy-Ruulj Xfer(QC): 4 Car Transfer (QC): 4 Gait Training Does the Patient Walk?: Yes Distance: 300, 50 Walk 10 feet (QC): 4 Walk 50 ft with 2 Turns(QC): 4 Walk 150 ft (QC): 4 Walking 10ft/uneven surface-QC: 1 (Mod (A) of 2 with assist with walker propulsion - LOB when attempting to advance (L) LE.) Gait Persons Needed: 1 Gait Assistive Device: FWW Wheelchair Training Does the Pt Use a Wheelchair?: Yes Distance: 50' Wheel 50 ft with 2 turns (QC): 6 Wheel 150 ft (QC): 6 Type of Wheelchair: Manual Stair Training #of Steps: 4 1 Step (curb) (QC): 4 4 Steps (QC): 4 12 Steps (QC): 88 Balance Picking up an Object (QC): 3 (Min (A) of 1-2 with FWW and assembly line supervisor with LOB to (L) after object was lifted off floor with assembly line supervisor in (R) UE.) ADL-Treatment Eating (QC): 6 Oral Hygiene (QC): 6 Shower/Bathe Self (QC): 6 Upper Body Dressing (QC): 5 Lower Body Dressing (QC): 4 On/Off Footwear (QC): 4 Toileting Hygiene (QC): 4 Toilet Transfer (QC): 4 Assessment/Plan Assessment and Plan Assess & Plan/Chief Complaint Assessment: 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
[2022-07-12 08:45] VITALS: BP 121/85
[2022-07-12] MEDS: FLUoxetine HCL 10 MG (PROzac) CAPSULE/TABLET PO SCH (08:46)
[2022-07-12] MEDS: ASPIRIN 81 MG CHEW (CHILDREN'S ASA) PO SCH (08:46)
[2022-07-12] MEDS: OLANZapine 2.5 MG (ZyPREXA) TAB PO SCH ×2 (08:46→20:46)
[2022-07-12] MEDS: PANTOPRAZOLE 40 MG (PROTONIX) TAB PO SCH (08:46)
[2022-07-12] MEDS: ALPRAZolam 0.25 MG (XANAX) TAB PO PRN ×2 (08:46→16:49)
[2022-07-12] MEDS: APIXABAN 5 MG (ELIQUIS) TABLET PO SCH ×2 (08:46→20:47)
[2022-07-12] MEDS: DICLOFENAC 1% GEL 100 GM (VOLTAREN) TUBE TOP SCH ×4 (08:46→20:53)
[2022-07-12] MEDS: polyethylene glycoL POWDER 17 GM (MIRALAX) PACK PO SCH ×2 (08:47→20:53)
[2022-07-12] MEDS: SENNA W/DOCUSATE (SENOKOT S) TABLET PO SCH ×2 (08:47→20:53)
[2022-07-12] MEDS: DOCUSATE SODIUM 100 MG (COLACE) CAP PO SCH ×2 (08:47→20:53)
[2022-07-12 19:45] VITALS: BP 141/88
[2022-07-12] MEDS: DIPHENHYDRAMINE 25 MG PO PRN (20:46)
[2022-07-12] MEDS: MELATONIN 3 MG TABLET PO PRN (20:46)
[2022-07-12] MEDS: TEMAZEPAM 15 MG (RESTORIL) CAP PO SCH (20:46)
[2022-07-13 05:12] LABS: BASOPHILS # (AUTO) 0.1 10^3/uL (0.0-0.1); BASOPHILS % (AUTO) 1 % (0-10); EOSINOPHILS # (AUTO) 0.2 10^3/uL (0.0-0.3); EOSINOPHILS % (AUTO) 4 % (0-10); HEMATOCRIT 36 % (40-54); HEMOGLOBIN 11.6 g/dL (13.3-17.7); LYMPHOCYTES # (AUTO) 1.5 10^3/uL (1.0-4.0); LYMPHOCYTES % (AUTO) 27 % (12-44); MEAN CORPUSCULAR HEMOGLOBIN 31 pg (25-34); MEAN CORPUSCULAR HGB CONC 32 g/dL (32-36); MEAN CORPUSCULAR VOLUME 97 fL (80-99); MEAN PLATELET VOLUME 11.4 fL (9.0-12.2); MONOCYTES # (AUTO) 0.5 10^3/uL (0.0-1.0); MONOCYTES % (AUTO) 8 % (0-12); NEUTROPHILS # (AUTO) 3.2 10^3/uL (1.8-7.8); NEUTROPHILS % (AUTO) 58 % (42-75); PLATELET COUNT 150 10^3/uL (130-400); WHITE BLOOD COUNT 5.6 10^3/uL (4.3-11.0)
--- NOTE | 2022-07-13 05:26 | PM&R Progress Note ---
Subjective HPI/CC On Admission Date Seen by Provider: July 13, 2022 Time Seen by Provider: 09:00 Subjective/Events-last exam 07/13/2022: No major issues Noted blood hue to his semen so I counseled him on sources No pain reported 07/12/2022: No major issues Boyfriend at bedside No falls No pain 07/11/2022: No major issues No falls No pain 07/10/2022: No major issues Improved sleep at night Less agitation and confusion No falls 07/09/2022: Doing well Slept better No pain reported No falls 07/08/2022: Doing well No pain Impulsive Confusion and agitation at night occurs 07/07/2022: Doing well Hallucinations every evening No new issues 07/06/2022: No major issues Remains impulsive Evening time he becomes agitated and requires antipsychotics and ativan Labs reviewed and liver improved 07/05/2022: Patient was agitated last evening requiring IM Ativan Improved overall Impulsive and a major fall risk 07/04/2022: Doing well LFT's elevated unsure of chronicity Patient improved overall No falls BM regimen maintained Review of Systems General: Fatigue, Malaise Objective Exam Vital Signs Vital Signs Date Time Temp Pulse Resp B/P (MAP) Pulse Ox O2 Delivery O2 Flow Rate FiO2 07/13/22 19:36 37.1 99 18 138/74 (95) 98 Room Air Capillary Refill : General Appearance: No Apparent Distress, WD/WN, Thin HEENT: PERRL/EOMI, Normal ENT Inspection, Pharynx Normal Neck: Full Range of Motion, Normal Inspection, Non Tender, Supple, Carotid Bruit Respiratory: Chest Non Tender, Lungs Clear, Normal Breath Sounds, No Accessory Muscle Use, No Respiratory Distress Cardiovascular: Regular Rate, Rhythm, No Edema, No Gallop, No JVD, No Murmur, Normal Peripheral Pulses Gastrointestinal: Normal Bowel Sounds, No Organomegaly, No Pulsatile Mass, Non Tender, Soft Back: Normal Inspection, No CVA Tenderness, No Vertebral Tenderness Extremity: Normal Capillary Refill, Normal Inspection, Normal Range of Motion, Non Tender, No Calf Tenderness, No Pedal Edema Neurologic/Psychiatric: Alert, Oriented x3, court crier II-XII Norm as Tested, Abnormal Gait, Aphasia, Depressed Affect, Motor Weakness Skin: Normal Color, Warm/Dry Lymphatic: No Adenopathy Results/Procedures Lab Laboratory Tests 07/13/22 04:53 Patient resulted labs reviewed. FIM Transfers Therapy Code Descriptions/Definitions Functional [place] Measure: 0=Not Assessed/NA 4=Minimal Assistance 1=Total Assistance 5=Supervision or Setup 2=Maximal Assistance 6=Modified [place] 3=Moderate Assistance 7=Complete IndependenceSCALE: Activities may be completed with or without assistive devices. 3-Camasqdddr-nxcswsi completes the activity by him/herself with no assistance from a helper. 5-Set-up or Clean-up Assistance-helper sets up or cleans up; patient completes activity. [place] assists only prior to or following the activity. 4-Supervision or Touching Assistance-helper provides verbal cues and/or touching/steadying and/or contact guard assistance as patient completes activity. Assistance may be provided throughout the activity or intermittently. 3-Partial/Moderate Assistance-helper does LESS THAN HALF the effort. [place] lifts, holds or supports trunk or limbs, but provides less than half the effort. 2-Substantial/Maximal Assistance-helper does MORE THAN HALF the effort. [place] lifts or holds trunk or limbs and provides more than half the effort. 0-Qlhvlthtq-drjbdx does ALL the effort. Patient does none of the effort to co mplete the activity. Or, the assistance of 2 or more helpers is required for the patient to complete the activity. If activity was not attempted, code reason: 7-Patient Refused. 9-Not Applicable-not attempted and the patient did not perform the activity before the current illness, exacerbation or injury. 10-Not Attempted due to Environmental Limitations-(lack of equipment, weather restraints, etc.). 88-Not Attempted due to Medical Conditions or Safety Concerns. Roll Left to Right (QC): 6 Sit to Lying (QC): 6 Sit to Stand (QC): 5 Chair/Vle-nv-Rgldt Xfer(QC): 4 Car Transfer (QC): 4 Gait Training Does the Patient Walk?: Yes Distance: 300, 50 Walk 10 feet (QC): 4 Walk 50 ft with 2 Turns(QC): 4 Walk 150 ft (QC): 4 Walking 10ft/uneven surface-QC: 1 (Mod (A) of 2 with assist with walker propulsion - LOB when attempting to advance (L) LE.) Gait Persons Needed: 1 Gait Assistive Device: FWW Wheelchair Training Does the Pt Use a Wheelchair?: Yes Distance: 50' Wheel 50 ft with 2 turns (QC): 6 Wheel 150 ft (QC): 6 Type of Wheelchair: Manual Stair Training #of Steps: 4 1 Step (curb) (QC): 4 4 Steps (QC): 4 12 Steps (QC): 88 Balance Picking up an Object (QC): 3 (Min (A) of 1-2 with FWW and group rooms coordinator with LOB to (L) after object was lifted off floor with group rooms coordinator in (R) UE.) ADL-Treatment Eating (QC): 6 Oral Hygiene (QC): 6 Shower/Bathe Self (QC): 6 Upper Body Dressing (QC): 5 Lower Body Dressing (QC): 4 On/Off Footwear (QC): 4 Toileting Hygiene (QC): 4 Toilet Transfer (QC): 4 Assessment/Plan Assessment and Plan Assess & Plan/Chief Complaint Assessment: 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
[2022-07-13 05:28] LABS: ALBUMIN 3.7 GM/DL (3.2-4.5); BILIRUBIN,TOTAL 0.3 MG/DL (0.1-1.0); CALCIUM 9.3 MG/DL (8.5-10.1); CREATININE SERUM 1.02 MG/DL (0.60-1.30); POTASSIUM 4.3 MMOL/L (3.6-5.0); TOTAL PROTEIN 6.6 GM/DL (6.4-8.2)
[2022-07-13 08:16] VITALS: BP 151/77
[2022-07-13] MEDS: DOCUSATE SODIUM 100 MG (COLACE) CAP PO SCH ×2 (08:24→20:15)
[2022-07-13] MEDS: polyethylene glycoL POWDER 17 GM (MIRALAX) PACK PO SCH ×2 (08:24→20:16)
[2022-07-13] MEDS: OLANZapine 2.5 MG (ZyPREXA) TAB PO SCH ×2 (08:27→20:13)
[2022-07-13] MEDS: PANTOPRAZOLE 40 MG (PROTONIX) TAB PO SCH (08:27)
[2022-07-13] MEDS: APIXABAN 5 MG (ELIQUIS) TABLET PO SCH ×2 (08:27→20:13)
[2022-07-13] MEDS: FLUoxetine HCL 10 MG (PROzac) CAPSULE/TABLET PO SCH (08:27)
[2022-07-13] MEDS: ASPIRIN 81 MG CHEW (CHILDREN'S ASA) PO SCH (08:27)
[2022-07-13] MEDS: SENNA W/DOCUSATE (SENOKOT S) TABLET PO SCH ×2 (08:30→20:16)
--- NOTE | 2022-07-13 09:59 | Occupational Ther Daily Note ---
OT Current Status-Daily Note Subjective Pt alert sitting in w/c. Pt agrees to therapy. No c/o pain. Mental Status/Objective Patient Orientation: Person, Place, Time, Situation ADL-Treatment Pt agrees to shower. Pt gathered supplies at w/c level for safety, independent. Pt is impulsive and has overall coordination/balance difficulty when completing functional tasks in standing. Pt sat 100% of the time to take shower using shower bench, grabbars and hand held shower independently. CGA/SBA for transfers in/out of shower. Independent with UBD and footwear. Pt able to thread feet into lower body clothing then close SBA/CGA while standing to hike own pants. Independent with oral care sitting at sink. Independent with eating. Therapy Code Descriptions/Definitions Functional [place] Measure: 0=Not Assessed/NA 4=Minimal Assistance 1=Total Assistance 5=Supervision or Setup 2=Maximal Assistance 6=Modified [place] 3=Moderate Assistance 7=Complete IndependenceSCALE: Activities may be completed with or without assistive devices. 6-Cfwezvbnto-gnqjmvn completes the activity by him/herself with no assistance from a helper. 5-Set-up or Clean-up Assistance-helper sets up or cleans up; patient completes activity. [place] assists only prior to or following the activity. 4-Supervision or Touching Assistance-helper provides verbal cues and/or touching/steadying and/or contact guard assistance as patient completes activity. Assistance may be provided throughout the activity or intermittently. 3-Partial/Moderate Assistance-helper does LESS THAN HALF the effort. [place] l ifts, holds or supports trunk or limbs, but provides less than half the effort. 2-Substantial/Maximal Assistance-helper does MORE THAN HALF the effort. [place] lifts or holds trunk or limbs and provides more than half the effort. 2-Aqiyiwcfo-rbewap does ALL the effort. Patient does none of the effort to complete the activity. Or, the assistance of 2 or more helpers is required for t he patient to complete the activity. If activity was not attempted, code reason: 7-Patient Refused. 9-Not Applicable-not attempted and the patient did not perform the activity before the current illness, exacerbation or injury. 10-Not Attempted due to Environmental Limitations-(lack of equipment, weather restraints, etc.). 88-Not Attempted due to Medical Conditions or Safety Concerns. Eating (QC): 6 Oral Hygiene (QC): 6 Shower/Bathe Self (QC): 6 Upper Body Dressing (QC): 6 Lower Body Dressing (QC): 4 On/Off Footwear: 6 Other Treatment Pt completed dynamic standing balance tasks to increase coordination/balance while simulating workplace requirements. Pt requires CGA and verbal cues for safe positioning. Pt then completed arm bike for 15 min at 25 castillo resistance to increase strength and activity tolerance for daily functional tasks. After session, pt lying in bed with call light/phone in reach. All needs met in room. OT Short Term Goals Short Term Goals Time Frame: July 15, 2022 Upper body dressin Lower body dressin Putting on/taking off footwear: 5 OT Senior Living Goals Senior Living Goals Time Frame: July 24, 2022 Acute change in mental status: 0 Inattention: 0 Disorganized thinkin Altered level of consciousness: 0 Eating (QC): 6 Oral Hygiene (QC): 6 Toileting Hygiene (QC): 6 Shower/Bathe Self (QC): 6 Upper Body Dressing (QC): 6 Lower Body Dressing (QC): 6 On/Off Footwear (QC): 6 Additional Goals: 1-Demonstrate ADL Tasks, 2-Verbalize Understanding, 3- ImproveStrength/[place] 1=Demonstrate adherence to instructed precautions during ADL tasks. 2=Patient will verbalize/demonstrate understanding of assistive devices/modifications for ADL. 3=Patient will improve strength/tolerance for activity to enable patient to perform ADL's. OT Education/Plan Problem List/Assessment Assessment: Decreased Activ Tolerance, Impaired Coordination, Impaired Funct Balance, Impaired Self-Care Skills Discharge Recommendations Plan/Recommendations: Continue POC Treatment Plan/Plan of Care Patient would benefit from OT for education, treatment and training to promote independence in ADL's, mobility, safety and/or upper extremity function for ADL's. Plan of Care: ADL Retraining, Functional Mobility, Group Exercise/Act as Ind, UE Funct Exercise/Act, UE Neuromus Re-Ed/Coord Treatment Duration: July 24, 2022 Frequency: At least 5 of 7 days/Wk (IRF) Estimated Hrs Per Day: 1.5 hours per day Agreement: Yes Rehab Potential: Fair Time Start Time: 08:15 Stop Time: 09:45 DATE: July 13, 2022 Total Time Billed (hr/min): 90 Billed Treatment Time 1 visit-ADL 3 (45 min) EX 3 (45 min) EDWIN HAUSER July 13, 2022 09:59
[2022-07-13] MEDS: DICLOFENAC 1% GEL 100 GM (VOLTAREN) TUBE TOP SCH ×4 (11:00→20:16)
--- NOTE | 2022-07-13 12:52 | Physical Therapy Daily Note ---
PT Daily Note-Current Subjective pt in room upon arrival and willing for therapy. pt kept stalling therapy with bathroom breaks, soda breaks, ice cream breaks. however pt did complete activity that was asked of him but need Mod encouragement to finish therapy. Pain Section J - Health Conditions 1. Rarely or not at all 2. Occasionally 3. Frequently 4. Almost constantly 8. Unable to answer Pain Effect on Sleep: 1 Pain Interference with Therapy: 1 Pain Interference w/Day-to-Day: 1 Transfers SCALE: Activities may be completed with or without assistive devices. 2-Cfpagxephr-edjctms completes the activity by him/herself with no assistance from a helper. 5-Set-up or Clean-up Assistance-helper sets up or cleans up; patient completes activity. [place] assists only prior to or following the activity. 4-Supervision or Touching Assistance-helper provides verbal cues and/or touching/steadying and/or contact guard assistance as patient completes activity. Assistance may be provided throughout the activity or intermittently. 3-Partial/Moderate Assistance-helper does LESS THAN HALF the effort. [place] lifts, holds or supports trunk or limbs, but provides less than half the effort. 2-Substantial/Maximal Assistance-helper does MORE THAN HALF the effort. [place] lifts or holds trunk or limbs and provides more than half the effort. 7-Lxintfvat-ipbiue does ALL the effort. Patient does none of the effort to complete the activity. Or, the assistance of 2 or more helpers is required for the patient to complete the activity. If activity was not attempted, code reason: 7-Patient Refused. 9-Not Applicable-not attempted and the patient did not perform the activity before the current illness, exacerbation or injury. 10-Not Attempted due to Environmental Limitations-(lack of equipment, weather restraints, etc.). 88-Not Attempted due to Medical Conditions or Safety Concerns. Weight Bearing Full Weight Bearing Weight Bearing/Tolerated Foot drop (L) Gait Training Walk 10 feet (QC): 4 Walk 50 ft with 2 Turns(QC): 4 Walk 150 ft (QC): 4 Walking 10ft/uneven surface-QC: 4 Stair Training 4 Steps (QC): 4 Exercises NuStep Minutes: 15 NuStep Workload: 2 Treatments Pt is able to ambulate 250ft with RW and SBA wt VC for AD use for safety. pt is able to preform stairs in therapy gym ( 4 stairs) with Both hand rails ascend and descend x 4 this day with MAX vc for safety, sequencing and correct foot placement. Assessment Current Status: Good Progress PT Steward/Stewardess Goals Steward/Stewardess Goals PT Nursing Home Goals Time Frame: July 20, 2022 Roll Left & Right (QC): 6 Sit to Lying (QC): 6 Lying-Sitting on Side/Bed(QC): 6 Sit to Stand (QC): 5 Chair/Xyp-vz-Lwzxg Xfer(QC): 5 (with FWW) Toilet Transfer (QC): 5 (with grab bar or FWW) Car Transfer (QC): 5 (with FWW) Does the Patient Walk: Yes Walk 10 feet (QC): 4 (CGA with FWW and (L) AFO) Walk 50ft with 2 Turns (QC): 4 (CGA with FWW and (L) AFO) Walk 150 ft (QC): 4 (CGA with FWW and AFO) Walking 10ft on Uneven Surface: 4 (CGA with FWW and (L) AFO) 1 Step (curb) (QC): 4 (with FWW) 4 Steps (QC): 3 (min (A) with rails) 12 Steps (QC): 9 Picking up an Object (QC): 5 (with FWW and gun striper) Does the Pt use WC or Scooter?: Yes Wheel 50 feet with 2 turns (QC: 6 Type: Manual Wheel 150 feet: 6 Type: Manual PT Plan Problem List Problem List: Safety Treatment/Plan Treatment Plan: Continue Plan of Care Treatment Plan: Bed Mobility, Education, Functional Activity [place], Functional Strength, Group Therapy, Gait, Safety, Therapeutic Exercise, Transfers Treatment Duration: July 20, 2022 Frequency: At least 5 of 7 days/Wk (IRF) Estimated Hrs Per Day: 1.5 hours per day Patient and/or Family Agrees t: Yes Time Time In: 1010 Time Out: 1140 DATE: July 13, 2022 Total Billed Treatment Time: 90 Total Billed Treatment 1 GT x 2 EX x 2 FA x 2 Patricia Story PTA July 13, 2022 12:52
[2022-07-13] MEDS: IBUPROFEN TABLET 200 MG TAB PO PRN (13:38)
[2022-07-13] MEDS: ALPRAZolam 0.25 MG (XANAX) TAB PO PRN (17:28)
[2022-07-13 19:36] VITALS: BP 138/74
[2022-07-13] MEDS: MELATONIN 3 MG TABLET PO PRN (20:13)
[2022-07-13] MEDS: TEMAZEPAM 15 MG (RESTORIL) CAP PO SCH (20:13)
[2022-07-13] MEDS: DIPHENHYDRAMINE 25 MG PO PRN (20:14)
--- NOTE | 2022-07-14 05:24 | PM&R Progress Note ---
Subjective HPI/CC On Admission Date Seen by Provider: July 14, 2022 Time Seen by Provider: 09:00 Subjective/Events-last exam 07/14/2022: Ambulating well No pain Impulsive 07/13/2022: No major issues Noted blood hue to his semen so I counseled him on sources No pain reported 07/12/2022: No major issues Boyfriend at bedside No falls No pain 07/11/2022: No major issues No falls No pain 07/10/2022: No major issues Improved sleep at night Less agitation and confusion No falls 07/09/2022: Doing well Slept better No pain reported No falls 07/08/2022: Doing well No pain Impulsive Confusion and agitation at night occurs 07/07/2022: Doing well Hallucinations every evening No new issues 07/06/2022: No major issues Remains impulsive Evening time he becomes agitated and requires antipsychotics and ativan Labs reviewed and liver improved 07/05/2022: Patient was agitated last evening requiring IM Ativan Improved overall Impulsive and a major fall risk 07/04/2022: Doing well LFT's elevated unsure of chronicity Patient improved overall No falls BM regimen maintained Review of Systems General: Fatigue, Malaise Objective Exam Vital Signs Vital Signs Date Time Temp Pulse Resp B/P (MAP) Pulse Ox O2 Delivery O2 Flow Rate FiO2 07/14/22 08:00 Room Air 07/14/22 07:45 36.7 105 18 140/89 (106) 97 Capillary Refill : General Appearance: No Apparent Distress, WD/WN, Thin HEENT: PERRL/EOMI, Normal ENT Inspection, Pharynx Normal Neck: Full Range of Motion, Normal Inspection, Non Tender, Supple, Carotid Bruit Respiratory: Chest Non Tender, Lungs Clear, Normal Breath Sounds, No Accessory Muscle Use, No Respiratory Distress Cardiovascular: Regular Rate, Rhythm, No Edema, No Gallop, No JVD, No Murmur, Normal Peripheral Pulses Gastrointestinal: Normal Bowel Sounds, No Organomegaly, No Pulsatile Mass, Non Tender, Soft Back: Normal Inspection, No CVA Tenderness, No Vertebral Tenderness Extremity: Normal Capillary Refill, Normal Inspection, Normal Range of Motion, Non Tender, No Calf Tenderness, No Pedal Edema Neurologic/Psychiatric: Alert, Oriented x3, curing machine operator II-XII Norm as Tested, Abnormal Gait, Aphasia, Depressed Affect, Motor Weakness Skin: Normal Color, Warm/Dry Lymphatic: No Adenopathy Results/Procedures Lab Patient resulted labs reviewed. FIM Transfers Therapy Code Descriptions/Definitions Functional [place] Measure: 0=Not Assessed/NA 4=Minimal Assistance 1=Total Assistance 5=Supervision or Setup 2=Maximal Assistance 6=Modified [place] 3=Moderate Assistance 7=Complete IndependenceSCALE: Activities may be completed with or without assistive devices. 5-Enecsvruuy-tyaltlx completes the activity by him/herself with no assistance from a helper. 5-Set-up or Clean-up Assistance-helper sets up or cleans up; patient completes activity. [place] assists only prior to or following the activity. 4-Supervision or Touching Assistance-helper provides verbal cues and/or touching/steadying and/or contact guard assistance as patient completes activity. Assistance may be provided throughout the activity or intermittently. 3-Partial/Moderate Assistance-helper does LESS THAN HALF the effort. [place] lifts, holds or supports trunk or limbs, but provides less than half the effort. 2-Substantial/Maximal Assistance-helper does MORE THAN HALF the effort. [place] lifts or holds trunk or limbs and provides more than half the effort. 3-Wputlicdp-cajeli does ALL the effort. Patient does none of the effort to complete the activity. Or, the assistance of 2 or more helpers is required for the patient to complete the activity. If activity was not attempted, code reason: 7-Patient Refused. 9-Not Applicable-not attempted and the patient did not perform the activity before the current illness, exacerbation or injury. 10-Not Attempted due to Environmental Limitations-(lack of equipment, weather restraints, etc.). 88-Not Attempted due to Medical Conditions or Safety Concerns. Roll Left to Right (QC): 6 Sit to Lying (QC): 6 Sit to Stand (QC): 5 Chair/Yim-ah-Hrtdt Xfer(QC): 4 Car Transfer (QC): 4 Gait Training Does the Patient Walk?: Yes Distance: 300, 50 Walk 10 feet (QC): 4 Walk 50 ft with 2 Turns(QC): 4 Walk 150 ft (QC): 4 Walking 10ft/uneven surface-QC: 4 Gait Persons Needed: 1 Gait Assistive Device: FWW Wheelchair Training Does the Pt Use a Wheelchair?: Yes Distance: 50' Wheel 50 ft with 2 turns (QC): 6 Wheel 150 ft (QC): 6 Type of Wheelchair: Manual Stair Training #of Steps: 4 1 Step (curb) (QC): 4 4 Steps (QC): 4 12 Steps (QC): 88 Balance Picking up an Object (QC): 3 (Min (A) of 1-2 with FWW and sterilization tech with LOB to (L) after object was lifted off floor with sterilization tech in (R) UE.) ADL-Treatment Eating (QC): 6 Oral Hygiene (QC): 6 Shower/Bathe Self (QC): 6 Upper Body Dressing (QC): 6 Lower Body Dressing (QC): 4 On/Off Footwear (QC): 6 Toileting Hygiene (QC): 4 Toilet Transfer (QC): 4 Assessment/Plan Assessment and Plan Assess & Plan/Chief Complaint Assessment: 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
[2022-07-14 07:45] VITALS: BP 140/89
[2022-07-14] MEDS: FLUoxetine HCL 10 MG (PROzac) CAPSULE/TABLET PO SCH (07:53)
[2022-07-14] MEDS: DICLOFENAC 1% GEL 100 GM (VOLTAREN) TUBE TOP SCH ×4 (07:53→21:54)
[2022-07-14] MEDS: APIXABAN 5 MG (ELIQUIS) TABLET PO SCH ×2 (07:53→20:34)
[2022-07-14] MEDS: ASPIRIN 81 MG CHEW (CHILDREN'S ASA) PO SCH (07:53)
[2022-07-14] MEDS: PANTOPRAZOLE 40 MG (PROTONIX) TAB PO SCH (07:53)
[2022-07-14] MEDS: OLANZapine 2.5 MG (ZyPREXA) TAB PO SCH ×2 (07:53→20:34)
[2022-07-14] MEDS: DOCUSATE SODIUM 100 MG (COLACE) CAP PO SCH ×2 (07:58→21:53)
[2022-07-14] MEDS: polyethylene glycoL POWDER 17 GM (MIRALAX) PACK PO SCH ×2 (07:59→21:54)
[2022-07-14] MEDS: SENNA W/DOCUSATE (SENOKOT S) TABLET PO SCH ×2 (07:59→21:54)
--- NOTE | 2022-07-14 10:28 | Speech Therapy Progress Note ---
Therapy Progress Note Speech pathology received a "cognitive training" consultation for the patient as a part of the group acute rehabilitation order set at admission. At this time, skilled speech pathology services have not been requested or warranted by specific contact. Please re-consult speech pathology with any changes or concerns. Thank you. SARAH JANSEN July 14, 2022 10:28
--- NOTE | 2022-07-14 12:44 | Physical Therapy Daily Note ---
PT Daily Note-Current Subjective Pt in therapy gym when found and willing for therapy. pt reports a "tad" fatigue. pt reports no pain during therapy. Pain Section J - Health Conditions 1. Rarely or not at all 2. Occasionally 3. Frequently 4. Almost constantly 8. Unable to answer Pain Effect on Sleep: 1 Pain Interference with Therapy: 1 Pain Interference w/Day-to-Day: 1 Transfers SCALE: Activities may be completed with or without assistive devices. 2-Rbhtrfibqv-dlfjzqq completes the activity by him/herself with no assistance from a helper. 5-Set-up or Clean-up Assistance-helper sets up or cleans up; patient completes activity. [place] assists only prior to or following the activity. 4-Supervision or Touching Assistance-helper provides verbal cues and/or touching/steadying and/or contact guard assistance as patient completes activity. Assistance may be provided throughout the activity or intermittently. 3-Partial/Moderate Assistance-helper does LESS THAN HALF the effort. [place] lifts, holds or supports trunk or limbs, but provides less than half the effort. 2-Substantial/Maximal Assistance-helper does MORE THAN HALF the effort. [place] lifts or holds trunk or limbs and provides more than half the effort. 0-Khyswhbsj-iyxoej does ALL the effort. Patient does none of the effort to complete the activity. Or, the assistance of 2 or more helpers is required for the patient to complete the activity. If activity was not attempted, code reason: 7-Patient Refused. 9-Not Applicable-not attempted and the patient did not perform the activity before the current illness, exacerbation or injury. 10-Not Attempted due to Environmental Limitations-(lack of equipment, weather restraints, etc.). 88-Not Attempted due to Medical Conditions or Safety Concerns. Weight Bearing Full Weight Bearing Weight Bearing/Tolerated Foot drop (L) Exercises NuStep Minutes: 5 NuStep Workload: 9 Treatments Pt preformed Nu-step at level 9 for increased mm strength and coordination . pt preformed ambulation in // on uneven surface with CGA down and back x 3. with VC of 40% for sequencing and safety. pt ambulated inside // bars with finger touch. down and back with CGA and VC of 30% to prevent falls for sequencing and balance Assessment Current Status: Excellent Progress PT Nursing Technician Goals Nursing Technician Goals PT Prison Goals Time Frame: July 20, 2022 Roll Left & Right (QC): 6 Sit to Lying (QC): 6 Lying-Sitting on Side/Bed(QC): 6 Sit to Stand (QC): 5 Chair/Hqz-wo-Etohl Xfer(QC): 5 (with FWW) Toilet Transfer (QC): 5 (with grab bar or FWW) Car Transfer (QC): 5 (with FWW) Does the Patient Walk: Yes Walk 10 feet (QC): 4 (CGA with FWW and (L) AFO) Walk 50ft with 2 Turns (QC): 4 (CGA with FWW and (L) AFO) Walk 150 ft (QC): 4 (CGA with FWW and AFO) Walking 10ft on Uneven Surface: 4 (CGA with FWW and (L) AFO) 1 Step (curb) (QC): 4 (with FWW) 4 Steps (QC): 3 (min (A) with rails) 12 Steps (QC): 9 Picking up an Object (QC): 5 (with FWW and division operations manager) Does the Pt use WC or Scooter?: Yes Wheel 50 feet with 2 turns (QC: 6 Type: Manual Wheel 150 feet: 6 Type: Manual PT Plan Treatment/Plan Treatment Plan: Continue Plan of Care Treatment Plan: Bed Mobility, Education, Functional Activity [place], Functional Strength, Group Therapy, Gait, Safety, Therapeutic Exercise, Transfers Treatment Duration: July 20, 2022 Frequency: At least 5 of 7 days/Wk (IRF) Estimated Hrs Per Day: 1.5 hours per day Patient and/or Family Agrees t: Yes Time Time In: 1100 Time Out: 1200 DATE: July 14, 2022 Total Billed Treatment Time: 60 Total Billed Treatment 1 Gt x2 FA Patricia Bradford DICTATING TRANSCRIBING MACHINE SERVICER July 14, 2022 12:44
--- NOTE | 2022-07-14 13:42 | Occupational Ther Daily Note ---
OT Current Status-Daily Note Subjective Pt alert, getting into shower. Pt agrees to therapy. No c/o pain. Mental Status/Objective Patient Orientation: Person, Place, Time, Situation ADL-Treatment Pt agrees to shower. Pt independent with shower using shower bench, grabbar and hand held shower. Set up for UBD and footwear. SBA for LBD. Independent sitting at sink to complete oral care. Supervision for toileting and toilet transfer. Independent eating. Therapy Code Descriptions/Definitions Functional [place] Measure: 0=Not Assessed/NA 4=Minimal Assistance 1=Total Assistance 5=Supervision or Setup 2=Maximal Assistance 6=Modified [place] 3=Moderate Assistance 7=Complete IndependenceSCALE: Activities may be completed with or without assistive devices. 9-Kmnhdaleva-epxruno completes the activity by him/herself with no assistance from a helper. 5-Set-up or Clean-up Assistance-helper sets up or cleans up; patient completes activity. [place] assists only prior to or following the activity. 4-Supervision or Touching Assistance-helper provides verbal cues and/or t ouching/steadying and/or contact guard assistance as patient completes activity. Assistance may be provided throughout the activity or intermittently. 3-Partial/Moderate Assistance-helper does LESS THAN HALF the effort. [place] lifts, holds or supports trunk or limbs, but provides less than half the effort. 2-Substantial/Maximal Assistance-helper does MORE THAN HALF the effort. [place] lifts or holds trunk or limbs and provides more than half the effort. 5-Vwrvffbzt-umepft does ALL the effort. Patient does none of the effort to complete the activity. Or, the assistance of 2 or more helpers is required for the patient to complete the activity. If activity was not attempted, code reason: 7-Patient Refused. 9-Not Applicable-not attempted and the patient did not perform the activity before the current illness, exacerbation or injury. 10-Not Attempted due to Environmental Limitations-(lack of equipment, weather restraints, etc.). 88-Not Attempted due to Medical Conditions or Safety Concerns. Eating (QC): 6 Oral Hygiene (QC): 6 Shower/Bathe Self (QC): 6 Upper Body Dressing (QC): 5 Lower Body Dressing (QC): 4 On/Off Footwear: 5 Toileting Hygiene (QC): 4 Toilet Transfer (QC): 4 Other Treatment Pt walking inside parallel bars with only finger tips on bars for steadying assistance and min A to CGA for safety while pt ambulated 6x's. Pt then working on side stepping and walking backward in parallel bars, 4x's each. Pt then retrieved items from one side of parallel bars then turned around to place on 2nd surface with CGA for safety. After session, pt sitting in [facility] area at table reading a book. All needs met. OT Short Term Goals Short Term Goals Time Frame: July 15, 2022 Upper body dressin Lower body dressin Putting on/taking off footwear: 5 OT Alf Goals Alf Goals Time Frame: July 24, 2022 Acute change in mental status: 0 Inattention: 0 Disorganized thinkin Altered level of consciousness: 0 Eating (QC): 6 Oral Hygiene (QC): 6 Toileting Hygiene (QC): 6 Shower/Bathe Self (QC): 6 Upper Body Dressing (QC): 6 Lower Body Dressing (QC): 6 On/Off Footwear (QC): 6 Additional Goals: 1-Demonstrate ADL Tasks, 2-Verbalize Understanding, 3- ImproveStrength/[place] 1=Demonstrate adherence to instructed precautions during ADL tasks. 2=Patient will verbalize/demonstrate understanding of assistive devices/modifications for ADL. 3=Patient will improve strength/tolerance for activity to enable patient to perform ADL's. OT Education/Plan Problem List/Assessment Assessment: Decreased Activ Tolerance, Decreased Safety Aware, Impaired Coordination, Impaired Funct Balance, Impaired Self-Care Skills Discharge Recommendations Plan/Recommendations: Continue POC Treatment Plan/Plan of Care Patient would benefit from OT for education, treatment and training to promote independence in ADL's, mobility, safety and/or upper extremity function for ADL's. Plan of Care: ADL Retraining, Functional Mobility, Group Exercise/Act as Ind, UE Funct Exercise/Act, UE Neuromus Re-Ed/Coord Treatment Duration: July 24, 2022 Frequency: At least 5 of 7 days/Wk (IRF) Estimated Hrs Per Day: 1.5 hours per day Agreement: Yes Rehab Potential: Fair Time Start Time: 08:00 Stop Time: 09:30 DATE: July 14, 2022 Total Time Billed (hr/min): 90 Billed Treatment Time 1 visit-ADL 3 (45 min) EX 3 (45 min) KUNCE,EDWIN FOUNTAIN ATTENDANT July 14, 2022 13:42
--- NOTE | 2022-07-14 13:56 | Physical Therapy Daily Note ---
PT Daily Note-Current Subjective pt was in therapy gym upon arrival and pt was agreeable to therapy. Pain Section J - Health Conditions 1. Rarely or not at all 2. Occasionally 3. Frequently 4. Almost constantly 8. Unable to answer Pain Effect on Sleep: 1 Pain Interference with Therapy: 1 Pain Interference w/Day-to-Day: 1 Transfers SCALE: Activities may be completed with or without assistive devices. 3-Hjvwulwacd-sfzpqjk completes the activity by him/herself with no assistance from a helper. 5-Set-up or Clean-up Assistance-helper sets up or cleans up; patient completes activity. [place] assists only prior to or following the activity. 4-Supervision or Touching Assistance-helper provides verbal cues and/or touching/steadying and/or contact guard assistance as patient completes activity. Assistance may be provided throughout the activity or intermittently. 3-Partial/Moderate Assistance-helper does LESS THAN HALF the effort. [place] lifts, holds or supports trunk or limbs, but provides less than half the effort. 2-Substantial/Maximal Assistance-helper does MORE THAN HALF the effort. [place] lifts or holds trunk or limbs and provides more than half the effort. 3-Rsbhkjzng-ikpmlv does ALL the effort. Patient does none of the effort to complete the activity. Or, the assistance of 2 or more helpers is required for the patient to complete the activity. If activity was not attempted, code reason: 7-Patient Refused. 9-Not Applicable-not attempted and the patient did not perform the activity before the current illness, exacerbation or injury. 10-Not Attempted due to Environmental Limitations-(lack of equipment, weather restraints, etc.). 88-Not Attempted due to Medical Conditions or Safety Concerns. Weight Bearing Full Weight Bearing Weight Bearing/Tolerated Foot drop (L) Treatments pt was educated on floor transfers and getting up from the floor in case of a fall or when he gets on the floor to play with his puppies. pt was shown, then h e demonstrated and then taught therapist correct sequencing for safety. pt preformed transfers down and up from therapy mat this day with SBA Assessment Current Status: Excellent Progress PT Mcc Goals Payroll Benefits Administrator Goals PT Mcc Goals Time Frame: July 20, 2022 Roll Left & Right (QC): 6 Sit to Lying (QC): 6 Lying-Sitting on Side/Bed(QC): 6 Sit to Stand (QC): 5 Chair/Sef-mo-Rhjuh Xfer(QC): 5 (with FWW) Toilet Transfer (QC): 5 (with grab bar or FWW) Car Transfer (QC): 5 (with FWW) Does the Patient Walk: Yes Walk 10 feet (QC): 4 (CGA with FWW and (L) AFO) Walk 50ft with 2 Turns (QC): 4 (CGA with FWW and (L) AFO) Walk 150 ft (QC): 4 (CGA with FWW and AFO) Walking 10ft on Uneven Surface: 4 (CGA with FWW and (L) AFO) 1 Step (curb) (QC): 4 (with FWW) 4 Steps (QC): 3 (min (A) with rails) 12 Steps (QC): 9 Picking up an Object (QC): 5 (with FWW and assembly machine set up mechanic) Does the Pt use WC or Scooter?: Yes Wheel 50 feet with 2 turns (QC: 6 Type: Manual Wheel 150 feet: 6 Type: Manual PT Plan Treatment/Plan Treatment Plan: Continue Plan of Care Treatment Plan: Bed Mobility, Education, Functional Activity [place], Functional Strength, Group Therapy, Gait, Safety, Therapeutic Exercise, Transfers Treatment Duration: July 20, 2022 Frequency: At least 5 of 7 days/Wk (IRF) Estimated Hrs Per Day: 1.5 hours per day Patient and/or Family Agrees t: Yes Time Time In: 99 Time Out: 129 DATE: July 14, 2022 Total Billed Treatment Time: 30 Total Billed Treatment 1 FA x 2 Patricia Story HELPER MARBLE FINISHER July 14, 2022 13:56
[2022-07-14] MEDS: ALPRAZolam 0.25 MG (XANAX) TAB PO PRN (19:30)
[2022-07-14] MEDS: TEMAZEPAM 15 MG (RESTORIL) CAP PO SCH (20:34)
[2022-07-14] MEDS: DIPHENHYDRAMINE 25 MG PO PRN (20:35)
[2022-07-14 20:36] VITALS: BP 139/88
[2022-07-14] MEDS: MELATONIN 3 MG TABLET PO PRN (22:28)
[2022-07-14] MEDS: IBUPROFEN TABLET 200 MG TAB PO PRN (22:28)
--- NOTE | 2022-07-15 05:21 | PM&R Progress Note ---
Subjective HPI/CC On Admission Date Seen by Provider: July 15, 2022 Time Seen by Provider: 12:00 Subjective/Events-last exam 07/15/2022: No major issues Can't live independently and having difficulties with this No falls No pain Impulsive 07/14/2022: Ambulating well No pain Impulsive 07/13/2022: No major issues Noted blood hue to his semen so I counseled him on sources No pain reported 07/12/2022: No major issues Boyfriend at bedside No falls No pain 07/11/2022: No major issues No falls No pain 07/10/2022: No major issues Improved sleep at night Less agitation and confusion No falls 07/09/2022: Doing well Slept better No pain reported No falls 07/08/2022: Doing well No pain Impulsive Confusion and agitation at night occurs 07/07/2022: Doing well Hallucinations every evening No new issues 07/06/2022: No major issues Remains impulsive Evening time he becomes agitated and requires antipsychotics and ativan Labs reviewed and liver improved 07/05/2022: Patient was agitated last evening requiring IM Ativan Improved overall Impulsive and a major fall risk 07/04/2022: Doing well LFT's elevated unsure of chronicity Patient improved overall No falls BM regimen maintained Review of Systems General: Fatigue, Malaise Objective Exam Vital Signs Vital Signs Date Time Temp Pulse Resp B/P (MAP) Pulse Ox O2 Delivery O2 Flow Rate FiO2 07/15/22 09:00 Room Air 07/15/22 08:00 36.5 96 18 135/83 (100) 96 Capillary Refill : General Appearance: No Apparent Distress, WD/WN, Thin HEENT: PERRL/EOMI, Normal ENT Inspection, Pharynx Normal Neck: Full Range of Motion, Normal Inspection, Non Tender, Supple, Carotid Bruit Respiratory: Chest Non Tender, Lungs Clear, Normal Breath Sounds, No Accessory Muscle Use, No Respiratory Distress Cardiovascular: Regular Rate, Rhythm, No Edema, No Gallop, No JVD, No Murmur, Normal Peripheral Pulses Gastrointestinal: Normal Bowel Sounds, No Organomegaly, No Pulsatile Mass, Non Tender, Soft Back: Normal Inspection, No CVA Tenderness, No Vertebral Tenderness Extremity: Normal Capillary Refill, Normal Inspection, Normal Range of Motion, Non Tender, No Calf Tenderness, No Pedal Edema Neurologic/Psychiatric: Alert, Oriented x3, functional skills tutor II-XII Norm as Tested, Abnormal Gait, Aphasia, Depressed Affect, Motor Weakness Skin: Normal Color, Warm/Dry Lymphatic: No Adenopathy Results/Procedures Lab Patient resulted labs reviewed. FIM Transfers Therapy Code Descriptions/Definitions Functional [place] Measure: 0=Not Assessed/NA 4=Minimal Assistance 1=Total Assistance 5=Supervision or Setup 2=Maximal Assistance 6=Modified [place] 3=Moderate Assistance 7=Complete IndependenceSCALE: Activities may be completed with or without assistive devices. 7-Sntfmhegdi-xtraxit completes the activity by him/herself with no assistance from a helper. 5-Set-up or Clean-up Assistance-helper sets up or cleans up; patient completes activity. [place] assists only prior to or following the activity. 4-Supervision or Touching Assistance-helper provides verbal cues and/or touching/steadying and/or contact guard assistance as patient completes activity. Assistance may be provided throughout the activity or intermittently. 3-Partial/Moderate Assistance-helper does LESS THAN HALF the effort. [place] lif ts, holds or supports trunk or limbs, but provides less than half the effort. 2-Substantial/Maximal Assistance-helper does MORE THAN HALF the effort. [place] lifts or holds trunk or limbs and provides more than half the effort. 4-Gfewjeyaw-xrxcjz does ALL the effort. Patient does none of the effort to complete the activity. Or, the assistance of 2 or more helpers is required for the patient to complete the activity. If activity was not attempted, code reason: 7-Patient Refused. 9-Not Applicable-not attempted and the patient did not perform the activity before the current illness, exacerbation or injury. 10-Not Attempted due to Environmental Limitations-(lack of equipment, weather restraints, etc.). 88-Not Attempted due to Medical Conditions or Safety Concerns. Roll Left to Right (QC): 6 Sit to Lying (QC): 6 Sit to Stand (QC): 5 Chair/Uxg-rk-Zhylh Xfer(QC): 4 Car Transfer (QC): 4 Gait Training Does the Patient Walk?: Yes Distance: 300, 50 Walk 10 feet (QC): 4 Walk 50 ft with 2 Turns(QC): 4 Walk 150 ft (QC): 4 Walking 10ft/uneven surface-QC: 4 Gait Persons Needed: 1 Gait Assistive Device: FWW Wheelchair Training Does the Pt Use a Wheelchair?: Yes Distance: 50' Wheel 50 ft with 2 turns (QC): 6 Wheel 150 ft (QC): 6 Type of Wheelchair: Manual Stair Training #of Steps: 4 1 Step (curb) (QC): 4 4 Steps (QC): 4 12 Steps (QC): 88 Balance Picking up an Object (QC): 3 (Min (A) of 1-2 with FWW and instrument engineer with LOB to (L) after object was lifted off floor with instrument engineer in (R) UE.) ADL-Treatment Eating (QC): 6 Oral Hygiene (QC): 6 Shower/Bathe Self (QC): 6 Upper Body Dressing (QC): 5 Lower Body Dressing (QC): 4 On/Off Footwear (QC): 5 Toileting Hygiene (QC): 4 Toilet Transfer (QC): 4 Assessment/Plan Assessment and Plan Assess & Plan/Chief Complaint Assessment: 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 Agitation prior telesitter at [place] but only becomes agitated in eveningtime here GERD Left leg pain HIV Elevated LFT's-improved Plan: Monitor closely OAC Aggressive therapy 07/04/2022: Monitor LFT's 07/05/2022: Impulsive 07/06/2022: Agitation treatment required 07/07/2022: Monitor closely 07/08/2022: Alter anti-psychotics 07/09/2022: Continue antipsychotics 07/10/2022: Monitor closely 07/11/2022: Monitor closely 07/12/2022: Monitor pain 07/13/2022: Improved status 07/14/2022: Ambulating now 07/15/2022: Monitor emotional status (1) CVA (cerebral vascular accident) BREANA PATTON DO July 15, 2022 05:21
[2022-07-15] MEDS: ALPRAZolam 0.25 MG (XANAX) TAB PO PRN ×2 (06:26→14:05)
--- NOTE | 2022-07-15 07:27 | Occupational Ther Daily Note ---
OT Current Status-Daily Note Subjective Pt alert, sitting in w/c. Pt agrees to therapy. No c/o pain. Mental Status/Objective Patient Orientation: Person, Place, Time, Situation ADL-Treatment Pt requests shower this AM. Pt positions w/c to transfer into shower then uses shower bench and grabbars to transfer into/out of shower with supervision. Sitting 100% of the time, pt completes shower independently using grabbars and hand held shower. Pt gathered supplies for dressing at w/c level. Donned/doffed shirt and footwear independently. Pt threads clothing over feet then with SBA, pt hikes pants over hips. Supervision for toileting, safety concerns for balance. Pt independent with eating and oral care at w/c level. After session, pt sitting in w/c reading book at [facility] [employer]. All needs met. Therapy Code Descriptions/Definitions Functional [place] Measure: 0=Not Assessed/NA 4=Minimal Assistance 1=Total Assistance 5=Supervision or Setup 2=Maximal Assistance 6=Modified [place] 3=Moderate Assistance 7=Complete IndependenceSCALE: Activities may be completed with or without assistive devices. 6-Kbulivkwrw-shnsomm completes the activity by him/herself with no assistance from a helper. 5-Set-up or Clean-up Assistance-helper sets up or cleans up; patient completes activity. [place] assists only prior to or following the activity. 4-Supervision or Touching Assistance-helper provides verbal cues and/or touching/steadying and/or contact guard assistance as patient completes activity. Assistance may be provided throughout the activity or intermittently. 3-Partial/Moderate Assistance-helper does LESS THAN HALF the effort. [place] lifts, holds or supports trunk or limbs, but provides less than half the effort. 2-Substantial/Maximal Assistance-helper does MORE THAN HALF the effort. [place] lifts or holds trunk or limbs and provides more than half the effort. 2-Rznnivfye-vsupeo does ALL the effort. Patient does none of the effort to compl ete the activity. Or, the assistance of 2 or more helpers is required for the patient to complete the activity. If activity was not attempted, code reason: 7-Patient Refused. 9-Not Applicable-not attempted and the patient did not perform the activity before the current illness, exacerbation or injury. 10-Not Attempted due to Environmental Limitations-(lack of equipment, weather restraints, etc.). 88-Not Attempted due to Medical Conditions or Safety Concerns. Eating (QC): 6 Oral Hygiene (QC): 6 Shower/Bathe Self (QC): 6 Upper Body Dressing (QC): 6 Lower Body Dressing (QC): 4 On/Off Footwear: 6 Toileting Hygiene (QC): 4 Toilet Transfer (QC): 4 OT Short Term Goals Short Term Goals Time Frame: July 15, 2022 Upper body dressin Lower body dressin Putting on/taking off footwear: 5 OT Retirement Goals Electric Shaver Mechanic Goals Time Frame: July 24, 2022 Acute change in mental status: 0 Inattention: 0 Disorganized thinkin Altered level of consciousness: 0 Eating (QC): 6 Oral Hygiene (QC): 6 Toileting Hygiene (QC): 6 Shower/Bathe Self (QC): 6 Upper Body Dressing (QC): 6 Lower Body Dressing (QC): 6 On/Off Footwear (QC): 6 Additional Goals: 1-Demonstrate ADL Tasks, 2-Verbalize Understanding, 3- ImproveStrength/[place] 1=Demonstrate adherence to instructed precautions during ADL tasks. 2=Patient will verbalize/demonstrate understanding of assistive devices/modifications for ADL. 3=Patient will improve strength/tolerance for activity to enable patient to perform ADL's. OT Education/Plan Problem List/Assessment Assessment: Decreased Safety Aware, Impaired Funct Balance, Impaired Self-Care Skills Discharge Recommendations Plan/Recommendations: Continue POC Treatment Plan/Plan of Care Patient would benefit from OT for education, treatment and training to promote independence in ADL's, mobility, safety and/or upper extremity function for ADL's. Plan of Care: ADL Retraining, Functional Mobility, Group Exercise/Act as Ind, UE Funct Exercise/Act, UE Neuromus Re-Ed/Coord Treatment Duration: July 24, 2022 Frequency: At least 5 of 7 days/Wk (IRF) Estimated Hrs Per Day: 1.5 hours per day Agreement: Yes Rehab Potential: Fair Time Start Time: 06:40 Stop Time: 07:25 DATE: July 15, 2022 Total Time Billed (hr/min): 45 Billed Treatment Time 1 visit-ADL 3 (45 min) EDWIN HAUSER July 15, 2022 07:27
[2022-07-15 08:00] VITALS: BP 135/83
[2022-07-15] MEDS: APIXABAN 5 MG (ELIQUIS) TABLET PO SCH ×2 (08:09→20:49)
[2022-07-15] MEDS: FLUoxetine HCL 10 MG (PROzac) CAPSULE/TABLET PO SCH (08:09)
[2022-07-15] MEDS: PANTOPRAZOLE 40 MG (PROTONIX) TAB PO SCH (08:09)
[2022-07-15] MEDS: ASPIRIN 81 MG CHEW (CHILDREN'S ASA) PO SCH (08:09)
[2022-07-15] MEDS: OLANZapine 2.5 MG (ZyPREXA) TAB PO SCH ×2 (08:09→20:49)
[2022-07-15] MEDS: DOCUSATE SODIUM 100 MG (COLACE) CAP PO SCH ×2 (08:10→20:55)
[2022-07-15] MEDS: SENNA W/DOCUSATE (SENOKOT S) TABLET PO SCH ×2 (08:10→20:55)
[2022-07-15] MEDS: polyethylene glycoL POWDER 17 GM (MIRALAX) PACK PO SCH ×2 (08:10→20:55)
[2022-07-15] MEDS: DICLOFENAC 1% GEL 100 GM (VOLTAREN) TUBE TOP SCH ×4 (08:12→20:55)
--- NOTE | 2022-07-15 09:29 | Occupational Ther Daily Note ---
OT Current Status-Daily Note Subjective Pt alert, sitting in w/c. Pt agrees to therapy. No c/o pain. OT/PT co-treat ([id number]), skills of 2 clinicians required to educate SO during training for pt's safe return home. PT focusing on ambulation, transfer and functional mobility while OT focusing on functional mobility, ADLs and B UE placement dur ing all mobility. SO concerned about pt's anxiety and short temper at home that would cause pt to make rash and unsafe decisions, SW talking with both about this. Mental Status/Objective Patient Orientation: Person, Place, Time, Situation ADL-Treatment Supervision with toileting using grabbars and w/c. Therapy Code Descriptions/Definitions Functional [place] Measure: 0=Not Assessed/NA 4=Minimal Assistance 1=Total Assistance 5=Supervision or Setup 2=Maximal Assistance 6=Modified [place] 3=Moderate Assistance 7=Complete IndependenceSCALE: Activities may be completed with or without assistive devices. 3-Dkjkxchwyt-ehllnar completes the activity by him/herself with no assistance from a helper. 5-Set-up or Clean-up Assistance-helper sets up or cleans up; patient completes activity. [place] assists only prior to or following the activity. 4-Supervision or Touching Assistance-helper provides verbal cues and/or touching/steadying and/or contact guard assistance as patient completes activity. Assistance may be provided throughout the activity or intermittently. 3-Partial/Moderate Assistance-helper does LESS THAN HALF the effort. [place] lifts, holds or supports trunk or limbs, but provides less than half the effort. 2-Substantial/Maximal Assistance-helper does MORE THAN HALF the effort. [place] lifts or holds trunk or limbs and provides more than half the effort. 7-Alukqgrpg-avlcuk does ALL the effort. Patient does none of the effort to complete the activity. Or, the assistance of 2 or more helpers is required for the patient to complete the activity. If activity was not attempted, code reason: 7-Patient Refused. 9-Not Applicable-not attempted and the patient did not perform the activity before the current illness, exacerbation or injury. 10-Not Attempted due to Environmental Limitations-(lack of equipment, weather restraints, etc.). 88-Not Attempted due to Medical Conditions or Safety Concerns. Toileting Hygiene (QC): 4 Other Treatment Pt completed a variety of mobility challenges to educate pt's SO with pt's ability to complete ambulation, w/c mobility, transfers and steps. Pt required CGA to SBA with all standing tasks due to slight balance issues and L LE weakness during dynamic standing techniques. See PT notes for progress. Pt then demonstrated squat pivot transfer from surface to surface independently. Pt left in care of SW and SO. All needs met. OT Short Term Goals Short Term Goals Time Frame: July 15, 2022 Upper body dressin Lower body dressin Putting on/taking off footwear: 5 OT Gun Striper Goals [facility] Goals Time Frame: July 24, 2022 Acute change in mental status: 0 Inattention: 0 Disorganized thinkin Altered level of consciousness: 0 Eating (QC): 6 Oral Hygiene (QC): 6 Toileting Hygiene (QC): 6 Shower/Bathe Self (QC): 6 Upper Body Dressing (QC): 6 Lower Body Dressing (QC): 6 On/Off Footwear (QC): 6 Additional Goals: 1-Demonstrate ADL Tasks, 2-Verbalize Understanding, 3- ImproveStrength/[place] 1=Demonstrate adherence to instructed precautions during ADL tasks. 2=Patient will verbalize/demonstrate understanding of assistive devices/modifications for ADL. 3=Patient will improve strength/tolerance for activity to enable patient to perform ADL's. OT Education/Plan Problem List/Assessment Assessment: Decreased Safety Aware, Impaired Funct Balance, Impaired Self-Care Skills Discharge Recommendations Plan/Recommendations: Continue POC Treatment Plan/Plan of Care Patient would benefit from OT for education, treatment and training to promote independence in ADL's, mobility, safety and/or upper extremity function for ADL's. Plan of Care: ADL Retraining, Functional Mobility, Group Exercise/Act as Ind, UE Funct Exercise/Act, UE Neuromus Re-Ed/Coord Treatment Duration: July 24, 2022 Frequency: At least 5 of 7 days/Wk (IRF) Estimated Hrs Per Day: 1.5 hours per day Agreement: Yes Rehab Potential: Fair Time Start Time: 08:30 Stop Time: 09:30 DATE: July 15, 2022 Total Time Billed (hr/min): 60 Billed Treatment Time 1 visit-FA 4 (60 min) co-treat with PT [id number], individual [id number] EDWIN HAUSER July 15, 2022 09:29
[2022-07-15] MEDS: IBUPROFEN TABLET 200 MG TAB PO PRN ×2 (12:21→20:12)
--- NOTE | 2022-07-15 12:54 | Physical Therapy Daily Note ---
PT Daily Note-Current Pain Section J - Health Conditions 1. Rarely or not at all 2. Occasionally 3. Frequently 4. Almost constantly 8. Unable to answer Pain Effect on Sleep: 1 Pain Interference with Therapy: 1 Pain Interference w/Day-to-Day: 1 Transfers SCALE: Activities may be completed with or without assistive devices. 1-Yvvczlfcyk-cgfwlwy completes the activity by him/herself with no assistance from a helper. 5-Set-up or Clean-up Assistance-helper sets up or cleans up; patient completes activity. [place] assists only prior to or following the activity. 4-Supervision or Touching Assistance-helper provides verbal cues and/or touching/steadying and/or contact guard assistance as patient completes activity. Assistance may be provided throughout the activity or intermittently. 3-Partial/Moderate Assistance-helper does LESS THAN HALF the effort. [place] lifts, holds or supports trunk or limbs, but provides less than half the effort. 2-Substantial/Maximal Assistance-helper does MORE THAN HALF the effort. [place] lifts or holds trunk or limbs and provides more than half the effort. 9-Qaylhhdla-jhxtei does ALL the effort. Patient does none of the effort to complete the activity. Or, the assistance of 2 or more helpers is required for the patient to complete the activity. If activity was not attempted, code reason: 7-Patient Refused. 9-Not Applicable-not attempted and the patient did not perform the activity before the current illness, exacerbation or injury. 10-Not Attempted due to Environmental Limitations-(lack of equipment, weather restraints, etc.). 88-Not Attempted due to Medical Conditions or Safety Concerns. Weight Bearing Full Weight Bearing Weight Bearing/Tolerated Foot drop (L) PT Corporate Licensed Broker Goals Care Home Goals PT Care Home Goals Time Frame: July 20, 2022 Roll Left & Right (QC): 6 Sit to Lying (QC): 6 Lying-Sitting on Side/Bed(QC): 6 Sit to Stand (QC): 5 Chair/Mnc-hq-Izmzm Xfer(QC): 5 (with FWW) Toilet Transfer (QC): 5 (with grab bar or FWW) Car Transfer (QC): 5 (with FWW) Does the Patient Walk: Yes Walk 10 feet (QC): 4 (CGA with FWW and (L) AFO) Walk 50ft with 2 Turns (QC): 4 (CGA with FWW and (L) AFO) Walk 150 ft (QC): 4 (CGA with FWW and AFO) Walking 10ft on Uneven Surface: 4 (CGA with FWW and (L) AFO) 1 Step (curb) (QC): 4 (with FWW) 4 Steps (QC): 3 (min (A) with rails) 12 Steps (QC): 9 Picking up an Object (QC): 5 (with FWW and supervisor ski production) Does the Pt use WC or Scooter?: Yes Wheel 50 feet with 2 turns (QC: 6 Type: Manual Wheel 150 feet: 6 Type: Manual PT Plan Treatment/Plan Treatment Plan: Continue Plan of Care Treatment Plan: Bed Mobility, Education, Functional Activity [place], Functional Strength, Group Therapy, Gait, Safety, Therapeutic Exercise, Transfers Treatment Duration: July 20, 2022 Frequency: At least 5 of 7 days/Wk (IRF) Estimated Hrs Per Day: 1.5 hours per day Patient and/or Family Agrees t: Yes Time Time In: 0830 Time Out: 0900 DATE: July 15, 2022 Total Billed Treatment Time: 30 Total Billed Treatment 1 FA x 2 Patricia Story FIRING PIN GAUGER July 15, 2022 12:54
--- NOTE | 2022-07-15 13:00 | Physical Therapy Daily Note ---
PT Daily Note-Current Subjective Pt in room and willing for therapy this day. OT/PT co-treat ([id number]), skills of 2 clinicians required to educate SO during training for pt's safe return home. PT focusing on ambulation, transfer and functional mobility while OT focusing on functional mobility, ADLs and B UE placement during all mobility. SO concerned about pt's anxiety and short temper at home that would cause pt to make rash and unsafe decisions. 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 Pain Section J - Health Conditions 1. Rarely or not at all 2. Occasionally 3. Frequently 4. Almost constantly 8. Unable to answer Pain Effect on Sleep: 1 Pain Interference with Therapy: 1 Pain Interference w/Day-to-Day: 1 Transfers SCALE: Activities may be completed with or without assistive devices. 4-Rzrajbthpo-wgojfkw completes the activity by him/herself with no assistance from a helper. 5-Set-up or Clean-up Assistance-helper sets up or cleans up; patient completes activity. [place] assists only prior to or following the activity. 4-Supervision or Touching Assistance-helper provides verbal cues and/or touchi ng/steadying and/or contact guard assistance as patient completes activity. Assistance may be provided throughout the activity or intermittently. 3-Partial/Moderate Assistance-helper does LESS THAN HALF the effort. [place] lifts, holds or supports trunk or limbs, but provides less than half the effort. 2-Substantial/Maximal Assistance-helper does MORE THAN HALF the effort. [place] lifts or holds trunk or limbs and provides more than half the effort. 4-Uthcyybug-khpyuc does ALL the effort. Patient does none of the effort to complete the activity. Or, the assistance of 2 or more helpers is required for the patient to complete the activity. If activity was not attempted, code reason: 7-Patient Refused. 9-Not Applicable-not attempted and the patient did not perform the activity before the current illness, exacerbation or injury. 10-Not Attempted due to Environmental Limitations-(lack of equipment, weather restraints, etc.). 88-Not Attempted due to Medical Conditions or Safety Concerns. Weight Bearing Full Weight Bearing Weight Bearing/Tolerated Foot drop (L) Treatments Family training with S/O. S/O was shown and trained on WC transfers car transfers, ambulation with RW and bed mobility this day. both Pt and S/O understood pt impulsivity and safety concerns. No further questions for PT at this time. all other questions have been directed to SW. PT Information Assurance Officer Goals Nursing Home Goals PT Information Assurance Officer Goals Time Frame: July 20, 2022 Roll Left & Right (QC): 6 Sit to Lying (QC): 6 Lying-Sitting on Side/Bed(QC): 6 Sit to Stand (QC): 5 Chair/Zug-jk-Jtjzs Xfer(QC): 5 (with FWW) Toilet Transfer (QC): 5 (with grab bar or FWW) Car Transfer (QC): 5 (with FWW) Does the Patient Walk: Yes Walk 10 feet (QC): 4 (CGA with FWW and (L) AFO) Walk 50ft with 2 Turns (QC): 4 (CGA with FWW and (L) AFO) Walk 150 ft (QC): 4 (CGA with FWW and AFO) Walking 10ft on Uneven Surface: 4 (CGA with FWW and (L) AFO) 1 Step (curb) (QC): 4 (with FWW) 4 Steps (QC): 3 (min (A) with rails) 12 Steps (QC): 9 Picking up an Object (QC): 5 (with FWW and travel sales consultant) Does the Pt use WC or Scooter?: Yes Wheel 50 feet with 2 turns (QC: 6 Type: Manual Wheel 150 feet: 6 Type: Manual PT Plan Treatment/Plan Treatment Plan: Continue Plan of Care Treatment Plan: Bed Mobility, Education, Functional Activity [place], Functional Strength, Group Therapy, Gait, Safety, Therapeutic Exercise, Transfers Treatment Duration: July 20, 2022 Frequency: At least 5 of 7 days/Wk (IRF) Estimated Hrs Per Day: 1.5 hours per day Patient and/or Family Agrees t: Yes Time Time In: 0830 Time Out: 0900 DATE: July 15, 2022 Total Billed Treatment Time: 30 Total Billed Treatment 1 FA x 2 CO treat ot/pt from 08:30-09:00 for 300 mins Patricia Story PAYROLL BENEFITS ADMINISTRATOR July 15, 2022 13:00
--- NOTE | 2022-07-15 14:32 | Physical Therapy Daily Note ---
PT Daily Note-Current Subjective pt in therapy common area and good for therapy. pt expressed anxiety and sadness about the recent family placement meeting for discharge. pt was angered and needed multiple VC for calm temperament. pt was talking with SW and radha periodically about future placement. pt did have a hard time focusing with all interactions this day. . Pain Section J - Health Conditions 1. Rarely or not at all 2. Occasionally 3. Frequently 4. Almost constantly 8. Unable to answer Pain Effect on Sleep: 1 Pain Interference with Therapy: 1 Pain Interference w/Day-to-Day: 1 Transfers SCALE: Activities may be completed with or without assistive devices. 3-Yhmfvzamnp-zysrvde completes the activity by him/herself with no assistance from a helper. 5-Set-up or Clean-up Assistance-helper sets up or cleans up; patient completes activity. [place] assists only prior to or following the activity. 4-Supervision or Touching Assistance-helper provides verbal cues and/or touchin g/steadying and/or contact guard assistance as patient completes activity. Assistance may be provided throughout the activity or intermittently. 3-Partial/Moderate Assistance-helper does LESS THAN HALF the effort. [place] lifts, holds or supports trunk or limbs, but provides less than half the effort. 2-Substantial/Maximal Assistance-helper does MORE THAN HALF the effort. [place] lifts or holds trunk or limbs and provides more than half the effort. 8-Eedsotbtg-dokhna does ALL the effort. Patient does none of the effort to complete the activity. Or, the assistance of 2 or more helpers is required for the patient to complete the activity. If activity was not attempted, code reason: 7-Patient Refused. 9-Not Applicable-not attempted and the patient did not perform the activity before the current illness, exacerbation or injury. 10-Not Attempted due to Environmental Limitations-(lack of equipment, weather restraints, etc.). 88-Not Attempted due to Medical Conditions or Safety Concerns. Weight Bearing Full Weight Bearing Weight Bearing/Tolerated Foot drop (L) Treatments Pt was harnessed into the Solo-Step and working on ambulation with no AD. pt is able to ambulate 38 ft x 4 with CGA/SBA and Mod VC for correct sequencing of steppage and UE are swing for correct gait pattern, increased balance, and energy conservation. pt gets into a festering gait pattern and needs to be reminded to slow down. pt was placed on therapy mat and isometric ther-ex with BLE focusing more on LLE for neruo feedback. for 2 sets of 3 with multiple rest breaks in between with BLE mm fatiguing. PT Chcf Goals Chcf Goals PT Chcf Goals Time Frame: July 20, 2022 Roll Left & Right (QC): 6 Sit to Lying (QC): 6 Lying-Sitting on Side/Bed(QC): 6 Sit to Stand (QC): 5 Chair/Pve-ze-Mksrs Xfer(QC): 5 (with FWW) Toilet Transfer (QC): 5 (with grab bar or FWW) Car Transfer (QC): 5 (with FWW) Does the Patient Walk: Yes Walk 10 feet (QC): 4 (CGA with FWW and (L) AFO) Walk 50ft with 2 Turns (QC): 4 (CGA with FWW and (L) AFO) Walk 150 ft (QC): 4 (CGA with FWW and AFO) Walking 10ft on Uneven Surface: 4 (CGA with FWW and (L) AFO) 1 Step (curb) (QC): 4 (with FWW) 4 Steps (QC): 3 (min (A) with rails) 12 Steps (QC): 9 Picking up an Object (QC): 5 (with FWW and efficiency engineer) Does the Pt use WC or Scooter?: Yes Wheel 50 feet with 2 turns (QC: 6 Type: Manual Wheel 150 feet: 6 Type: Manual PT Plan Treatment/Plan Treatment Plan: Continue Plan of Care Treatment Plan: Bed Mobility, Education, Functional Activity [place], Functional Strength, Group Therapy, Gait, Safety, Therapeutic Exercise, Transfers Treatment Duration: July 20, 2022 Frequency: At least 5 of 7 days/Wk (IRF) Estimated Hrs Per Day: 1.5 hours per day Patient and/or Family Agrees t: Yes Time Time In: 1000 Time Out: 1100 DATE: July 15, 2022 Total Billed Treatment Time: 60 Total Billed Treatment 1 GT x 2 NM x 2 Patricia Story TRANSIT WORKER July 15, 2022 14:32
[2022-07-15 19:29] VITALS: BP 126/79
[2022-07-15] MEDS: DIPHENHYDRAMINE 25 MG PO PRN (20:48)
[2022-07-15] MEDS: MELATONIN 3 MG TABLET PO PRN (20:49)
[2022-07-15] MEDS: TEMAZEPAM 15 MG (RESTORIL) CAP PO SCH (20:49)
--- NOTE | 2022-07-16 05:24 | PM&R Progress Note ---
Subjective HPI/CC On Admission Date Seen by Provider: July 16, 2022 Time Seen by Provider: 12:00 Subjective/Events-last exam 07/16/2022: Improved overall Awaiting dispo No falls but increased risk 07/15/2022: No major issues Can't live independently and having difficulties with this No falls No pain Impulsive 07/14/2022: Ambulating well No pain Impulsive 07/13/2022: No major issues Noted blood hue to his semen so I counseled him on sources No pain reported 07/12/2022: No major issues Boyfriend at bedside No falls No pain 07/11/2022: No major issues No falls No pain 07/10/2022: No major issues Improved sleep at night Less agitation and confusion No falls 07/09/2022: Doing well Slept better No pain reported No falls 07/08/2022: Doing well No pain Impulsive Confusion and agitation at night occurs 07/07/2022: Doing well Hallucinations every evening No new issues 07/06/2022: No major issues Remains impulsive Evening time he becomes agitated and requires antipsychotics and ativan Labs reviewed and liver improved 07/05/2022: Patient was agitated last evening requiring IM Ativan Improved overall Impulsive and a major fall risk 07/04/2022: Doing well LFT's elevated unsure of chronicity Patient improved overall No falls BM regimen maintained Review of Systems General: Fatigue, Malaise Neurological: Weakness, Incoordination Objective Exam Vital Signs Vital Signs Date Time Temp Pulse Resp B/P (MAP) Pulse Ox O2 Delivery O2 Flow Rate FiO2 07/16/22 09:06 Room Air 07/16/22 08:00 36.2 110 18 135/82 (99) 97 Capillary Refill : General Appearance: No Apparent Distress, WD/WN, Thin HEENT: PERRL/EOMI, Normal ENT Inspection, Pharynx Normal Neck: Full Range of Motion, Normal Inspection, Non Tender, Supple, Carotid Bruit Respiratory: Chest Non Tender, Lungs Clear, Normal Breath Sounds, No Accessory Muscle Use, No Respiratory Distress Cardiovascular: Regular Rate, Rhythm, No Edema, No Gallop, No JVD, No Murmur, Normal Peripheral Pulses Gastrointestinal: Normal Bowel Sounds, No Organomegaly, No Pulsatile Mass, Non Tender, Soft Back: Normal Inspection, No CVA Tenderness, No Vertebral Tenderness Extremity: Normal Capillary Refill, Normal Inspection, Normal Range of Motion, Non Tender, No Calf Tenderness, No Pedal Edema Neurologic/Psychiatric: Alert, Oriented x3, media manager II-XII Norm as Tested, Abnormal Gait, Aphasia, Depressed Affect, Motor Weakness Skin: Normal Color, Warm/Dry Lymphatic: No Adenopathy Results/Procedures Lab Patient resulted labs reviewed. FIM Transfers Therapy Code Descriptions/Definitions Functional [place] Measure: 0=Not Assessed/NA 4=Minimal Assistance 1=Total Assistance 5=Supervision or Setup 2=Maximal Assistance 6=Modified [place] 3=Moderate Assistance 7=Complete IndependenceSCALE: Activities may be completed with or without assistive devices. 2-Wdybgvxmio-waxhzso completes the activity by him/herself with no assistance from a helper. 5-Set-up or Clean-up Assistance-helper sets up or cleans up; patient completes activity. [place] assists only prior to or following the activity. 4-Supervision or Touching Assistance-helper provides verbal cues and/or touching/steadying and/or contact guard assistance as patient completes activity. Assistance may be provided throughout the activity or intermittently. 3-Partial/Moderate Assistance-helper does LESS THAN HALF the effort. [place] lifts, holds or supports trunk or limbs, but provides less than half the effort. 2-Substantial/Maximal Assistance-helper does MORE THAN HALF the effort. [place] lifts or holds trunk or limbs and provides more than half the effort. 9-Ucbjvlqru-iltqnn does ALL the effort. Patient does none of the effort to complete the activity. Or, the assistance of 2 or more helpers is required for the patient to complete the activity. If activity was not attempted, code reason: 7-Patient Refused. 9-Not Applicable-not attempted and the patient did not perform the activity before the current illness, exacerbation or injury. 10-Not Attempted due to Environmental Limitations-(lack of equipment, weather restraints, etc.). 88-Not Attempted due to Medical Conditions or Safety Concerns. Roll Left to Right (QC): 6 Sit to Lying (QC): 6 Sit to Stand (QC): 5 Chair/Jlb-lz-Fowmd Xfer(QC): 4 Car Transfer (QC): 4 Gait Training Does the Patient Walk?: Yes Distance: 300, 50 Walk 10 feet (QC): 4 Walk 50 ft with 2 Turns(QC): 4 Walk 150 ft (QC): 4 Walking 10ft/uneven surface-QC: 4 Gait Persons Needed: 1 Gait Assistive Device: FWW Wheelchair Training Does the Pt Use a Wheelchair?: Yes Distance: 50' Wheel 50 ft with 2 turns (QC): 6 Wheel 150 ft (QC): 6 Type of Wheelchair: Manual Stair Training #of Steps: 4 1 Step (curb) (QC): 4 4 Steps (QC): 4 12 Steps (QC): 88 Balance Picking up an Object (QC): 3 (Min (A) of 1-2 with FWW and stock worker and deliverer with LOB to (L) after object was lifted off floor with stock worker and deliverer in (R) UE.) ADL-Treatment Eating (QC): 6 Oral Hygiene (QC): 6 Shower/Bathe Self (QC): 6 Upper Body Dressing (QC): 6 Lower Body Dressing (QC): 4 On/Off Footwear (QC): 6 Toileting Hygiene (QC): 4 Toilet Transfer (QC): 4 Assessment/Plan Assessment and Plan Assess & Plan/Chief Complaint Assessment: 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 Agitation prior telesitter at [place] but only becomes agitated in eveningtime here GERD Left leg pain HIV Elevated LFT's-improved Plan: Monitor closely OAC Aggressive therapy 07/04/2022: Monitor LFT's 07/05/2022: Impulsive 07/06/2022: Agitation treatment required 07/07/2022: Monitor closely 07/08/2022: Alter anti-psychotics 07/09/2022: Continue antipsychotics 07/10/2022: Monitor closely 07/11/2022: Monitor closely 07/12/2022: Monitor pain 07/13/2022: Improved status 07/14/2022: Ambulating now 07/15/2022: Monitor emotional status 07/16/2022: Await dispo (1) CVA (cerebral vascular accident) BREANA PATTON DO July 16, 2022 05:24
[2022-07-16 08:00] VITALS: BP 135/82
[2022-07-16] MEDS: FLUoxetine HCL 10 MG (PROzac) CAPSULE/TABLET PO SCH (08:06)
[2022-07-16] MEDS: PANTOPRAZOLE 40 MG (PROTONIX) TAB PO SCH (08:06)
[2022-07-16] MEDS: APIXABAN 5 MG (ELIQUIS) TABLET PO SCH ×2 (08:06→20:12)
[2022-07-16] MEDS: ASPIRIN 81 MG CHEW (CHILDREN'S ASA) PO SCH (08:06)
[2022-07-16] MEDS: OLANZapine 2.5 MG (ZyPREXA) TAB PO SCH ×2 (08:06→20:12)
[2022-07-16] MEDS: DOCUSATE SODIUM 100 MG (COLACE) CAP PO SCH ×3 (08:07→20:17)
[2022-07-16] MEDS: DICLOFENAC 1% GEL 100 GM (VOLTAREN) TUBE TOP SCH ×5 (08:07→20:37)
[2022-07-16] MEDS: polyethylene glycoL POWDER 17 GM (MIRALAX) PACK PO SCH ×2 (08:07→19:24)
[2022-07-16] MEDS: SENNA W/DOCUSATE (SENOKOT S) TABLET PO SCH ×3 (08:07→20:17)
--- NOTE | 2022-07-16 08:48 | Occupational Ther Daily Note ---
OT Current Status-Daily Note Subjective Pt alert, sitting in w/c at ARU table. Pt agrees to therapy. No c/o pain. Mental Status/Objective Patient Orientation: Person, Place, Time, Situation ADL-Treatment Independent with eating. Pt sat EOB and reached to closet to retrieve clothing. Pt used w/c to propel into bathroom independently then positioned to complete toilet transfer by self using grabbars and transfer into shower using grabbars and shower bench. Pt completed shower independently sitting 100% of the time using shower bench, grabbars and hand held shower. Oral care independently sitting at sink. Therapy Code Descriptions/Definitions Functional [place] Measure: 0=Not Assessed/NA 4=Minimal Assistance 1=Total Assistance 5=Supervision or Setup 2=Maximal Assistance 6=Modified [place] 3=Moderate Assistance 7=Complete IndependenceSCALE: Activities may be completed with or without assistive devices. 8-Dwdcqcuqqu-lxxdekn completes the activity by him/herself with no assistance from a helper. 5-Set-up or Clean-up Assistance-helper sets up or cleans up; patient completes activity. [place] assists only prior to or following the activity. 4-Supervision or Touching Assistance-helper provides verbal cues and/or touching/steadying and/or contact guard assistance as patient completes activity. Assistance may be provided throughout the activity or intermittently. 3-Partial/Moderate Assistance-helper does LESS THAN HALF the effort. [place] lifts, holds or supports trunk or limbs, but provides less than half the effort. 2-Substantial/Maximal Assistance-helper does MORE THAN HALF the effort. [place] lifts or holds trunk or limbs and provides more than half the effort. 1-Hpipxnobx-qhfcoy does ALL the effort. Patient does none of the effort to complete the activity. Or, the assistance of 2 or more helpers is required for the patient to complete the activity. If activity was not attempted, code reason: 7-Patient Refused. 9-Not Applicable-not attempted and the patient did not perform the activity before the current illness, exacerbation or injury. 10-Not Attempted due to Environmental Limitations-(lack of equipment, weather restraints, etc.). 88-Not Attempted due to Medical Conditions or Safety Concerns. Eating (QC): 6 Oral Hygiene (QC): 6 Shower/Bathe Self (QC): 6 Upper Body Dressing (QC): 6 Lower Body Dressing (QC): 4 (1 LOB, pt righted self.) On/Off Footwear: 6 Toileting Hygiene (QC): 6 Toilet Transfer (QC): 6 Other Treatment Fine motor tasks to increase strength, dexterity and coordination for daily functional tasks. Pt demonstrated ability to complete all tasks. After session, pt sitting in recliner with call light/phone in reach. All needs met in room. BIMS CAM BIMS Expression of Ideas and Wants: Without Difficulty Understanding Verbal Content: Understands Brief Interview/Mental Status: Yes IRF CAROL BIMS: IRF CAROL BIMS Response (Comments) Value Repitition of Three Words Three 3 Recalls Socks Yes, No Cue Required 2 Recalls Blue Yes, No Cue Required 2 Recalls Bed Yes, No Cue Required 2 Year Correct 3 Month Accurate Within 5 Days 2 Day Correct 1 Total 15 Patient Normally Able to Recal: Current Session, Location of own room, Staff Names and faces, That he/she in a hsp Should Staff Asses. Mental St.: No CAM Mental Status Change/Baseline: 0 Inattention: 0 Disorganized thinkin Altered level of consciousness: 0 OT Short Term Goals Short Term Goals Time Frame: July 15, 2022 Upper body dressin Lower body dressin Putting on/taking off footwear: 5 OT Bone Grinder Goals Bone Grinder Goals Time Frame: July 24, 2022 Acute change in mental status: 0 Inattention: 0 Disorganized thinkin Altered level of consciousness: 0 Eating (QC): 6 (met) Oral Hygiene (QC): 6 (met) Toileting Hygiene (QC): 6 (met) Shower/Bathe Self (QC): 6 (met) Upper Body Dressing (QC): 6 (met) Lower Body Dressing (QC): 6 On/Off Footwear (QC): 6 (met) Additional Goals: 1-Demonstrate ADL Tasks, 2-Verbalize Understanding, 3- ImproveStrength/[place] 1=Demonstrate adherence to instructed precautions during ADL tasks. 2=Patient will verbalize/demonstrate understanding of assistive devices/m odifications for ADL. 3=Patient will improve strength/tolerance for activity to enable patient to perform ADL's. OT Education/Plan Problem List/Assessment Assessment: Decreased Safety Aware, Impaired Coordination, Impaired Funct Balance Discharge Recommendations Plan/Recommendations: Continue POC Treatment Plan/Plan of Care Patient would benefit from OT for education, treatment and training to promote independence in ADL's, mobility, safety and/or upper extremity function for ADL's. Plan of Care: ADL Retraining, Functional Mobility, Group Exercise/Act as Ind, UE Funct Exercise/Act, UE Neuromus Re-Ed/Coord Treatment Duration: July 24, 2022 Frequency: At least 5 of 7 days/Wk (IRF) Estimated Hrs Per Day: 1.5 hours per day Agreement: Yes Rehab Potential: Fair Time Start Time: 07:15 Stop Time: 08:45 DATE: July 16, 2022 Total Time Billed (hr/min): 90 Billed Treatment Time 1 visit-ADL 4 (60 min) EX 2 (30 min) EDWIN HAUSER July 16, 2022 08:48
[2022-07-16] MEDS: LIDOCAINE 4% (SALONPAS) PATCH TP PRN (12:56)
[2022-07-16] MEDS: IBUPROFEN TABLET 200 MG TAB PO PRN ×2 (12:56→19:09)
--- NOTE | 2022-07-16 14:01 | Physical Therapy Daily Note ---
PT Daily Note-Current Subjective pt in therapy comm[facility] area and willing for therapy. pt reports pain on the posterior lateral side of knee with 4/10 pain. pt does loose focus while working with therapy and VC to refrain from distractions are required. Pain Section J - Health Conditions 1. Rarely or not at all 2. Occasionally 3. Frequently 4. Almost constantly 8. Unable to answer Pain Effect on Sleep: 1 Pain Interference with Therapy: 1 Pain Interference w/Day-to-Day: 1 Mental Status Patient Orientation: Person, Place, Time, Situation (pt ) Transfers SCALE: Activities may be completed with or without assistive devices. 7-Qqltnuvhhd-mnudurs completes the activity by him/herself with no assistance from a helper. 5-Set-up or Clean-up Assistance-helper sets up or cleans up; patient completes activity. [place] assists only prior to or following the activity. 4-Supervision or Touching Assistance-helper provides verbal cues and/or touching/steadying and/or contact guard assistance as patient completes activity. Assistance may be provided throughout the activity or intermittently. 3-Partial/Moderate Assistance-helper does LESS THAN HALF the effort. [place] lifts, holds or supports trunk or limbs, but provides less than half the effort. 2-Substantial/Maximal Assistance-helper does MORE THAN HALF the effort. [place] lifts or holds trunk or limbs and provides more than half the effort. 8-Hhsqwwngm-mgdyxk does ALL the effort. Patient does none of the effort to complete the activity. Or, the assistance of 2 or more helpers is required for the patient to complete the activity. If activity was not attempted, code reason: 7-Patient Refused. 9-Not Applicable-not attempted and the patient did not perform the activity before the current illness, exacerbation or injury. 10-Not Attempted due to Environmental Limitations-(lack of equipment, weather restraints, etc.). 88-Not Attempted due to Medical Conditions or Safety Concerns. Weight Bearing Full Weight Bearing Weight Bearing/Tolerated Foot drop (L) Treatments pt harness to Solo-Step and ambulation with TEACHERS AIDE or CGA is needed. pt required VC for sequencing and balance corrections of 90%. 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 strategies for balance and self correction were VC of 90% pt requires sitting rest breaks after aprox 8-10 mins of standing activity. pt sat EOM this day and preformed Neuro muscle re-ed to the left leg to induce more mm control. Assessment Current Status: Good Progress PT Residential Goals Residential Goals PT Sales Account Representative Goals Time Frame: July 20, 2022 Roll Left & Right (QC): 6 Sit to Lying (QC): 6 Lying-Sitting on Side/Bed(QC): 6 Sit to Stand (QC): 5 Chair/Ejj-sh-Dzikn Xfer(QC): 5 (with FWW) Toilet Transfer (QC): 5 (with grab bar or FWW) Car Transfer (QC): 5 (with FWW) Does the Patient Walk: Yes Walk 10 feet (QC): 4 (CGA with FWW and (L) AFO) Walk 50ft with 2 Turns (QC): 4 (CGA with FWW and (L) AFO) Walk 150 ft (QC): 4 (CGA with FWW and AFO) Walking 10ft on Uneven Surface: 4 (CGA with FWW and (L) AFO) 1 Step (curb) (QC): 4 (with FWW) 4 Steps (QC): 3 (min (A) with rails) 12 Steps (QC): 9 Picking up an Object (QC): 5 (with FWW and data warehousing specialist) Does the Pt use WC or Scooter?: Yes Wheel 50 feet with 2 turns (QC: 6 Type: Manual Wheel 150 feet: 6 Type: Manual PT Plan Treatment/Plan Treatment Plan: Continue Plan of Care Treatment Plan: Bed Mobility, Education, Functional Activity [place], Functional Strength, Group Therapy, Gait, Safety, Therapeutic Exercise, Transfers Treatment Duration: July 20, 2022 Frequency: At least 5 of 7 days/Wk (IRF) Estimated Hrs Per Day: 1.5 hours per day Patient and/or Family Agrees t: Yes Time Time In: 0900 Time Out: 1030 DATE: July 16, 2022 Total Billed Treatment Time: 90 Total Billed Treatment 1 GT x 4 NM x 2 Patricia Story NURSING HOME ASSISTANT ADMINISTRATOR July 16, 2022 14:01
[2022-07-16] MEDS: ACETAMINOPHEN 325 MG TABLET PO PRN (18:23)
[2022-07-16] MEDS: TEMAZEPAM 15 MG (RESTORIL) CAP PO SCH (20:12)
[2022-07-16] MEDS: MELATONIN 3 MG TABLET PO PRN (20:17)
[2022-07-16] MEDS: ALPRAZolam 0.25 MG (XANAX) TAB PO PRN (20:17)
[2022-07-16 20:28] VITALS: BP 139/92
[2022-07-16] MEDS: DIPHENHYDRAMINE 25 MG PO PRN (20:36)
--- NOTE | 2022-07-17 05:01 | PM&R Progress Note ---
Subjective HPI/CC On Admission Date Seen by Provider: July 17, 2022 Time Seen by Provider: 12:00 Subjective/Events-last exam 07/17/2022: Doing well Awaiting dispo No falls Improved status 07/16/2022: Improved overall Awaiting dispo No falls but increased risk 07/15/2022: No major issues Can't live independently and having difficulties with this No falls No pain Impulsive 07/14/2022: Ambulating well No pain Impulsive 07/13/2022: No major issues Noted blood hue to his semen so I counseled him on sources No pain reported 07/12/2022: No major issues Boyfriend at bedside No falls No pain 07/11/2022: No major issues No falls No pain 07/10/2022: No major issues Improved sleep at night Less agitation and confusion No falls 07/09/2022: Doing well Slept better No pain reported No falls 07/08/2022: Doing well No pain Impulsive Confusion and agitation at night occurs 07/07/2022: Doing well Hallucinations every evening No new issues 07/06/2022: No major issues Remains impulsive Evening time he becomes agitated and requires antipsychotics and ativan Labs reviewed and liver improved 07/05/2022: Patient was agitated last evening requiring IM Ativan Improved overall Impulsive and a major fall risk 07/04/2022: Doing well LFT's elevated unsure of chronicity Patient improved overall No falls BM regimen maintained Review of Systems General: Fatigue, Malaise Objective Exam Vital Signs Vital Signs Date Time Temp Pulse Resp B/P (MAP) Pulse Ox O2 Delivery O2 Flow Rate FiO2 07/17/22 20:54 Room Air 07/17/22 20:53 36.8 115 18 140/79 (99) 97 Capillary Refill : General Appearance: No Apparent Distress, WD/WN, Thin HEENT: PERRL/EOMI, Normal ENT Inspection, Pharynx Normal Neck: Full Range of Motion, Normal Inspection, Non Tender, Supple, Carotid Bruit Respiratory: Chest Non Tender, Lungs Clear, Normal Breath Sounds, No Accessory Muscle Use, No Respiratory Distress Cardiovascular: Regular Rate, Rhythm, No Edema, No Gallop, No JVD, No Murmur, Normal Peripheral Pulses Gastrointestinal: Normal Bowel Sounds, No Organomegaly, No Pulsatile Mass, Non Tender, Soft Back: Normal Inspection, No CVA Tenderness, No Vertebral Tenderness Extremity: Normal Capillary Refill, Normal Inspection, Normal Range of Motion, Non Tender, No Calf Tenderness, No Pedal Edema Neurologic/Psychiatric: Alert, Oriented x3, scroll shear operator II-XII Norm as Tested, Abnormal Gait, Aphasia, Depressed Affect, Motor Weakness Skin: Normal Color, Warm/Dry Lymphatic: No Adenopathy Results/Procedures Lab Patient resulted labs reviewed. FIM Transfers Therapy Code Descriptions/Definitions Functional [place] Measure: 0=Not Assessed/NA 4=Minimal Assistance 1=Total Assistance 5=Supervision or Setup 2=Maximal Assistance 6=Modified [place] 3=Moderate Assistance 7=Complete IndependenceSCALE: Activities may be completed with or without assistive devices. 9-Kgokuoadcu-sifhlar completes the activity by him/herself with no assistance from a helper. 5-Set-up or Clean-up Assistance-helper sets up or cleans up; patient completes activity. [place] assists only prior to or following the activity. 4-Supervision or Touching Assistance-helper provides verbal cues and/or touching/steadying and/or contact guard assistance as patient completes activity. Assistance may be provided throughout the activity or intermittently. 3-Partial/Moderate Assistance-helper does LESS THAN HALF the effort. [place] lifts, holds or supports trunk or limbs, but provides less than half the effort. 2-Substantial/Maximal Assistance-helper does MORE THAN HALF the effort. [place] lifts or holds trunk or limbs and provides more than half the effort. 2-Sschxzcqm-pebdgd does ALL the effort. Patient does none of the effort to complete the activity. Or, the assistance of 2 or more helpers is required for the patient to complete the activity. If activity was not attempted, code reason: 7-Patient Refused. 9-Not Applicable-not attempted and the patient did not perform the activity before the current illness, exacerbation or injury. 10-Not Attempted due to Environmental Limitations-(lack of equipment, weather restraints, etc.). 88-Not Attempted due to Medical Conditions or Safety Concerns. Roll Left to Right (QC): 6 Sit to Lying (QC): 6 Sit to Stand (QC): 5 Chair/Zxp-nl-Nsoyw Xfer(QC): 4 Car Transfer (QC): 4 Gait Training Does the Patient Walk?: Yes Distance: 300, 50 Walk 10 feet (QC): 4 Walk 50 ft with 2 Turns(QC): 4 Walk 150 ft (QC): 4 Walking 10ft/uneven surface-QC: 4 Gait Persons Needed: 1 Gait Assistive Device: FWW Wheelchair Training Does the Pt Use a Wheelchair?: Yes Distance: 50' Wheel 50 ft with 2 turns (QC): 6 Wheel 150 ft (QC): 6 Type of Wheelchair: Manual Stair Training #of Steps: 4 1 Step (curb) (QC): 4 4 Steps (QC): 4 12 Steps (QC): 88 Balance Picking up an Object (QC): 3 (Min (A) of 1-2 with FWW and personnel security specialist with LOB to (L) after object was lifted off floor with personnel security specialist in (R) UE.) ADL-Treatment Eating (QC): 6 Oral Hygiene (QC): 6 Shower/Bathe Self (QC): 6 Upper Body Dressing (QC): 6 Lower Body Dressing (QC): 4 (1 LOB, pt righted self.) On/Off Footwear (QC): 6 Toileting Hygiene (QC): 6 Toilet Transfer (QC): 6 Assessment/Plan Assessment and Plan Assess & Plan/Chief Complaint Assessment: 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 Agitation prior telesitter at [place] but only becomes agitated in eveningtime here GERD Left leg pain HIV Elevated LFT's-improved Plan: Monitor closely OAC Aggressive therapy 07/04/2022: Monitor LFT's 07/05/2022: Impulsive 07/06/2022: Agitation treatment required 07/07/2022: Monitor closely 07/08/2022: Alter anti-psychotics 07/09/2022: Continue antipsychotics 07/10/2022: Monitor closely 07/11/2022: Monitor closely 07/12/2022: Monitor pain 07/13/2022: Improved status 07/14/2022: Ambulating now 07/15/2022: Monitor emotional status 07/16/2022: Await dispo 07/17/2022: Awaiting dispo (1) CVA (cerebral vascular accident) BREANA PATTON DO July 17, 2022 05:01
--- NOTE | 2022-07-17 06:59 | Occupational Ther Daily Note ---
OT Current Status-Daily Note Subjective Pt alert, sitting in w/c. Pt agrees to therapy. Mental Status/Objective Patient Orientation: Person, Place, Time, Situation ADL-Treatment Pt completed shower by self prior to OT session, per nrsg. Pt independent with LBD, per nrsg. Pt has demonstrated ability to complete this independently from previous sessions. Pt is independent with eating. Independent with toileting. Independent with oral care. Independent with footwear. Pt is independent at w/c level with all ADLs. Pt requires SBA to supervision with ambulation using FWW for safety. Pt is aware of weakness with L knee when ambulating and is focused when ambulating to prevent knee buckling. Therapy Code Descriptions/Definitions Functional [place] Measure: 0=Not Assessed/NA 4=Minimal Assistance 1=Total Assistance 5=Supervision or Setup 2=Maximal Assistance 6=Modified [place] 3=Moderate Assistance 7=Complete IndependenceSCALE: Activities may be completed with or without assistive devices. 5-Fblevcvpbx-guaopsx completes the activity by him/herself with no assistance from a helper. 5-Set-up or Clean-up Assistance-helper sets up or cleans up; patient completes activity. [place] assists only prior to or following the activity. 4-Supervision or Touching Assistance-helper provides verbal cues and/or touching/steadying and/or contact guard assistance as patient completes activity. Assistance may be provided throughout the activity or intermittently. 3-Partial/Moderate Assistance-helper does LESS THAN HALF the effort. [place] lifts, holds or supports trunk or limbs, but provides less than half the effort. 2-Substantial/Maximal Assistance-helper does MORE THAN HALF the effort. [place] lifts or holds trunk or limbs and provides more than half the effort. 1-Jmcgowlts-grtyhr does ALL the effort. Patient does none of the effort to complete the activity. Or, the assistance of 2 or more helpers is required for the patient to complete the activity. If activity was not attempted, code reason: 7-Patient Refused. 9-Not Applicable-not attempted and the patient did not perform the activity before the current illness, exacerbation or injury. 10-Not Attempted due to Environmental Limitations-(lack of equipment, weather restraints, etc.). 88-Not Attempted due to Medical Conditions or Safety Concerns. Eating (QC): 6 Oral Hygiene (QC): 6 Shower/Bathe Self (QC): 6 Upper Body Dressing (QC): 6 Lower Body Dressing (QC): 6 On/Off Footwear: 6 Toileting Hygiene (QC): 6 Toilet Transfer (QC): 6 Other Treatment Massage and gentle stretch to L lower leg decreasing pain and increasing mobility. Pt ambulating in parallel bars warming up to complete IADLs then pt stated that his L LE was worn out and would rather complete B UE strengthening. HEP given to pt with medium resistance theraband, pt demonstrated/verbalized understanding of HEP. Pt completed resistive dowel cam exercises in sitting at parallel bars, 1 set 20 reps 3 exercises. After session, pt lying in bed with call light/phone in reach. All needs met in room. OT Short Term Goals Short Term Goals Time Frame: July 15, 2022 Upper body dressin Lower body dressin Putting on/taking off footwear: 5 OT C4 Planner Goals Fdc Goals Time Frame: July 24, 2022 Acute change in mental status: 0 Inattention: 0 Disorganized thinkin Altered level of consciousness: 0 Eating (QC): 6 (met) Oral Hygiene (QC): 6 (met) Toileting Hygiene (QC): 6 (met) Shower/Bathe Self (QC): 6 (met) Upper Body Dressing (QC): 6 (met) Lower Body Dressing (QC): 6 (met) On/Off Footwear (QC): 6 (met) Additional Goals: 1-Demonstrate ADL Tasks, 2-Verbalize Understanding, 3-ImproveStrength/[place] 1=Demonstrate adherence to instructed precautions during ADL tasks. 2=Patient will verbalize/demonstrate understanding of assistive devices/modifications for ADL. 3=Patient will improve strength/tolerance for activity to enable patient to perform ADL's. OT Education/Plan Problem List/Assessment Assessment: Decreased Safety Aware, Impaired Funct Balance Discharge Recommendations Plan/Recommendations: Continue POC Treatment Plan/Plan of Care Patient would benefit from OT for education, treatment and training to promote independence in ADL's, mobility, safety and/or upper extremity function for ADL's. Plan of Care: ADL Retraining, Functional Mobility, Group Exercise/Act as Ind, UE Funct Exercise/Act, UE Neuromus Re-Ed/Coord Treatment Duration: July 24, 2022 Frequency: At least 5 of 7 days/Wk (IRF) Estimated Hrs Per Day: 1.5 hours per day Agreement: Yes Rehab Potential: Fair Time Start Time: 07:30 Stop Time: 09:00 DATE: July 17, 2022 Total Time Billed (hr/min): 90 Billed Treatment Time 1 visit-ADL 3 (45 min) EX 3 (45 min) EDWIN HAUSER July 17, 2022 06:59
[2022-07-17 07:46] VITALS: BP 153/87
[2022-07-17] MEDS: DICLOFENAC 1% GEL 100 GM (VOLTAREN) TUBE TOP SCH ×4 (08:28→21:21)
[2022-07-17] MEDS: OLANZapine 2.5 MG (ZyPREXA) TAB PO SCH ×2 (08:28→21:38)
[2022-07-17] MEDS: DOCUSATE SODIUM 100 MG (COLACE) CAP PO SCH ×2 (08:29→21:39)
[2022-07-17] MEDS: ASPIRIN 81 MG CHEW (CHILDREN'S ASA) PO SCH (08:29)
[2022-07-17] MEDS: IBUPROFEN TABLET 200 MG TAB PO PRN ×2 (08:29→17:19)
[2022-07-17] MEDS: APIXABAN 5 MG (ELIQUIS) TABLET PO SCH ×2 (08:29→21:38)
[2022-07-17] MEDS: PANTOPRAZOLE 40 MG (PROTONIX) TAB PO SCH (08:29)
[2022-07-17] MEDS: polyethylene glycoL POWDER 17 GM (MIRALAX) PACK PO SCH ×2 (08:29→20:39)
[2022-07-17] MEDS: SENNA W/DOCUSATE (SENOKOT S) TABLET PO SCH ×2 (08:29→21:39)
[2022-07-17] MEDS: ALPRAZolam 0.25 MG (XANAX) TAB PO PRN ×2 (08:29→21:38)
[2022-07-17] MEDS: FLUoxetine HCL 10 MG (PROzac) CAPSULE/TABLET PO SCH (08:29)
[2022-07-17] MEDS: LIDOCAINE 4% (SALONPAS) PATCH TP PRN (15:10)
--- NOTE | 2022-07-17 15:55 | Physical Therapy Daily Note ---
PT Daily Note-Current Subjective pt in room upon arrival and willing for therapy. when told he was preforming a standing obstacle course today pt then stated his knees were hurting really bad. after preforming obstacle course pt requested to use the rest room. after using the restroom pt Wheeled into therapy gym. pt was preforming ther-ex on Nu-Step and kept stopping and resting and deflecting having to finish therapy. pt then requested to speak with the SW about possible placement. after speaking with the SW the pt became very agitated and refused to finish the last 20 mins of therapy. explaining how that affects the therapy sched and he is still required to finish therapy at some point the pt put himself in bed. Pain Section J - Health Conditions 1. Rarely or not at all 2. Occasionally 3. Frequently 4. Almost constantly 8. Unable to answer Pain Effect on Sleep: 1 Pain Interference with Therapy: 1 Pain Interference w/Day-to-Day: 1 Transfers SCALE: Activities may be completed with or without assistive devices. 9-Sjhtqrpmxn-bduhxdb completes the activity by him/herself with no assistance from a helper. 5-Set-up or Clean-up Assistance-helper sets up or cleans up; patient completes activity. [place] assists only prior to or following the activity. 4-Supervision or Touching Assistance-helper provides verbal cues and/or touching/steadying and/or contact guard assistance as patient completes activity. Assistance may be provided throughout the activity or intermittently. 3-Partial/Moderate Assistance-helper does LESS THAN HALF the effort. [place] lifts, holds or supports trunk or limbs, but provides less than half the effort. 2-Substantial/Maximal Assistance-helper does MORE THAN HALF the effort. [place] lifts or holds trunk or limbs and provides more than half the effort. 8-Bynargffb-gdbttl does ALL the effort. Patient does none of the effort to complete the activity. Or, the assistance of 2 or more helpers is required for the patient to complete the activity. If activity was not attempted, code reason: 7-Patient Refused. 9-Not Applicable-not attempted and the patient did not perform the activity before the current illness, exacerbation or injury. 10-Not Attempted due to Environmental Limitations-(lack of equipment, weather restraints, etc.). 88-Not Attempted due to Medical Conditions or Safety Concerns. Weight Bearing Full Weight Bearing Weight Bearing/Tolerated Foot drop (L) Exercises NuStep Minutes: 15 NuStep Workload: 1 Treatments Pt preformed obstacle course harnessed into the solo-step with RW and ambulating up and over therapy stairs 2 up and 3 down. then stepping over 4 inch high obstical with education on how to move walker and step over to prevent falls. pt was then asked to ambulate in and out of cones in a slalom pattern but was not able to do so successfully as pt hit 3 out of the 5 cones. pt was able to preform course x 2 and then required rest. Assessment Current Status: Good Progress PT Fdc Goals Mail Room Goals PT Fdc Goals Time Frame: July 20, 2022 Roll Left & Right (QC): 6 Sit to Lying (QC): 6 Lying-Sitting on Side/Bed(QC): 6 Sit to Stand (QC): 5 Chair/Bia-cz-Fuqsk Xfer(QC): 5 (with FWW) Toilet Transfer (QC): 5 (with grab bar or FWW) Car Transfer (QC): 5 (with FWW) Does the Patient Walk: Yes Walk 10 feet (QC): 4 (CGA with FWW and (L) AFO) Walk 50ft with 2 Turns (QC): 4 (CGA with FWW and (L) AFO) Walk 150 ft (QC): 4 (CGA with FWW and AFO) Walking 10ft on Uneven Surface: 4 (CGA with FWW and (L) AFO) 1 Step (curb) (QC): 4 (with FWW) 4 Steps (QC): 3 (min (A) with rails) 12 Steps (QC): 9 Picking up an Object (QC): 5 (with FWW and director of brand marketing) Does the Pt use WC or Scooter?: Yes Wheel 50 feet with 2 turns (QC: 6 Type: Manual Wheel 150 feet: 6 Type: Manual PT Plan Treatment/Plan Treatment Plan: Continue Plan of Care Treatment Plan: Bed Mobility, Education, Functional Activity [place], Functional Strength, Group Therapy, Gait, Safety, Therapeutic Exercise, Transfers Treatment Duration: July 20, 2022 Frequency: At least 5 of 7 days/Wk (IRF) Estimated Hrs Per Day: 1.5 hours per day Patient and/or Family Agrees t: Yes Time Time In: 0900 Time Out: 1010 DATE: July 17, 2022 Total Billed Treatment Time: 70 Total Billed Treatment 1 GT x 3 ex x 2 Patricia Story GEOLOGIC TECHNICIAN July 17, 2022 15:55
--- NOTE | 2022-07-17 16:06 | Physical Therapy Daily Note ---
PT Daily Note-Current Subjective pt was in therapy commons area upon arrival. pt willing for therapy. pt kept making distractions and attempts to dodge therapy but with MAX VC was able to redirect ot obtain therapy pt has to use the restroom 3 times in 20 mins. and needed a cup of coffee and well as getting a muffin. Pain Section J - Health Conditions 1. Rarely or not at all 2. Occasionally 3. Frequently 4. Almost constantly 8. Unable to answer Pain Effect on Sleep: 1 Pain Interference with Therapy: 1 Pain Interference w/Day-to-Day: 1 Transfers SCALE: Activities may be completed with or without assistive devices. 5-Uucfwzamxa-jylzukn completes the activity by him/herself with no assistance from a helper. 5-Set-up or Clean-up Assistance-helper sets up or cleans up; patient completes activity. [place] assists only prior to or following the activity. 4-Supervision or Touching Assistance-helper provides verbal cues and/or touching/steadying and/or contact guard assistance as patient completes activity. Assistance may be provided throughout the activity or intermittently. 3-Partial/Moderate Assistance-helper does LESS THAN HALF the effort. [place] lifts, holds or supports trunk or limbs, but provides less than half the effort. 2-Substantial/Maximal Assistance-helper does MORE THAN HALF the effort. [place] lifts or holds trunk or limbs and provides more than half the effort. 0-Jcgkgpnjq-vzxykd does ALL the effort. Patient does none of the effort to complete the activity. Or, the assistance of 2 or more helpers is required for the patient to complete the activity. If activity was not attempted, code reason: 7-Patient Refused. 9-Not Applicable-not attempted and the patient did not perform the activity before the current illness, exacerbation or injury. 10-Not Attempted due to Environmental Limitations-(lack of equipment, weather restraints, etc.). 88-Not Attempted due to Medical Conditions or Safety Concerns. Weight Bearing Full Weight Bearing Weight Bearing/Tolerated Foot drop (L) Exercises Seated Therapy Exercises: Ankle pumps, Hip flexion, Hamstring Curls, Glut set Seated Reps: 15 PT Fdc Goals Railway Patrol Officer Goals PT Fdc Goals Time Frame: July 20, 2022 Roll Left & Right (QC): 6 Sit to Lying (QC): 6 Lying-Sitting on Side/Bed(QC): 6 Sit to Stand (QC): 5 Chair/Ule-fj-Ffwpn Xfer(QC): 5 (with FWW) Toilet Transfer (QC): 5 (with grab bar or FWW) Car Transfer (QC): 5 (with FWW) Does the Patient Walk: Yes Walk 10 feet (QC): 4 (CGA with FWW and (L) AFO) Walk 50ft with 2 Turns (QC): 4 (CGA with FWW and (L) AFO) Walk 150 ft (QC): 4 (CGA with FWW and AFO) Walking 10ft on Uneven Surface: 4 (CGA with FWW and (L) AFO) 1 Step (curb) (QC): 4 (with FWW) 4 Steps (QC): 3 (min (A) with rails) 12 Steps (QC): 9 Picking up an Object (QC): 5 (with FWW and photograph retoucher) Does the Pt use WC or Scooter?: Yes Wheel 50 feet with 2 turns (QC: 6 Type: Manual Wheel 150 feet: 6 Type: Manual PT Plan Problem List Problem List: Safety Treatment/Plan Treatment Plan: Continue Plan of Care Treatment Plan: Bed Mobility, Education, Functional Activity [place], Functional Strength, Group Therapy, Gait, Safety, Therapeutic Exercise, Transfers Treatment Duration: July 20, 2022 Frequency: At least 5 of 7 days/Wk (IRF) Estimated Hrs Per Day: 1.5 hours per day Patient and/or Family Agrees t: Yes Time Time In: 1353 Time Out: 1413 DATE: July 17, 2022 Total Billed Treatment Time: 20 Total Billed Treatment 1 EX x 2 Patricia Story PTA July 17, 2022 16:06
[2022-07-17] MEDS: ACETAMINOPHEN 325 MG TABLET PO PRN (18:23)
[2022-07-17 20:53] VITALS: BP 140/79
[2022-07-17] MEDS: MELATONIN 3 MG TABLET PO PRN (21:38)
[2022-07-17] MEDS: TEMAZEPAM 15 MG (RESTORIL) CAP PO SCH (21:38)
[2022-07-18 07:30] VITALS: BP 132/80
--- NOTE | 2022-07-18 07:39 | PM&R Progress Note ---
Subjective HPI/CC On Admission Date Seen by Provider: July 18, 2022 Time Seen by Provider: 11:30 Subjective/Events-last exam 07/18/2022: Agitation noted Wants to go home Needs AL or NHP Admitted to me that he took Nyquil which was brought in my his friend and he slept well last night Nurses were not aware of this and I specifically did no approve that when he asked for it yesterday since that could increase his confusion due to alcohol content and when nurse evaluated the bottle he was drinking it and almost had finished it Needs DC 07/17/2022: Doing well Awaiting dispo No falls Improved status 07/16/2022: Improved overall Awaiting dispo No falls but increased risk 07/15/2022: No major issues Can't live independently and having difficulties with this No falls No pain Impulsive 07/14/2022: Ambulating well No pain Impulsive 07/13/2022: No major issues Noted blood hue to his semen so I counseled him on sources No pain reported 07/12/2022: No major issues Boyfriend at bedside No falls No pain 07/11/2022: No major issues No falls No pain 07/10/2022: No major issues Improved sleep at night Less agitation and confusion No falls 07/09/2022: Doing well Slept better No pain reported No falls 07/08/2022: Doing well No pain Impulsive Confusion and agitation at night occurs 07/07/2022: Doing well Hallucinations every evening No new issues 07/06/2022: No major issues Remains impulsive Evening time he becomes agitated and requires antipsychotics and ativan Labs reviewed and liver improved 07/05/2022: Patient was agitated last evening requiring IM Ativan Improved overall Impulsive and a major fall risk 07/04/2022: Doing well LFT's elevated unsure of chronicity Patient improved overall No falls BM regimen maintained Review of Systems General: Fatigue, Malaise Objective Exam Vital Signs Vital Signs Date Time Temp Pulse Resp B/P (MAP) Pulse Ox O2 Delivery O2 Flow Rate FiO2 07/18/22 09:00 Room Air 07/18/22 07:30 37.0 110 20 132/80 (97) 98 Capillary Refill : General Appearance: No Apparent Distress, WD/WN, Thin HEENT: PERRL/EOMI, Normal ENT Inspection, Pharynx Normal Neck: Full Range of Motion, Normal Inspection, Non Tender, Supple, Carotid B ruit Respiratory: Chest Non Tender, Lungs Clear, Normal Breath Sounds, No Accessory Muscle Use, No Respiratory Distress Cardiovascular: Regular Rate, Rhythm, No Edema, No Gallop, No JVD, No Murmur, Normal Peripheral Pulses Gastrointestinal: Normal Bowel Sounds, No Organomegaly, No Pulsatile Mass, Non Tender, Soft Back: Normal Inspection, No CVA Tenderness, No Vertebral Tenderness Extremity: Normal Capillary Refill, Normal Inspection, Normal Range of Motion, Non Tender, No Calf Tenderness, No Pedal Edema Neurologic/Psychiatric: Alert, Oriented x3, sales representative graphic art II-XII Norm as Tested, Abnormal Gait, Aphasia, Depressed Affect, Motor Weakness Skin: Normal Color, Warm/Dry Lymphatic: No Adenopathy Results/Procedures Lab Patient resulted labs reviewed. FIM Transfers Therapy Code Descriptions/Definitions Functional [place] Measure: 0=Not Assessed/NA 4=Minimal Assistance 1=Total Assistance 5=Supervision or Setup 2=Maximal Assistance 6=Modified [place] 3=Moderate Assistance 7=Complete IndependenceSCALE: Activities may be completed with or without assistive devices. 9-Njbnlgahkv-pvydzxd completes the activity by him/herself with no assistance from a helper. 5-Set-up or Clean-up Assistance-helper sets up or cleans up; patient completes activity. [place] assists only prior to or following the activity. 4-Supervision or Touching Assistance-helper provides verbal cues and/or touching/steadying and/or contact guard assistance as patient completes activity. Assistance may be provided throughout the activity or intermittently. 3-Partial/Moderate Assistance-helper does LESS THAN HALF the effort. [place] lifts, holds or supports trunk or limbs, but provides less than half the effort. 2-Substantial/Maximal Assistance-helper does MORE THAN HALF the effort. [place] lifts or holds trunk or limbs and provides more than half the effort. 3-Eerevqxmp-asvivy does ALL the effort. Patient does none of the effort to complete the activity. Or, the assistance of 2 or more helpers is required for the patient to complete the activity. If activity was not attempted, code reason: 7-Patient Refused. 9-Not Applicable-not attempted and the patient did not perform the activity before the current illness, exacerbation or injury. 10-Not Attempted due to Environmental Limitations-(lack of equipment, weather restraints, etc.). 88-Not Attempted due to Medical Conditions or Safety Concerns. Roll Left to Right (QC): 6 Sit to Lying (QC): 6 Sit to Stand (QC): 5 Chair/Kcl-gs-Jpabv Xfer(QC): 4 Car Transfer (QC): 4 Gait Training Does the Patient Walk?: Yes Distance: 300, 50 Walk 10 feet (QC): 4 Walk 50 ft with 2 Turns(QC): 4 Walk 150 ft (QC): 4 Walking 10ft/uneven surface-QC: 4 Gait Persons Needed: 1 Gait Assistive Device: FWW Wheelchair Training Does the Pt Use a Wheelchair?: Yes Distance: 50' Wheel 50 ft with 2 turns (QC): 6 Wheel 150 ft (QC): 6 Type of Wheelchair: Manual Stair Training #of Steps: 4 1 Step (curb) (QC): 4 4 Steps (QC): 4 12 Steps (QC): 88 Balance Picking up an Object (QC): 3 (Min (A) of 1-2 with FWW and corporation lawyer with LOB to (L) after object was lifted off floor with corporation lawyer in (R) UE.) ADL-Treatment Eating (QC): 6 Oral Hygiene (QC): 6 Shower/Bathe Self (QC): 6 Upper Body Dressing (QC): 6 Lower Body Dressing (QC): 6 On/Off Footwear (QC): 6 Toileting Hygiene (QC): 6 Toilet Transfer (QC): 6 Assessment/Plan Assessment and Plan Assess & Plan/Chief Complaint Assessment: 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 Agitation prior telesitter at [place] but only becomes agitated in eveningtime here GERD Left leg pain HIV Elevated LFT's-improved Plan: Monitor closely OAC Aggressive therapy 07/04/2022: Monitor LFT's 07/05/2022: Impulsive 07/06/2022: Agitation treatment required 07/07/2022: Monitor closely 07/08/2022: Alter anti-psychotics 07/09/2022: Continue antipsychotics 07/10/2022: Monitor closely 07/11/2022: Monitor closely 07/12/2022: Monitor pain 07/13/2022: Improved status 07/14/2022: Ambulating now 07/15/2022: Monitor emotional status 07/16/2022: Await dispo 07/17/2022: Awaiting dispo 07/18/2022: Limit Nyquil to 30ml at night only (1) CVA (cerebral vascular accident) BREANA PATTON DO July 18, 2022 07:39
[2022-07-18] MEDS: DOCUSATE SODIUM 100 MG (COLACE) CAP PO SCH ×2 (08:52→19:51)
[2022-07-18] MEDS: APIXABAN 5 MG (ELIQUIS) TABLET PO SCH ×2 (08:52→20:23)
[2022-07-18] MEDS: PANTOPRAZOLE 40 MG (PROTONIX) TAB PO SCH (08:52)
[2022-07-18] MEDS: ASPIRIN 81 MG CHEW (CHILDREN'S ASA) PO SCH (08:52)
[2022-07-18] MEDS: FLUoxetine HCL 10 MG (PROzac) CAPSULE/TABLET PO SCH (08:52)
[2022-07-18] MEDS: OLANZapine 2.5 MG (ZyPREXA) TAB PO SCH ×2 (08:52→20:23)
[2022-07-18] MEDS: polyethylene glycoL POWDER 17 GM (MIRALAX) PACK PO SCH ×2 (08:53→19:23)
[2022-07-18] MEDS: SENNA W/DOCUSATE (SENOKOT S) TABLET PO SCH ×2 (08:53→19:51)
[2022-07-18] MEDS: DICLOFENAC 1% GEL 100 GM (VOLTAREN) TUBE TOP SCH ×4 (08:59→20:24)
[2022-07-18] MEDS: ALPRAZolam 0.25 MG (XANAX) TAB PO PRN ×2 (08:59→16:54)
[2022-07-18] MEDS: IBUPROFEN TABLET 200 MG TAB PO PRN ×2 (11:54→18:47)
[2022-07-18] MEDS ORDERED: PATIENT MAY USE OWN MED,SINGLE MED PO SCH (12:00)
[2022-07-18] MEDS: guaiFENesin/CODEINE (ROBITUSSIN AC) 10ML UDC PO PRN (17:09)
[2022-07-18] MEDS: MELATONIN 3 MG TABLET PO PRN (20:23)
[2022-07-18] MEDS: TEMAZEPAM 15 MG (RESTORIL) CAP PO SCH (20:24)
[2022-07-18 20:27] VITALS: BP 124/70
[2022-07-19] MEDS: guaiFENesin/CODEINE (ROBITUSSIN AC) 10ML UDC PO PRN ×4 (00:05→16:58)
[2022-07-19] MEDS: IBUPROFEN TABLET 200 MG TAB PO PRN ×3 (03:52→20:26)
[2022-07-19] MEDS: ALPRAZolam 0.25 MG (XANAX) TAB PO PRN ×3 (03:52→16:59)
[2022-07-19 07:30] VITALS: BP 132/82
--- NOTE | 2022-07-19 07:37 | PM&R Progress Note ---
Subjective HPI/CC On Admission Date Seen by Provider: July 19, 2022 Time Seen by Provider: 15:00 Subjective/Events-last exam 07/19/2022: Moving around well in wheelchair No falls No pain reported 07/18/2022: Agitation noted Wants to go home Needs AL or NHP Admitted to me that he took Nyquil which was brought in my his friend and he slept well last night Nurses were not aware of this and I specifically did no approve that when he asked for it yesterday since that could increase his confusion due to alcohol content and when nurse evaluated the bottle he was drinking it and almost had finished it Needs DC 07/17/2022: Doing well Awaiting dispo No falls Improved status 07/16/2022: Improved overall Awaiting dispo No falls but increased risk 07/15/2022: No major issues Can't live independently and having difficulties with this No falls No pain Impulsive 07/14/2022: Ambulating well No pain Impulsive 07/13/2022: No major issues Noted blood hue to his semen so I counseled him on sources No pain reported 07/12/2022: No major issues Boyfriend at bedside No falls No pain 07/11/2022: No major issues No falls No pain 07/10/2022: No major issues Improved sleep at night Less agitation and confusion No falls 07/09/2022: Doing well Slept better No pain reported No falls 07/08/2022: Doing well No pain Impulsive Confusion and agitation at night occurs 07/07/2022: Doing well Hallucinations every evening No new issues 07/06/2022: No major issues Remains impulsive Evening time he becomes agitated and requires antipsychotics and ativan Labs reviewed and liver improved 07/05/2022: Patient was agitated last evening requiring IM Ativan Improved overall Impulsive and a major fall risk 07/04/2022: Doing well LFT's elevated unsure of chronicity Patient improved overall No falls BM regimen maintained Review of Systems General: Fatigue, Malaise Objective Exam Vital Signs Vital Signs Date Time Temp Pulse Resp B/P (MAP) Pulse Ox O2 Delivery O2 Flow Rate FiO2 07/19/22 08:40 Room Air 07/19/22 07:30 36.6 98 20 132/82 (99) 98 Capillary Refill : General Appearance: No Apparent Distress, WD/WN, Thin HEENT: PERRL/EOMI, Normal ENT Inspection, Pharynx Normal Neck: Full Range of Motion, Normal Inspection, Non Tender, Supple, Carotid Bruit Respiratory: Chest Non Tender, Lungs Clear, Normal Breath Sounds, No Accessory Muscle Use, No Respiratory Distress Cardiovascular: Regular Rate, Rhythm, No Edema, No Gallop, No JVD, No Murmur, Normal Peripheral Pulses Gastrointestinal: Normal Bowel Sounds, No Organomegaly, No Pulsatile Mass, Non Tender, Soft Back: Normal Inspection, No CVA Tenderness, No Vertebral Tenderness Extremity: Normal Capillary Refill, Normal Inspection, Normal Range of Motion, Non Tender, No Calf Tenderness, No Pedal Edema Neurologic/Psychiatric: Alert, Oriented x3, men's locker room attendant II-XII Norm as Tested, Abnormal Gait, Aphasia, Depressed Affect, Motor Weakness Skin: Normal Color, Warm/Dry Lymphatic: No Adenopathy Results/Procedures Lab Patient resulted labs reviewed. FIM Transfers Therapy Code Descriptions/Definitions Functional [place] Measure: 0=Not Assessed/NA 4=Minimal Assistance 1=Total Assistance 5=Supervision or Setup 2=Maximal Assistance 6=Modified [place] 3=Moderate Assistance 7=Complete IndependenceSCALE: Activities may be completed with or without assistive devices. 1-Orahkfbmge-kpgtxgj completes the activity by him/herself with no assistance from a helper. 5-Set-up or Clean-up Assistance-helper sets up or cleans up; patient completes activity. [place] assists only prior to or following the activity. 4-Supervision or Touching Assistance-helper provides verbal cues and/or touching/steadying and/or contact guard assistance as patient completes activity. Assistance may be provided throughout the activity or intermittently. 3-Partial/Moderate Assistance-helper does LESS THAN HALF the effort. [place] lifts, holds or supports trunk or limbs, but provides less than half the effort. 2-Substantial/Maximal Assistance-helper does MORE THAN HALF the effort. [place] lifts or holds trunk or limbs and provides more than half the effort. 1-Klgejfdke-ooofol does ALL the effort. Patient does none of the effort to complete the activity. Or, the assistance of 2 or more helpers is required for the patient to complete the activity. If activity was not attempted, code reason: 7-Patient Refused. 9-Not Applicable-not attempted and the patient did not perform the activity before the current illness, exacerbation or injury. 10-Not Attempted due to Environmental Limitations-(lack of equipment, weather restraints, etc.). 88-Not Attempted due to Medical Conditions or Safety Concerns. Roll Left to Right (QC): 6 Sit to Lying (QC): 6 Sit to Stand (QC): 5 Chair/Yay-hk-Adeyi Xfer(QC): 4 Car Transfer (QC): 4 Gait Training Does the Patient Walk?: Yes Distance: 300, 50 Walk 10 feet (QC): 4 Walk 50 ft with 2 Turns(QC): 4 Walk 150 ft (QC): 4 Walking 10ft/uneven surface-QC: 4 Gait Persons Needed: 1 Gait Assistive Device: FWW Wheelchair Training Does the Pt Use a Wheelchair?: Yes Distance: 50' Wheel 50 ft with 2 turns (QC): 6 Wheel 150 ft (QC): 6 Type of Wheelchair: Manual Stair Training #of Steps: 4 1 Step (curb) (QC): 4 4 Steps (QC): 4 12 Steps (QC): 88 Balance Picking up an Object (QC): 3 (Min (A) of 1-2 with FWW and helper shear operator with LOB to (L) after object was lifted off floor with helper shear operator in (R) UE.) ADL-Treatment Eating (QC): 6 Oral Hygiene (QC): 6 Shower/Bathe Self (QC): 6 Upper Body Dressing (QC): 6 Lower Body Dressing (QC): 6 On/Off Footwear (QC): 6 Toileting Hygiene (QC): 6 Toilet Transfer (QC): 6 Assessment/Plan Assessment and Plan Assess & Plan/Chief Complaint Assessment: 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 Agitation prior telesitter at [place] but only becomes agitated in eveningtime here GERD Left leg pain HIV Elevated LFT's-improved Plan: Monitor closely OAC Aggressive therapy 07/04/2022: Monitor LFT's 07/05/2022: Impulsive 07/06/2022: Agitation treatment required 07/07/2022: Monitor closely 07/08/2022: Alter anti-psychotics 07/09/2022: Continue antipsychotics 07/10/2022: Monitor closely 07/11/2022: Monitor closely 07/12/2022: Monitor pain 07/13/2022: Improved status 07/14/2022: Ambulating now 07/15/2022: Monitor emotional status 07/16/2022: Await dispo 07/17/2022: Awaiting dispo 07/18/2022: Limit Nyquil to 30ml at night only 07/19/2022: Needs dispo (1) CVA (cerebral vascular accident) BREANA PATTON DO July 19, 2022 07:37
[2022-07-19] MEDS: OLANZapine 2.5 MG (ZyPREXA) TAB PO SCH ×2 (08:49→20:25)
[2022-07-19] MEDS: APIXABAN 5 MG (ELIQUIS) TABLET PO SCH ×2 (08:49→20:25)
[2022-07-19] MEDS: ACETAMINOPHEN 325 MG TABLET PO PRN ×2 (08:49→16:58)
[2022-07-19] MEDS: ASPIRIN 81 MG CHEW (CHILDREN'S ASA) PO SCH (08:49)
[2022-07-19] MEDS: PANTOPRAZOLE 40 MG (PROTONIX) TAB PO SCH (08:49)
[2022-07-19] MEDS: FLUoxetine HCL 10 MG (PROzac) CAPSULE/TABLET PO SCH (08:49)
[2022-07-19] MEDS: polyethylene glycoL POWDER 17 GM (MIRALAX) PACK PO SCH ×2 (08:51→20:27)
[2022-07-19] MEDS: SENNA W/DOCUSATE (SENOKOT S) TABLET PO SCH ×2 (08:51→20:25)
[2022-07-19] MEDS: DOCUSATE SODIUM 100 MG (COLACE) CAP PO SCH ×2 (08:51→20:25)
[2022-07-19] MEDS: DICLOFENAC 1% GEL 100 GM (VOLTAREN) TUBE TOP SCH ×4 (08:51→20:27)
[2022-07-19] MEDS: LIDOCAINE 4% (SALONPAS) PATCH TP PRN (12:03)
[2022-07-19] MEDS: MELATONIN 3 MG TABLET PO PRN (20:25)
[2022-07-19] MEDS: TEMAZEPAM 15 MG (RESTORIL) CAP PO SCH (20:26)
[2022-07-19 20:40] VITALS: BP 135/82
[2022-07-20] MEDS: IBUPROFEN TABLET 200 MG TAB PO PRN ×3 (04:33→18:15)
[2022-07-20] MEDS: ACETAMINOPHEN 325 MG TABLET PO PRN ×2 (04:33→14:15)
[2022-07-20] MEDS: guaiFENesin/CODEINE (ROBITUSSIN AC) 10ML UDC PO PRN ×4 (04:33→18:15)
--- NOTE | 2022-07-20 05:22 | PM&R Progress Note ---
Subjective HPI/CC On Admission Date Seen by Provider: July 20, 2022 Time Seen by Provider: 08:30 Subjective/Events-last exam 07/20/2022: Doing well Wants DC 07/19/2022: Moving around well in wheelchair No falls No pain reported 07/18/2022: Agitation noted Wants to go home Needs AL or NHP Admitted to me that he took Nyquil which was brought in my his friend and he slept well last night Nurses were not aware of this and I specifically did no approve that when he asked for it yesterday since that could increase his confusion due to alcohol content and when nurse evaluated the bottle he was drinking it and almost had finished it Needs DC 07/17/2022: Doing well Awaiting dispo No falls Improved status 07/16/2022: Improved overall Awaiting dispo No falls but increased risk 07/15/2022: No major issues Can't live independently and having difficulties with this No falls No pain Impulsive 07/14/2022: Ambulating well No pain Impulsive 07/13/2022: No major issues Noted blood hue to his semen so I counseled him on sources No pain reported 07/12/2022: No major issues Boyfriend at bedside No falls No pain 07/11/2022: No major issues No falls No pain 07/10/2022: No major issues Improved sleep at night Less agitation and confusion No falls 07/09/2022: Doing well Slept better No pain reported No falls 07/08/2022: Doing well No pain Impulsive Confusion and agitation at night occurs 07/07/2022: Doing well Hallucinations every evening No new issues 07/06/2022: No major issues Remains impulsive Evening time he becomes agitated and requires antipsychotics and ativan Labs reviewed and liver improved 07/05/2022: Patient was agitated last evening requiring IM Ativan Improved overall Impulsive and a major fall risk 07/04/2022: Doing well LFT's elevated unsure of chronicity Patient improved overall No falls BM regimen maintained Review of Systems General: Fatigue, Malaise Neurological: Weakness Objective Exam Vital Signs Vital Signs Date Time Temp Pulse Resp B/P (MAP) Pulse Ox O2 Delivery O2 Flow Rate FiO2 07/20/22 08:54 Room Air 07/20/22 08:36 36.3 103 16 138/94 (109) 97 Capillary Refill : General Appearance: No Apparent Distress, WD/WN, Thin HEENT: PERRL/EOMI, Normal ENT Inspection, Pharynx Normal Neck: Full Range of Motion, Normal Inspection, Non Tender, Supple, Carotid Bruit Respiratory: Chest Non Tender, Lungs Clear, Normal Breath Sounds, No Accessory Muscle Use, No Respiratory Distress Cardiovascular: Regular Rate, Rhythm, No Edema, No Gallop, No JVD, No Murmur, Normal Peripheral Pulses Gastrointestinal: Normal Bowel Sounds, No Organomegaly, No Pulsatile Mass, Non Tender, Soft Back: Normal Inspection, No CVA Tenderness, No Vertebral Tenderness Extremity: Normal Capillary Refill, Normal Inspection, Normal Range of Motion, Non Tender, No Calf Tenderness, No Pedal Edema Neurologic/Psychiatric: Alert, Oriented x3, heel gummer II-XII Norm as Tested, Abnormal Gait, Aphasia, Depressed Affect, Motor Weakness Skin: Normal Color, Warm/Dry Lymphatic: No Adenopathy Results/Procedures Lab Patient resulted labs reviewed. FIM Transfers Therapy Code Descriptions/Definitions Functional [place] Measure: 0=Not Assessed/NA 4=Minimal Assistance 1=Total Assistance 5=Supervision or Setup 2=Maximal Assistance 6=Modified [place] 3=Moderate Assistance 7=Complete IndependenceSCALE: Activities may be completed with or without assistive devices. 6-Dvuqknlmet-aijalpu completes the activity by him/herself with no assistance from a helper. 5-Set-up or Clean-up Assistance-helper sets up or cleans up; patient completes activity. [place] assists only prior to or following the activity. 4-Supervision or Touching Assistance-helper provides verbal cues and/or touching/steadying and/or contact guard assistance as patient completes activity. Assistance may be provided throughout the activity or intermittently. 3-Partial/Moderate Assistance-helper does LESS THAN HALF the effort. [place] lifts, holds or supports trunk or limbs, but provides less than half the effort. 2-Substantial/Maximal Assistance-helper does MORE THAN HALF the effort. [place] lifts or holds trunk or limbs and provides more than half the effort. 5-Frnuchmet-rlzgex does ALL the effort. Patient does none of the effort to complete the activity. Or, the assistance of 2 or more helpers is required for the patient to complete the activity. If activity was not attempted, code reason: 7-Patient Refused. 9-Not Applicable-not attempted and the patient did not perform the activity before the current illness, exacerbation or injury. 10-Not Attempted due to Environmental Limitations-(lack of equipment, weather restraints, etc.). 88-Not Attempted due to Medical Conditions or Safety Concerns. Roll Left to Right (QC): 6 Sit to Lying (QC): 6 Sit to Stand (QC): 5 Chair/Azt-hl-Njlnt Xfer(QC): 4 Car Transfer (QC): 4 Gait Training Does the Patient Walk?: Yes Distance: 300, 50 Walk 10 feet (QC): 4 Walk 50 ft with 2 Turns(QC): 4 Walk 150 ft (QC): 4 Walking 10ft/uneven surface-QC: 4 Gait Persons Needed: 1 Gait Assistive Device: FWW Wheelchair Training Does the Pt Use a Wheelchair?: Yes Distance: 50' Wheel 50 ft with 2 turns (QC): 6 Wheel 150 ft (QC): 6 Type of Wheelchair: Manual Stair Training #of Steps: 4 1 Step (curb) (QC): 4 4 Steps (QC): 4 12 Steps (QC): 88 Balance Picking up an Object (QC): 3 (Min (A) of 1-2 with FWW and shipping receiving manager with LOB to (L) after object was lifted off floor with shipping receiving manager in (R) UE.) ADL-Treatment Eating (QC): 6 Oral Hygiene (QC): 6 Shower/Bathe Self (QC): 6 Upper Body Dressing (QC): 6 Lower Body Dressing (QC): 6 On/Off Footwear (QC): 6 Toileting Hygiene (QC): 6 Toilet Transfer (QC): 6 Assessment/Plan Assessment and Plan Assess & Plan/Chief Complaint Assessment: 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 Agitation prior telesitter at [place] but only becomes agitated in eveningtime here GERD Left leg pain HIV Elevated LFT's-improved Plan: Monitor closely OAC Aggressive therapy 07/04/2022: Monitor LFT's 07/05/2022: Impulsive 07/06/2022: Agitation treatment required 07/07/2022: Monitor closely 07/08/2022: Alter anti-psychotics 07/09/2022: Continue antipsychotics 07/10/2022: Monitor closely 07/11/2022: Monitor closely 07/12/2022: Monitor pain 07/13/2022: Improved status 07/14/2022: Ambulating now 07/15/2022: Monitor emotional status 07/16/2022: Await dispo 07/17/2022: Awaiting dispo 07/18/2022: Limit Nyquil to 30ml at night only 07/19/2022: Needs dispo 07/20/2022: DC? (1) CVA (cerebral vascular accident) BREANA PATTON DO July 20, 2022 05:22
[2022-07-20] MEDS: DOCUSATE SODIUM 100 MG (COLACE) CAP PO SCH ×2 (08:03→21:52)
[2022-07-20] MEDS: SENNA W/DOCUSATE (SENOKOT S) TABLET PO SCH ×2 (08:03→21:52)
[2022-07-20] MEDS: polyethylene glycoL POWDER 17 GM (MIRALAX) PACK PO SCH ×2 (08:03→21:52)
[2022-07-20] MEDS: APIXABAN 5 MG (ELIQUIS) TABLET PO SCH ×2 (08:08→21:47)
[2022-07-20] MEDS: FLUoxetine HCL 10 MG (PROzac) CAPSULE/TABLET PO SCH (08:08)
[2022-07-20] MEDS: ASPIRIN 81 MG CHEW (CHILDREN'S ASA) PO SCH (08:08)
[2022-07-20] MEDS: PANTOPRAZOLE 40 MG (PROTONIX) TAB PO SCH (08:08)
[2022-07-20] MEDS: OLANZapine 2.5 MG (ZyPREXA) TAB PO SCH ×2 (08:08→21:47)
[2022-07-20] MEDS: DICLOFENAC 1% GEL 100 GM (VOLTAREN) TUBE TOP SCH ×4 (08:13→21:53)
[2022-07-20 08:36] VITALS: BP 138/94
--- NOTE | 2022-07-20 10:24 | Occupational Ther Daily Note ---
OT Current Status-Daily Note Subjective Pt alert, sitting in recliner. Pt agrees to therapy. No c/o pain. Pt very anxious about going home and working on FWW skills to be safe at home. Mental Status/Objective Patient Orientation: Person, Place, Time, Situation ADL-Treatment Pt agrees to shower. Using shower bench, grabbar and hand held shower pt completes shower by self. Pt retrieves clothing at w/c level then completes all dressing independently. Sitting at sink, pt completes oral care. Pt working on using FWW to transfer on/off toilet with supervision. Toileting independent with FWW and w/c. There are safety concerns due to pt's focus when completing task in standing, pt is improving with this. Pt able to complete cooking activity standing and sitting when required, independently. Therapy Code Descriptions/Definitions Functional [place] Measure: 0=Not Assessed/NA 4=Minimal Assistance 1=Total Assistance 5=Supervision or Setup 2=Maximal Assistance 6=Modified [place] 3=Moderate Assistance 7=Complete IndependenceSCALE: Activities may be completed with or without assistive devices. 6-Kdlceoyfss-vmbhjlz completes the activity by him/herself with no assistance from a helper. 5-Set-up or Clean-up Assistance-helper sets up or cleans up; patient completes activity. [place] assists only prior to or following the activity. 4-Supervision or Touching Assistance-helper provides verbal cues and/or touching/steadying and/or contact guard assistance as patient completes activity. Assistance may be provided throughout the activity or intermittently. 3-Partial/Moderate Assistance-helper does LESS THAN HALF the effort. [place] lifts, holds or supports trunk or limbs, but provides less than half the effort. 2-Substantial/Maximal Assistance-helper does MORE THAN HALF the effort. [place] lifts or holds trunk or limbs and provides more than half the effort. 0-[place]-gucucp does ALL the effort. Patient does none of the effort to complete the activity. Or, the assistance of 2 or more helpers is required for the patient to complete the activity. If activity was not attempted, code reason: 7-Patient Refused. 9-Not Applicable-not attempted and the patient did not perform the activity before the current illness, exacerbation or injury. 10-Not Attempted due to Environmental Limitations-(lack of equipment, weather restraints, etc.). 88-Not Attempted due to Medical Conditions or Safety Concerns. Eating (QC): 6 Oral Hygiene (QC): 6 Shower/Bathe Self (QC): 6 Upper Body Dressing (QC): 6 Lower Body Dressing (QC): 6 On/Off Footwear: 6 Toileting Hygiene (QC): 6 Toilet Transfer (QC): 6 (independent with w/c) Other Treatment Pt ambulating using FWW throughout 2nd floor with 2 recovery breaks, no LOB noted. Pt working on using FWW for toilet transfer and shower transfers, pt has no LOB when completing though safety concerns due to intermittent focusing difficulties. Pt demonstrated independence with laundry at w/c level. After session, pt lying in bed with call light/phone in reach. All needs met in room. BIMS CAM BIMS Expression of Ideas and Wants: Without Difficulty Understanding Verbal Content: Understands Brief Interview/Mental Status: Yes IRF CAROL BIMS: IRF CAROL BIMS Response (Comments) Value Repitition of Three Words Three 3 Recalls Socks Yes, No Cue Required 2 Recalls Blue Yes, No Cue Required 2 Recalls Bed Yes, No Cue Required 2 Year Correct 3 Month Accurate Within 5 Days 2 Day Correct 1 Total 15 Patient Normally Able to Recal: Current Session, Location of own room, Staff Names and faces, That he/she in a [facility] Should Staff Asses. Mental St.: Yes CAM Mental Status Change/Baseline: 0 Inattention: 0 Disorganized thinkin Altered level of consciousness: 0 OT Short Term Goals Short Term Goals Time Frame: July 15, 2022 Upper body dressin Lower body dressin Putting on/taking off footwear: 5 OT Jail Goals Jail Goals Time Frame: July 24, 2022 Acute change in mental status: 0 Inattention: 0 Disorganized thinkin Altered level of consciousness: 0 Eating (QC): 6 (met) Oral Hygiene (QC): 6 (met) Toileting Hygiene (QC): 6 (met) Shower/Bathe Self (QC): 6 (met) Upper Body Dressing (QC): 6 (met) Lower Body Dressing (QC): 6 (met) On/Off Footwear (QC): 6 (met) Additional Goals: 1-Demonstrate ADL Tasks, 2-Verbalize Understanding, 3- ImproveStrength/[place] 1=Demonstrate adherence to instructed precautions during ADL tasks. 2=Patient will verbalize/demonstrate understanding of assistive devices/modifications for ADL. 3=Patient will improve strength/tolerance for activity to enable patient to perform ADL's. OT Education/Plan Problem List/Assessment Assessment: Decreased Safety Aware Discharge Recommendations Plan/Recommendations: Continue POC Treatment Plan/Plan of Care Patient would benefit from OT for education, treatment and training to promote independence in ADL's, mobility, safety and/or upper extremity function for ADL's. Plan of Care: ADL Retraining, Functional Mobility, Group Exercise/Act as Ind, UE Funct Exercise/Act, UE Neuromus Re-Ed/Coord Treatment Duration: July 24, 2022 Frequency: At least 5 of 7 days/Wk (IRF) Estimated Hrs Per Day: 1.5 hours per day Agreement: Yes Rehab Potential: Fair Time Start Time: 09:00 Stop Time: 10:30 DATE: July 20, 2022 Total Time Billed (hr/min): 90 Billed Treatment Time 1 visit-ADL 4 (60 min) FA 2 (30 min) EDWIN HAUSER July 20, 2022 10:24
--- NOTE | 2022-07-20 10:49 | Physical Therapy Daily Note ---
PT Daily Note-Current Subjective Pt reports he is doing well today and is agreeable to treatment. Denies pain Pain Numeric Pain Scale: 0-No Pain Location: No Pain Reported Section J - Health Conditions 1. Rarely or not at all 2. Occasionally 3. Frequently 4. Almost constantly 8. Unable to answer Pain Effect on Sleep: 1 Pain Interference with Therapy: 1 Pain Interference w/Day-to-Day: 1 Transfers SCALE: Activities may be completed with or without assistive devices. 7-Onerbieelm-plludna completes the activity by him/herself with no assistance from a helper. 5-Set-up or Clean-up Assistance-helper sets up or cleans up; patient completes activity. [place] assists only prior to or following the activity. 4-Supervision or Touching Assistance-helper provides verbal cues and/or touching/steadying and/or contact guard assistance as patient completes activity. Assistance may be provided throughout the activity or intermittently. 3-Partial/Moderate Assistance-helper does LESS THAN HALF the effort. [place] lifts, holds or supports trunk or limbs, but provides less than half the effort. 2-Substantial/Maximal Assistance-helper does MORE THAN HALF the effort. [place] lifts or holds trunk or limbs and provides more than half the effort. 8-Ulguungfi-dhpvfq does ALL the effort. Patient does none of the effort to compl ete the activity. Or, the assistance of 2 or more helpers is required for the patient to complete the activity. If activity was not attempted, code reason: 7-Patient Refused. 9-Not Applicable-not attempted and the patient did not perform the activity before the current illness, exacerbation or injury. 10-Not Attempted due to Environmental Limitations-(lack of equipment, weather restraints, etc.). 88-Not Attempted due to Medical Conditions or Safety Concerns. Roll Left & Right (QC): 6 Sit to Lying (QC): 6 Lying to Sitting/Side of Bed(Q: 6 Sit to Stand (QC): 6 Chair/Dxq-hs-Yiayn Xfer(QC): 6 Toilet Transfer (QC): 6 Car Transfer (QC): 6 Weight Bearing Full Weight Bearing Weight Bearing/Tolerated Foot drop (L) Gait Training Does the Patient Walk?: Yes Walk 10 feet (QC): 4 (SBA ) Walk 50 ft with 2 Turns(QC): 4 (SBA ) Walk 150 ft (QC): 4 (SBA ) Walking 10ft/uneven surface-QC: 4 (SBA ) Gait Persons Needed: 1 Gait Assistive Device: FWW Wheelchair Training Does the Pt Use a Wheelchair?: Yes Wheel 50 ft with 2 turns (QC): 6 Wheel 150 ft (QC): 6 Type of Wheelchair: Manual Stair Training Stair Training: Handrails/: 2 handrails #of Steps: 12 1 Step (curb) (QC): 4 (SBA ) 4 Steps (QC): 4 (SBA ) 12 Steps (QC): 4 (SBA ) Stairs: Pattern: Step to Balance Picking up an Object (QC): 6 (Mod I with iuss acoustic analyst) Treatments Pt is Mod I with bed mobility and all functional transfers. Pt ambulated 300ft, 150ft, and 100ft with the FWW and SBA (for improved safety). Pt is Mod I with w/c mobility. Pt negotiated 12 steps with B handrails and SBA. Pt was able to pickling drum operator an object from the floor with the iuss acoustic analyst and Mod I. Pt completed sit to stand x 10 reps with Mod I, good technique, and good form. Assessment Current Status: Good Progress Pt tolerated PT well, has made good progress, and has met all long-term goals. PT Media Professional Goals Media Professional Goals PT Mcfp Goals Time Frame: July 20, 2022 Roll Left & Right (QC): 6 Sit to Lying (QC): 6 Lying-Sitting on Side/Bed(QC): 6 Sit to Stand (QC): 5 Chair/Hsr-cb-Vzrkd Xfer(QC): 5 (with FWW) Toilet Transfer (QC): 5 (with grab bar or FWW) Car Transfer (QC): 5 (with FWW) Does the Patient Walk: Yes Walk 10 feet (QC): 4 (CGA with FWW and (L) AFO) Walk 50ft with 2 Turns (QC): 4 (CGA with FWW and (L) AFO) Walk 150 ft (QC): 4 (CGA with FWW and AFO) Walking 10ft on Uneven Surface: 4 (CGA with FWW and (L) AFO) 1 Step (curb) (QC): 4 (with FWW) 4 Steps (QC): 3 (min (A) with rails) 12 Steps (QC): 9 Picking up an Object (QC): 5 (with FWW and iuss acoustic analyst) Does the Pt use WC or Scooter?: Yes Wheel 50 feet with 2 turns (QC: 6 Type: Manual Wheel 150 feet: 6 Type: Manual PT Plan Problem List Problem List: Activity Tolerance, Functional Strength, Safety, Balance, Gait Treatment/Plan Treatment Plan: Continue Plan of Care Treatment Plan: Bed Mobility, Education, Functional Activity [place], Functional Strength, Group Therapy, Gait, Safety, Therapeutic Exercise, Transfers Treatment Duration: July 20, 2022 Frequency: At least 5 of 7 days/Wk (IRF) Estimated Hrs Per Day: 1.5 hours per day Patient and/or Family Agrees t: Yes Safety Risks/Education Patient Education: Gait Training, Transfer Techniques, Safety Issues Teaching Recipient: Patient Response to Teaching: Verbalize Understanding, Return Demonstration, Reinforcement Needed Discharge Recommendations Equpiment Recommendations-D/C: Front Wheeled Walker, Shower Chair, Manual Whee lchair Barriers to Progress safety and placement Target Placement TBD Time Time In: 800 Time Out: 900 DATE: July 20, 2022 Total Billed Treatment Time: 60 Total Billed Treatment 60 min 1 visit GT x 2 FA x 2 HELDER ALEJANDRO PT July 20, 2022 10:49
[2022-07-20] MEDS: ALPRAZolam 0.25 MG (XANAX) TAB PO PRN ×2 (12:10→21:52)
--- NOTE | 2022-07-20 14:10 | Physical Therapy Daily Note ---
PT Daily Note-Current Subjective Pt is upset this afternoon, secondary to no being able to find placement upon d/c. Pain Numeric Pain Scale: 0-No Pain Location: No Pain Reported Section J - Health Conditions 1. Rarely or not at all 2. Occasionally 3. Frequently 4. Almost constantly 8. Unable to answer Pain Effect on Sleep: 1 Pain Interference with Therapy: 1 Pain Interference w/Day-to-Day: 1 Transfers SCALE: Activities may be completed with or without assistive devices. 5-Saqlxycqno-klqgpps completes the activity by him/herself with no assistance from a helper. 5-Set-up or Clean-up Assistance-helper sets up or cleans up; patient completes activity. [place] assists only prior to or following the activity. 4-Supervision or Touching Assistance-helper provides verbal cues and/or touching/steadying and/or contact guard assistance as patient completes activity. Assistance may be provided throughout the activity or intermittently. 3-Partial/Moderate Assistance-helper does LESS THAN HALF the effort. [place] lifts, holds or supports trunk or limbs, but provides less than half the effort. 2-Substantial/Maximal Assistance-helper does MORE THAN HALF the effort. [place] lifts or holds trunk or limbs and provides more than half the effort. 2-Wteutmrwj-ulqopo does ALL the effort. Patient does none of the effort to complete the activity. Or, the assistance of 2 or more helpers is required for the patient to complete the activity. If activity was not attempted, code reason: 7-Patient Refused. 9-Not Applicable-not attempted and the patient did not perform the activity before the current illness, exacerbation or injury. 10-Not Attempted due to Environmental Limitations-(lack of equipment, weather restraints, etc.). 88-Not Attempted due to Medical Conditions or Safety Concerns. Sit to Stand (QC): 6 Chair/Ulv-uv-Rkrzq Xfer(QC): 6 Weight Bearing Full Weight Bearing Weight Bearing/Tolerated Foot drop (L) Gait Training Does the Patient Walk?: Yes Walk 10 feet (QC): 4 Walk 50 ft with 2 Turns(QC): 4 Walk 150 ft (QC): 4 Gait Persons Needed: 1 Gait Assistive Device: FWW Wheelchair Training Does the Pt Use a Wheelchair?: Yes Wheel 50 ft with 2 turns (QC): 6 Wheel 150 ft (QC): 6 Type of Wheelchair: Manual Treatments Pt completed functional transfers with Mod I. Pt ambulated 150ft x 4 with the FWW and SBA/CGA. Assessment Current Status: Good Progress Pt tolerated well, but was impulsive at times, secondary to being upset about placement upon d/c. PT Group Home Goals Crematorium Operator Goals PT Crematorium Operator Goals Time Frame: July 20, 2022 Roll Left & Right (QC): 6 Sit to Lying (QC): 6 Lying-Sitting on Side/Bed(QC): 6 Sit to Stand (QC): 5 Chair/Gtb-pd-Mwxfd Xfer(QC): 5 (with FWW) Toilet Transfer (QC): 5 (with grab bar or FWW) Car Transfer (QC): 5 (with FWW) Does the Patient Walk: Yes Walk 10 feet (QC): 4 (CGA with FWW and (L) AFO) Walk 50ft with 2 Turns (QC): 4 (CGA with FWW and (L) AFO) Walk 150 ft (QC): 4 (CGA with FWW and AFO) Walking 10ft on Uneven Surface: 4 (CGA with FWW and (L) AFO) 1 Step (curb) (QC): 4 (with FWW) 4 Steps (QC): 3 (min (A) with rails) 12 Steps (QC): 9 Picking up an Object (QC): 5 (with FWW and family reunification specialist) Does the Pt use WC or Scooter?: Yes Wheel 50 feet with 2 turns (QC: 6 Type: Manual Wheel 150 feet: 6 Type: Manual PT Plan Problem List Problem List: Activity Tolerance, Functional Strength, Balance, Gait Treatment/Plan Treatment Plan: Continue Plan of Care Treatment Plan: Bed Mobility, Education, Functional Activity [place], Functional Strength, Group Therapy, Gait, Safety, Therapeutic Exercise, Transfers Treatment Duration: July 20, 2022 Frequency: At least 5 of 7 days/Wk (IRF) Estimated Hrs Per Day: 1.5 hours per day Patient and/or Family Agrees t: Yes Safety Risks/Education Patient Education: Gait Training, Transfer Techniques Teaching Recipient: Patient Teaching Methods: Demonstration, Discussion Response to Teaching: Verbalize Understanding, Return Demonstration, Reinforcement Needed Discharge Recommendations Equpiment Recommendations-D/C: Front Wheeled Walker, Shower Chair, Manual Wheelchair Barriers to Progress safety/placement Target Placement TBD Time Time In: 1300 Time Out: 1330 DATE: July 20, 2022 Total Billed Treatment Time: 30 Total Billed Treatment 30 min 1 visit GT x 2 HELDER ALEJANDRO PT July 20, 2022 14:10
[2022-07-20 21:00] VITALS: BP 120/76
[2022-07-20] MEDS: DIPHENHYDRAMINE 25 MG PO PRN (21:47)
[2022-07-20] MEDS: TEMAZEPAM 15 MG (RESTORIL) CAP PO SCH (21:47)
[2022-07-21] MEDS: guaiFENesin/CODEINE (ROBITUSSIN AC) 10ML UDC PO PRN ×4 (00:51→16:36)
[2022-07-21] MEDS: IBUPROFEN TABLET 200 MG TAB PO PRN ×3 (00:57→16:37)
--- NOTE | 2022-07-21 05:14 | PM&R Progress Note ---
Subjective HPI/CC On Admission Date Seen by Provider: July 21, 2022 Time Seen by Provider: 09:00 Subjective/Events-last exam 07/21/2022: Ready for DC Dispo pending 07/20/2022: Doing well Wants DC 07/19/2022: Moving around well in wheelchair No falls No pain reported 07/18/2022: Agitation noted Wants to go home Needs AL or NHP Admitted to me that he took Nyquil which was brought in my his friend and he slept well last night Nurses were not aware of this and I specifically did no approve that when he asked for it yesterday since that could increase his confusion due to alcohol content and when nurse evaluated the bottle he was drinking it and almost had finished it Needs DC 07/17/2022: Doing well Awaiting dispo No falls Improved status 07/16/2022: Improved overall Awaiting dispo No falls but increased risk 07/15/2022: No major issues Can't live independently and having difficulties with this No falls No pain Impulsive 07/14/2022: Ambulating well No pain Impulsive 07/13/2022: No major issues Noted blood hue to his semen so I counseled him on sources No pain reported 07/12/2022: No major issues Boyfriend at bedside No falls No pain 07/11/2022: No major issues No falls No pain 07/10/2022: No major issues Improved sleep at night Less agitation and confusion No falls 07/09/2022: Doing well Slept better No pain reported No falls 07/08/2022: Doing well No pain Impulsive Confusion and agitation at night occurs 07/07/2022: Doing well Hallucinations every evening No new issues 07/06/2022: No major issues Remains impulsive Evening time he becomes agitated and requires antipsychotics and ativan Labs reviewed and liver improved 07/05/2022: Patient was agitated last evening requiring IM Ativan Improved overall Impulsive and a major fall risk 07/04/2022: Doing well LFT's elevated unsure of chronicity Patient improved overall No falls BM regimen maintained Review of Systems General: Fatigue, Malaise Objective Exam Vital Signs Vital Signs Date Time Temp Pulse Resp B/P (MAP) Pulse Ox O2 Delivery O2 Flow Rate FiO2 07/21/22 20:28 36.9 110 18 140/89 (106) 97 Room Air Capillary Refill : General Appearance: No Apparent Distress, WD/WN, Thin HEENT: PERRL/EOMI, Normal ENT Inspection, Pharynx Normal Neck: Full Range of Motion, Normal Inspection, Non Tender, Supple, Carotid Bruit Respiratory: Chest Non Tender, Lungs Clear, Normal Breath Sounds, No Accessory Muscle Use, No Respiratory Distress Cardiovascular: Regular Rate, Rhythm, No Edema, No Gallop, No JVD, No Murmur, Normal Peripheral Pulses Gastrointestinal: Normal Bowel Sounds, No Organomegaly, No Pulsatile Mass, Non Tender, Soft Back: Normal Inspection, No CVA Tenderness, No Vertebral Tenderness Extremity: Normal Capillary Refill, Normal Inspection, Normal Range of Motion, Non Tender, No Calf Tenderness, No Pedal Edema Neurologic/Psychiatric: Alert, Oriented x3, packaging associate II-XII Norm as Tested, Abnormal Gait, Aphasia, Depressed Affect, Motor Weakness Skin: Normal Color, Warm/Dry Lymphatic: No Adenopathy Results/Procedures Lab Patient resulted labs reviewed. FIM Transfers Therapy Code Descriptions/Definitions Functional [place] Measure: 0=Not Assessed/NA 4=Minimal Assistance 1=Total Assistance 5=Supervision or Setup 2=Maximal Assistance 6=Modified [place] 3=Moderate Assistance 7=Complete IndependenceSCALE: Activities may be completed with or without assistive devices. 9-Mkxvnkzunp-yxoawnd completes the activity by him/herself with no assistance from a helper. 5-Set-up or Clean-up Assistance-helper sets up or cleans up; patient completes activity. [place] assists only prior to or following the activity. 4-Supervision or Touching Assistance-helper provides verbal cues and/or touching/steadying and/or contact guard assistance as patient completes act ivity. Assistance may be provided throughout the activity or intermittently. 3-Partial/Moderate Assistance-helper does LESS THAN HALF the effort. [place] lifts, holds or supports trunk or limbs, but provides less than half the effort. 2-Substantial/Maximal Assistance-helper does MORE THAN HALF the effort. [place] lifts or holds trunk or limbs and provides more than half the effort. 1-Bweyyccgg-earjhj does ALL the effort. Patient does none of the effort to complete the activity. Or, the assistance of 2 or more helpers is required for the patient to complete the activity. If activity was not attempted, code reason: 7-Patient Refused. 9-Not Applicable-not attempted and the patient did not perform the activity before the current illness, exacerbation or injury. 10-Not Attempted due to Environmental Limitations-(lack of equipment, weather restraints, etc.). 88-Not Attempted due to Medical Conditions or Safety Concerns. Roll Left to Right (QC): 6 Sit to Lying (QC): 6 Sit to Stand (QC): 6 Chair/Acv-qt-Jhvbk Xfer(QC): 6 Car Transfer (QC): 6 Gait Training Does the Patient Walk?: Yes Distance: 300, 50 Walk 10 feet (QC): 4 Walk 50 ft with 2 Turns(QC): 4 Walk 150 ft (QC): 4 Walking 10ft/uneven surface-QC: 4 (SBA ) Gait Persons Needed: 1 Gait Assistive Device: FWW Wheelchair Training Does the Pt Use a Wheelchair?: Yes Distance: 50' Wheel 50 ft with 2 turns (QC): 6 Wheel 150 ft (QC): 6 Type of Wheelchair: Manual Stair Training Stair Training: Handrails/: 2 handrails #of Steps: 12 1 Step (curb) (QC): 4 (SBA ) 4 Steps (QC): 4 (SBA ) 12 Steps (QC): 4 (SBA ) Stairs: Pattern: Step to Balance Picking up an Object (QC): 6 (Mod I with hearing screen coordinator) ADL-Treatment Eating (QC): 6 Oral Hygiene (QC): 6 Shower/Bathe Self (QC): 6 Upper Body Dressing (QC): 6 Lower Body Dressing (QC): 6 On/Off Footwear (QC): 6 Toileting Hygiene (QC): 6 Toilet Transfer (QC): 6 (independent with w/c) Assessment/Plan Assessment and Plan Assess & Plan/Chief Complaint Assessment: 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 Agitation prior telesitter at [facility] but only becomes agitated in eveningtime here GERD Left leg pain HIV Elevated LFT's-improved Plan: Monitor closely OAC Aggressive therapy 07/04/2022: Monitor LFT's 07/05/2022: Impulsive 07/06/2022: Agitation treatment required 07/07/2022: Monitor closely 07/08/2022: Alter anti-psychotics 07/09/2022: Continue antipsychotics 07/10/2022: Monitor closely 07/11/2022: Monitor closely 07/12/2022: Monitor pain 07/13/2022: Improved status 07/14/2022: Ambulating now 07/15/2022: Monitor emotional status 07/16/2022: Await dispo 07/17/2022: Awaiting dispo 07/18/2022: Limit Nyquil to 30ml at night only 07/19/2022: Needs dispo 07/20/2022: DC? 07/21/2022: DC tomorrow (1) CVA (cerebral vascular accident) BREANA PATTON DO July 21, 2022 05:14
[2022-07-21] MEDS: ASPIRIN 81 MG CHEW (CHILDREN'S ASA) PO SCH (07:51)
[2022-07-21] MEDS: APIXABAN 5 MG (ELIQUIS) TABLET PO SCH ×2 (07:51→20:22)
[2022-07-21] MEDS: FLUoxetine HCL 10 MG (PROzac) CAPSULE/TABLET PO SCH (07:51)
[2022-07-21] MEDS: ALPRAZolam 0.25 MG (XANAX) TAB PO PRN ×2 (07:52→16:05)
[2022-07-21] MEDS: PANTOPRAZOLE 40 MG (PROTONIX) TAB PO SCH (07:52)
[2022-07-21] MEDS: OLANZapine 2.5 MG (ZyPREXA) TAB PO SCH ×2 (07:52→20:22)
[2022-07-21] MEDS: DICLOFENAC 1% GEL 100 GM (VOLTAREN) TUBE TOP SCH ×4 (07:53→19:29)
[2022-07-21] MEDS: DOCUSATE SODIUM 100 MG (COLACE) CAP PO SCH ×2 (07:53→19:27)
[2022-07-21] MEDS: polyethylene glycoL POWDER 17 GM (MIRALAX) PACK PO SCH ×2 (07:53→19:27)
[2022-07-21] MEDS: SENNA W/DOCUSATE (SENOKOT S) TABLET PO SCH ×2 (07:53→19:28)
[2022-07-21 08:03] VITALS: BP 149/87
--- NOTE | 2022-07-21 09:23 | Occupational Ther Daily Note ---
OT Current Status-Daily Note Subjective Pt alert, working with PT. PT/OT co-treat ([id number]), skills of 2 clinicians required for higher level balance tasks to decrease fall risk, increase safety, increase overall strength while completing tasks without AD. PT focusing on body positioning and stabilization while completing dynamic standing activities without AD while OT focusing on B UE placement and stabilization during dynamic standing activities without AD. Pt is appearing reserved and discussed that family/SO wants him to go to drug rehab now. Mental Status/Objective Patient Orientation: Person, Place, Time, Situation ADL-Treatment Therapy Code Descriptions/Definitions Functional [place] Measure: 0=Not Assessed/NA 4=Minimal Assistance 1=Total Assistance 5=Supervision or Setup 2=Maximal Assistance 6=Modified [place] 3=Moderate Assistance 7=Complete IndependenceSCALE: Activities may be completed with or without assistive devices. 4-Uuwgnnmvrg-ccqhigu completes the activity by him/herself with no assistance from a helper. 5-Set-up or Clean-up Assistance-helper sets up or cleans up; patient completes activity. [place] assists only prior to or following the activity. 4-Supervision or Touching Assistance-helper provides verbal cues and/or touching/steadying and/or contact guard assistance as patient completes activity. Assistance may be provided throughout the activity or intermittently. 3-Partial/Moderate Assistance-helper does LESS THAN HALF the effort. [place] lifts, holds or supports trunk or limbs, but provides less than half the effort. 2-Substantial/Maximal Assistance-helper does MORE THAN HALF the effort. [place] lifts or holds trunk or limbs and provides more than half the effort. 0-Plumjowed-dysnmr does ALL the effort. Patient does none of the effort to complete the activity. Or, the assistance of 2 or more helpers is required for the patient to complete the activity. If activity was not attempted, code reason: 7-Patient Refused. 9-Not Applicable-not attempted and the patient did not perform the activity before the current illness, exacerbation or injury. 10-Not Attempted due to Environmental Limitations-(lack of equipment, weather restraints, etc.). 88-Not Attempted due to Medical Conditions or Safety Concerns. Other Treatment Using B NIGHT TIME NANNY from PT/OT, pt completed single leg stance while placing other leg in designated areas, alternating LE's. Pt then completed dynamic standing activity balancing self with assist from PT while completing B UE movements, see PT notes for balance progress. Pt c/o of chills, sore throat, heavy chest and congestion. Nrsg aware and had given meds for congestions. Pt stopped therapy due to feeling sick and chills, nrsg aware and brought Motrin. Will attempt at later time to engage pt in further therapy. After session, pt lying in bed with call light/phone in reach. Nrsg in room. All needs met in room. OT Short Term Goals Short Term Goals Time Frame: July 15, 2022 Upper body dressin Lower body dressin Putting on/taking off footwear: 5 OT Hotel Dining Room Cashier Goals [facility] Goals Time Frame: July 24, 2022 Acute change in mental status: 0 Inattention: 0 Disorganized thinkin Altered level of consciousness: 0 Eating (QC): 6 (met) Oral Hygiene (QC): 6 (met) Toileting Hygiene (QC): 6 (met) Shower/Bathe Self (QC): 6 (met) Upper Body Dressing (QC): 6 (met) Lower Body Dressing (QC): 6 (met) On/Off Footwear (QC): 6 (met) Additional Goals: 1-Demonstrate ADL Tasks, 2-Verbalize Understanding, 3- ImproveStrength/[place] 1=Demonstrate adherence to instructed precautions during ADL tasks. 2=Patient will verbalize/demonstrate understanding of assistive devices/modifications for ADL. 3=Patient will improve strength/tolerance for activity to enable patient to perform ADL's. OT Education/Plan Problem List/Assessment Assessment: Decreased Activ Tolerance, Impaired Funct Balance Discharge Recommendations Plan/Recommendations: Continue POC Treatment Plan/Plan of Care Patient would benefit from OT for education, treatment and training to promote independence in ADL's, mobility, safety and/or upper extremity function for ADL's. Plan of Care: ADL Retraining, Functional Mobility, Group Exercise/Act as Ind, UE Funct Exercise/Act, UE Neuromus Re-Ed/Coord Treatment Duration: July 24, 2022 Frequency: At least 5 of 7 days/Wk (IRF) Estimated Hrs Per Day: 1.5 hours per day Agreement: Yes Rehab Potential: Fair Time Start Time: 08:30 Stop Time: 09:00 DATE: July 21, 2022 Total Time Billed (hr/min): 30 Billed Treatment Time 1 visit-FA 2 (30 min) co-treat with PT [id number] EDWIN HAUSER July 21, 2022 09:23
--- NOTE | 2022-07-21 09:24 | Physical Therapy Daily Note ---
PT Daily Note-Current Subjective Patient reports that his family wants him to go to a drug rehab. Patient states he is o.k. with an outpatient drug program, but not an inpatient program. Agreeable to work with PT. Does state he has a scratchy throat and that his sinuses are draining. Pain Section J - Health Conditions 1. Rarely or not at all 2. Occasionally 3. Frequently 4. Almost constantly 8. Unable to answer Pain Effect on Sleep: 1 Pain Interference with Therapy: 1 Pain Interference w/Day-to-Day: 1 Appearance Sleeping when therapist entered room, but roused easily. Patient able to change shirt (I) and sachin socks, shoes, including (L) AFO (I) in sitting. Demonstrated good sitting balance and core strength while performing these activities. Mental Status Patient Orientation: Person, Place, Time, Situation, Normal For Age Transfers SCALE: Activities may be completed with or without assistive devices. 1-Ojlfxdwtmd-xpudazl completes the activity by him/herself with no assistance from a helper. 5-Set-up or Clean-up Assistance-helper sets up or cleans up; patient completes activity. [place] assists only prior to or following the activity. 4-Supervision or Touching Assistance-helper provides verbal cues and/or touching/steadying and/or contact guard assistance as patient completes activity. Assistance may be provided throughout the activity or intermittently. 3-Partial/Moderate Assistance-helper does LESS THAN HALF the effort. [place] lifts, holds or supports trunk or limbs, but provides less than half the effort. 2-Substantial/Maximal Assistance-helper does MORE THAN HALF the effort. [place] lifts or holds trunk or limbs and provides more than half the effort. 8-Uhvivxzvf-vnuqua does ALL the effort. Patient does none of the effort to complete the activity. Or, the assistance of 2 or more helpers is required for the patient to complete the activity. If activity was not attempted, code reason: 7-Patient Refused. 9-Not Applicable-not attempted and the patient did not perform the activity before the current illness, exacerbation or injury. 10-Not Attempted due to Environmental Limitations-(lack of equipment, weather restraints, etc.). 88-Not Attempted due to Medical Conditions or Safety Concerns. Roll Left & Right (QC): 6 Sit to Lying (QC): 6 Lying to Sitting/Side of Bed(Q: 6 Sit to Stand (QC): 6 Chair/Fpb-ct-Jhqyn Xfer(QC): 6 Able to stand to urinate in toilet x 2 during therapy, (I) with FWW and grab bar in bathroom. Weight Bearing Full Weight Bearing Weight Bearing/Tolerated Foot drop (L) - AFO for upright activity Gait Training Does the Patient Walk?: Yes Distance: 400' Walk 150 ft (QC): 6 (with FWW without rest break) Gait Assistive Device: FWW Hemiplegic gait due to (L) foot drop, however (L) AFO greatly improves safety with gait. (I) with FWW, no LOB's. Did c/o fatigue toward end of walk, and able to state when he needed to sit and rest -- good insight into ability. Wheelchair Training Wheel 50 ft with 2 turns (QC): 6 (I) with W/C mobility including able to lock/unlock w/c brakes appropriately before/after transfers. Exercises Standing balance ex at stairs: -step taps to colored batista bags with randomly called out laterality and color, (B) UE support on stair rails x 20. Min (A) x 1 episode of (L) knee buckling slightly, patient able to self-correct, when patient became fatigued. -step taps to colored batista bags with randomly called out laterality and color, (R) UE support only on stair rail x 20. SEATED rest break. -step taps to colored batista bags with randomly called out laterality and color, (B) UE support on therapists hands (co-treat with OT for safety) x 20 reps - 2 episodes of (L) knee buckling slightly. Co-treatment continued with BROOKS to perform functional tasks that required the skill of two licensed clinicians which could not be completed with an aide. PT focused on upright balance and LE/trunk endurance without UE support, while BROOKS worked on UE strength/coordination for ball toss/catch - patient required wide TAMERA with (L) LE forward compared to (R) and (R) LE ER for greater support in standing. 20 tosses catches with CGA-min (A) for balance. "Bunting" on ball with PVC pipe x 15 reps with patient requiring same stance as above for stability and CGA-min (A) for upright balalnce. Treatments Following functional activities with OT/PT, patient stated he felt achy, was chilled and that his throat was sore. Recommended patient increase fluid intake. He requested to return to his room due to not feeling well. Temperature taken by TODD delgado. Nursing aware of patient's complaints and brought patient Motrin for his symptoms. Assessment Patient has progressed nicely with upright mobility/gait. Is (I) with bed mobility and basic transfers, including floor transfers performed last week. Patient is (I) with gait with FWW as long as (L) AFO is utilized. Patient has a FWW to return home with. Patient is (I) at w/c level for mobility and has a w/c for home which was delivered last week. Required CGA-min (A) today with more challenging upright balance tasks. Would benefit from continued HH PT or outpatient PT services depending on transportation available at D/C. Patient has met and/or exceeded all LTG's on original POC and is appropriate for D/C from [facility]U once D/C placement is arranged. PT Assisted Goals Tripe Cooker Goals PT Assisted Goals Time Frame: July 20, 2022 Roll Left & Right (QC): 6 Sit to Lying (QC): 6 Lying-Sitting on Side/Bed(QC): 6 Sit to Stand (QC): 5 Chair/Tds-kc-Jsyuc Xfer(QC): 5 (with FWW) Toilet Transfer (QC): 5 (with grab bar or FWW) Car Transfer (QC): 5 (with FWW) Does the Patient Walk: Yes Walk 10 feet (QC): 4 (CGA with FWW and (L) AFO) Walk 50ft with 2 Turns (QC): 4 (CGA with FWW and (L) AFO) Walk 150 ft (QC): 4 (CGA with FWW and AFO) Walking 10ft on Uneven Surface: 4 (CGA with FWW and (L) AFO) 1 Step (curb) (QC): 4 (with FWW) 4 Steps (QC): 3 (min (A) with rails) 12 Steps (QC): 9 Picking up an Object (QC): 5 (with FWW and magnetic tester) Does the Pt use WC or Scooter?: Yes Wheel 50 feet with 2 turns (QC: 6 Type: Manual Wheel 150 feet: 6 Type: Manual PT Plan Treatment/Plan Treatment Plan: Modify Plan, see comments (Continue POC only until D/C placement is arranged) Treatment Plan: Bed Mobility, Education, Functional Activity [place], Functional Strength, Group Therapy, Gait, Safety, Therapeutic Exercise, Transfers Treatment Duration: July 20, 2022 Frequency: At least 5 of 7 days/Wk (IRF) Estimated Hrs Per Day: 1.5 hours per day Patient and/or Family Agrees t: Yes Discharge Recommendations Equpiment Recommendations-D/C: Front Wheeled Walker, Manual Wheelchair, Other, Please Explain (AFO (L)) Time Time In: 800 Time Out: 900 DATE: July 21, 2022 Total Billed Treatment Time: 60 Total Billed Treatment 30' individual minutes -- GT, FA (8:00-8:30) 30' co-treatment -- EX, FA (8:30-9:00) Serena Yao PT July 21, 2022 09:24
[2022-07-21] MEDS: ACETAMINOPHEN 325 MG TABLET PO PRN ×2 (11:59→20:22)
[2022-07-21] MEDS: LIDOCAINE 4% (SALONPAS) PATCH TP PRN (14:05)
--- NOTE | 2022-07-21 14:13 | Occupational Ther Daily Note ---
OT Current Status-Daily Note Subjective Pt alert, sitting EOB. Pt agrees to therapy. No c/o pain at this time. Pt appears to be feeling better this pm. Co-treat with PT ([id number]), skills of 2 clinicians required to decrease fall risk and increase skill for higher level balance challenges. PT focusing on body and FWW placement with completing steps/ramps in real world situation while OT focusing on B UE placement and stabilization while completing theses tasks. Mental Status/Objective Patient Orientation: Person, Place, Time, Situation ADL-Treatment Pt completed shower, dressing, toileting independent at w/c level. Pt has demonstrated ability to complete toileting using FWW independently. Therapy Code Descriptions/Definitions Functional [place] Measure: 0=Not Assessed/NA 4=Minimal Assistance 1=Total Assistance 5=Supervision or Setup 2=Maximal Assistance 6=Modified [place] 3=Moderate Assistance 7=Complete IndependenceSCALE: Activities may be completed with or without assistive devices. 0-Lcrpahgbdf-mlokuwy completes the activity by him/herself with no assistance from a helper. 5-Set-up or Clean-up Assistance-helper sets up or cleans up; patient completes activity. [place] assists only prior to or following the activity. 4-Supervision or Touching Assistance-helper provides verbal cues and/or touching/steadying and/or contact guard assistance as patient completes activity. Assistance may be provided throughout the activity or intermittently. 3-Partial/Moderate Assistance-helper does LESS THAN HALF the effort. [place] lifts, holds or supports trunk or limbs, but provides less than half the effort. 2-Substantial/Maximal Assistance-helper does MORE THAN HALF the effort. [place] lifts or holds trunk or limbs and provides more than half the effort. 9-Kevehpcbv-rxbrcj does ALL the effort. Patient does none of the effort to complete the activity. Or, the assistance of 2 or more helpers is required for the patient to complete the activity. If activity was not attempted, code reason: 7-Patient Refused. 9-Not Applicable-not attempted and the patient did not perform the activity before the current illness, exacerbation or injury. 10-Not Attempted due to Environmental Limitations-(lack of equipment, weather restraints, etc.). 88-Not Attempted due to Medical Conditions or Safety Concerns. Eating (QC): 6 Shower/Bathe Self (QC): 6 Upper Body Dressing (QC): 6 Lower Body Dressing (QC): 6 On/Off Footwear: 6 Toileting Hygiene (QC): 6 Toilet Transfer (QC): 6 Other Treatment Pt ambulated using FWW around 2nd and 1st floor of hospital, w/c available if pt fatigues. Pt able to order and retrieve item from snack machine using FWW. Pt demonstrated use of FWW with ambulating up/down stairs and ramp. See PT notes for pt's progress. After session, pt sitting in w/c talking to SW and nrsg qc manager. All needs met. OT Short Term Goals Short Term Goals Time Frame: July 15, 2022 Upper body dressin Lower body dressin Putting on/taking off footwear: 5 OT Quartz Cutter Goals Residential Goals Time Frame: July 24, 2022 Acute change in mental status: 0 Inattention: 0 Disorganized thinkin Altered level of consciousness: 0 Eating (QC): 6 (met) Oral Hygiene (QC): 6 (met) Toileting Hygiene (QC): 6 (met) Shower/Bathe Self (QC): 6 (met) Upper Body Dressing (QC): 6 (met) Lower Body Dressing (QC): 6 (met) On/Off Footwear (QC): 6 (met) Additional Goals: 1-Demonstrate ADL Tasks, 2-Verbalize Understanding, 3- ImproveStrength/[place] 1=Demonstrate adherence to instructed precautions during ADL tasks. 2=Patient will verbalize/demonstrate understanding of assistive devices/modifications for ADL. 3=Patient will improve strength/tolerance for activity to enable patient to perform ADL's. OT Education/Plan Problem List/Assessment Assessment: Impaired Funct Balance Discharge Recommendations Plan/Recommendations: Continue POC Treatment Plan/Plan of Care Patient would benefit from OT for education, treatment and training to promote independence in ADL's, mobility, safety and/or upper extremity function for ADL's. Plan of Care: ADL Retraining, Functional Mobility, Group Exercise/Act as Ind, UE Funct Exercise/Act, UE Neuromus Re-Ed/Coord Treatment Duration: July 24, 2022 Frequency: At least 5 of 7 days/Wk (IRF) Estimated Hrs Per Day: 1.5 hours per day Agreement: Yes Rehab Potential: Fair Time Start Time: 12:20 Stop Time: 13:40 DATE: July 21, 2022 Total Time Billed (hr/min): 80 Billed Treatment Time 1 visit-ADL 4 (60 min) FA 1 (20 min) co-treat with PT [id number], individual [id number] EDWIN HAUSER July 21, 2022 14:13
--- NOTE | 2022-07-21 14:34 | Physical Therapy Daily Note ---
PT Daily Note-Current Subjective No new complaints. Pain Section J - Health Conditions 1. Rarely or not at all 2. Occasionally 3. Frequently 4. Almost constantly 8. Unable to answer Pain Effect on Sleep: 1 Pain Interference with Therapy: 1 Pain Interference w/Day-to-Day: 1 Mental Status Patient Orientation: Person, Place, Time, Situation Transfers SCALE: Activities may be completed with or without assistive devices. 0-Gtsdzzxewu-ljmqauj completes the activity by him/herself with no assistance from a helper. 5-Set-up or Clean-up Assistance-helper sets up or cleans up; patient completes activity. [place] assists only prior to or following the activity. 4-Supervision or Touching Assistance-helper provides verbal cues and/or touching/steadying and/or contact guard assistance as patient completes activity. Assistance may be provided throughout the activity or intermittently. 3-Partial/Moderate Assistance-helper does LESS THAN HALF the effort. [place] lifts, holds or supports trunk or limbs, but provides less than half the effort. 2-Substantial/Maximal Assistance-helper does MORE THAN HALF the effort. [place] lifts or holds trunk or limbs and provides more than half the effort. 1-Jbbrlrggb-vwchzh does ALL the effort. Patient does none of the effort to complete the activity. Or, the assistance of 2 or more helpers is required for the patient to complete the activity. If activity was not attempted, code reason: 7-Patient Refused. 9-Not Applicable-not attempted and the patient did not perform the activity before the current illness, exacerbation or injury. 10-Not Attempted due to Environmental Limitations-(lack of equipment, weather restraints, etc.). 88-Not Attempted due to Medical Conditions or Safety Concerns. Roll Left & Right (QC): 6 Sit to Lying (QC): 6 Lying to Sitting/Side of Bed(Q: 6 Sit to Stand (QC): 6 Chair/Pvp-yx-Jlyns Xfer(QC): 6 (/c FWW) Weight Bearing Full Weight Bearing Weight Bearing/Tolerated Foot drop (L) - AFO for upright activity Gait Training Does the Patient Walk?: Yes Distance: 400' x 2 Walk 150 ft (QC): 6 Walking 10ft/uneven surface-QC: 6 (up/ down 20' ramp with FWW with excellent strides and no LOB) Gait Assistive Device: Cane Large Base Quad Wheelchair Training Does the Pt Use a Wheelchair?: Yes Wheel 50 ft with 2 turns (QC): 6 Wheel 150 ft (QC): 6 Type of Wheelchair: Manual up/down ramp: initially required cues and mod (A) to not hit wall as he became impulsive and lifted arms and legs ("having fun"). After cues, able to control descent and ascend ramp going forward with UE's only. Stair Training #of Steps: 3 1 Step (curb) (QC): 5 (with FWW) 4 Steps (QC): 4 (with 1 rail and FWW /p instruction by PT on correct technique of using walker as 1 rail.) Treatments Standing balance focus for task at vending area with prn cues for walker/use safety in distracrable environment - cafeteria. Co-treat with BROOKS for vending task/cooking task with PT focusing on upright balance in distractable environment and BROOKS focusing on UE use/safety with snack management and microwave use. Assessment Excellent progress with upright mobility and gait endurance. PT Porcelain Enamel Laborer Goals Half-Way Goals PT Porcelain Enamel Laborer Goals Time Frame: July 20, 2022 Roll Left & Right (QC): 6 Sit to Lying (QC): 6 Lying-Sitting on Side/Bed(QC): 6 Sit to Stand (QC): 5 Chair/Zbb-xn-Xtmje Xfer(QC): 5 (with FWW) Toilet Transfer (QC): 5 (with grab bar or FWW) Car Transfer (QC): 5 (with FWW) Does the Patient Walk: Yes Walk 10 feet (QC): 4 (CGA with FWW and (L) AFO) Walk 50ft with 2 Turns (QC): 4 (CGA with FWW and (L) AFO) Walk 150 ft (QC): 4 (CGA with FWW and AFO) Walking 10ft on Uneven Surface: 4 (CGA with FWW and (L) AFO) 1 Step (curb) (QC): 4 (with FWW) 4 Steps (QC): 3 (min (A) with rails) 12 Steps (QC): 9 Picking up an Object (QC): 5 (with FWW and tractor trailer operator) Does the Pt use WC or Scooter?: Yes Wheel 50 feet with 2 turns (QC: 6 Type: Manual Wheel 150 feet: 6 Type: Manual PT Plan Treatment/Plan Treatment Plan: Modify Plan, see comments (continue PT until D/C placement obtained) Treatment Plan: Bed Mobility, Education, Functional Activity [place], Functional Strength, Group Therapy, Gait, Safety, Therapeutic Exercise, Transfers Treatment Duration: July 20, 2022 Frequency: At least 5 of 7 days/Wk (IRF) Estimated Hrs Per Day: 1.5 hours per day Patient and/or Family Agrees t: Yes Time Time In: 1300 Time Out: 1340 DATE: July 21, 2022 Total Billed Treatment Time: 40 Total Billed Treatment 40 - w/c, 2 gt -- co-treatment with BROOKS for need of 2 licensed therapists (which aide could not provide) to ensure safety with higher level upright mobility tasks. Serena Yao PT July 21, 2022 14:34
[2022-07-21] MEDS: TEMAZEPAM 15 MG (RESTORIL) CAP PO SCH (20:22)
[2022-07-21] MEDS: MELATONIN 3 MG TABLET PO PRN (20:22)
[2022-07-21] MEDS: DIPHENHYDRAMINE 25 MG PO PRN (20:22)
[2022-07-21 20:28] VITALS: BP 140/89
[2022-07-22] MEDS: guaiFENesin/CODEINE (ROBITUSSIN AC) 10ML UDC PO PRN (00:07)
[2022-07-22] MEDS: IBUPROFEN TABLET 200 MG TAB PO PRN (01:50)
[2022-07-22] MEDS ORDERED: TEMA15CA PO (05:36)
[2022-07-22] MEDS ORDERED: PANT40TA52 PO (05:36)
[2022-07-22] MEDS ORDERED: OLAN2.5T27 PO (05:36)
[2022-07-22] MEDS ORDERED: APIX5TAB PO (05:36)
[2022-07-22] MEDS ORDERED: FLUO10CA33 PO (05:36)
[2022-07-22] MEDS ORDERED: DICL100G13 TOP (05:36)
[2022-07-22] MEDS ORDERED: ASPI81TA64 PO (05:36)
--- NOTE | 2022-07-22 05:38 | Discharge Summary ---
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 Agitation prior telesitter at [place] but only becomes agitated in eveningtime here GERD Left leg pain HIV Elevated LFT's-improved Plan: Monitor closely OAC Aggressive therapy 07/04/2022: Monitor LFT's 07/05/2022: Impulsive 07/06/2022: Agitation treatment required 07/07/2022: Monitor closely 07/08/2022: Alter anti-psychotics 07/09/2022: Continue antipsychotics 07/10/2022: Monitor closely 07/11/2022: Monitor closely 07/12/2022: Monitor pain 07/13/2022: Improved status 07/14/2022: Ambulating now 07/15/2022: Monitor emotional status 07/16/2022: Await dispo 07/17/2022: Awaiting dispo 07/18/2022: Limit Nyquil to 30ml at night only 07/19/2022: Needs dispo 07/20/2022: DC? 07/21/2022: DC tomorrow (1) CVA (cerebral vascular accident) Discharge Summary Discharge Physical Examination Allergies: Coded Allergies: No Known Allergies (Verified Allergy, Unknown, 07/06/22) Vitals & I&Os Vital Signs Date Time Temp Pulse Resp B/P (MAP) Pulse Ox O2 Delivery O2 Flow Rate FiO2 07/22/22 09:31 35.9 106 16 129/71 96 Room Air General Appearance: Alert, Oriented X3, Cooperative Respiratory: Clear to Auscultation Cardiovascular: Regular Rate Psych/Mental Status: Mental Status NL Hospital Course Was the Problem List Reviewed?: Yes Hospital course: Patient had an uneventful hospital course after he was moved over from [facility] after sustaining a stroke. It was embolic type. He had very labile emotional status during his entire hospital course. His labs remained stable but elevated liver enzymes required close monitoring. Prior alcoholism in illicit drug abuse required close monitoring and he did consume a bottle of NyQuil during his stay within a 2-hour period. No significant concerns with his progress and he was able to safely ambulate with a walker although he remained impulsive. Patient's vitals remained stable and he was maintained on anticoagulation through the entire hospital course and was able to regain enough function to be discharged home with his significant other and will be closely monitored by primary care provider. Statin not prescribed at DC due to significant elevation in liver enzymes risks outweighed medical benefits. Labs (last 24 hrs) Laboratory Tests 07/04/22 05:34: White Blood Count 7.4, Red Blood Count 3.83L, Hemoglobin 12.0L, Hematocrit 36L, Mean Corpuscular Volume 95, Mean Corpuscular Hemoglobin 31, Mean Corpuscular Hemoglobin Concent 33, Red Cell Distribution Width 13.2, Platelet Count 275, Mean Platelet Volume 11.0, Immature Granulocyte % (Auto) 2, Neutrophils (%) (Auto) 62, Lymphocytes (%) (Auto) 24, Monocytes (%) (Auto) 8, Eosinophils (%) (Auto) 2, Basophils (%) (Auto) 1, Neutrophils # (Auto) 4.6, Lymphocytes # (Auto) 1.8, Monocytes # (Auto) 0.6, Eosinophils # (Auto) 0.2, Basophils # (Auto) 0.1, Immature Granulocyte # (Auto) 0.2H, Sodium Level 140, Potassium Level 4.6, Chloride Level 106, Carbon Dioxide Level 23, Anion Gap 11, Blood Urea Nitrogen 23H, Creatinine 0.92, Estimat Glomerular Filtration Rate 107, BUN/Creatinine Ratio 25, Glucose Level 105, Calcium Level 9.1, Corrected Calcium 9.4, Total Bilirubin 0.2, Gamma Glutamyl Transpeptidase 56, Aspartate Amino Transf (AST/SGOT) 102H, Alanine Aminotransferase (ALT/SGPT) 211H, Alkaline Phosphatase 75, Total Protein 6.8, Albumin 3.6, Hepatitis A IgM Antibody Non-Reactive, Hepatitis B Surface Antigen Non-Reactive, Hepatitis B Core IgM Antibody Non- Reactive, Hepatitis C Antibody Non-Reactive 07/06/22 07:03: White Blood Count 8.5, Red Blood Count 3.92L, Hemoglobin 12.3L, Hematocrit 37L, Mean Corpuscular Volume 95, Mean Corpuscular Hemoglobin 31, Mean Corpuscular Hemoglobin Concent 33, Red Cell Distribution Width 13.4, Platelet Count 227, Mean Platelet Volume 11.2, Immature Granulocyte % (Auto) 2, Neutrophils (%) (Auto) 63, Lymphocytes (%) (Auto) 25, Monocytes (%) (Auto) 7, Eosinophils (%) (Auto) 2, Basophils (%) (Auto) 1, Neutrophils # (Auto) 5.4, Lymphocytes # (Auto) 2.1, Monocytes # (Auto) 0.6, Eosinophils # (Auto) 0.2, Basophils # (Auto) 0.1, Immature Granulocyte # (Auto) 0.1, Sodium Level 135, Potassium Level 4.3, Chloride Level 105, Carbon Dioxide Level 21, Anion Gap 9, Blood Urea Nitrogen 19H, Creatinine 1.11, Estimat Glomerular Filtration Rate 85, BUN/Creatinine Ratio 17, Glucose Level 144H, Calcium Level 8.9, Corrected Calcium 9.1, Total Bilirubin 0.3, Aspartate Amino Transf (AST/SGOT) 76H, Alanine Aminotransferase (ALT/SGPT) 193H, Alkaline Phosphatase 85, Total Protein 7.5, Albumin 3.8 07/13/22 04:53: White Blood Count 5.6, Red Blood Count 3.73L, Hemoglobin 11.6L, Hematocrit 36L, Mean Corpuscular Volume 97, Mean Corpuscular Hemoglobin 31, Mean Corpuscular Hemoglobin Concent 32, Red Cell Distribution Width 14.3, Platelet Count 150, Mean Platelet Volume 11.4, Immature Granulocyte % (Auto) 2, Neutrophils (%) (Auto) 58, Lymphocytes (%) (Auto) 27, Monocytes (%) (Auto) 8, Eosinophils (%) (Auto) 4, Basophils (%) (Auto) 1, Neutrophils # (Auto) 3.2, Lymphocytes # (Auto) 1.5, Monocytes # (Auto) 0.5, Eosinophils # (Auto) 0.2, Basophils # (Auto) 0.1, Immature Granulocyte # (Auto) 0.1, Sodium Level 140, Potassium Level 4.3, Ch loride Level 106, Carbon Dioxide Level 24, Anion Gap 10, Blood Urea Nitrogen 17, Creatinine 1.02, Estimat Glomerular Filtration Rate 94, BUN/Creatinine Ratio 17, Glucose Level 102, Calcium Level 9.3, Corrected Calcium 9.5, Total Bilirubin 0.3, Aspartate Amino Transf (AST/SGOT) 89H, Alanine Aminotransferase (ALT/SGPT) 212H, Alkaline Phosphatase 74, Total Protein 6.6, Albumin 3.7 Pending Labs Laboratory Tests 07/04/22 05:34: White Blood Count 7.4, Red Blood Count 3.83, Hemoglobin 12.0, Hematocrit 36, Mean Corpuscular Volume 95, Mean Corpuscular Hemoglobin 31, Mean Corpuscular Hemoglobin Concent 33, Red Cell Distribution Width 13.2, Platelet Count 275, Mean Platelet Volume 11.0, Immature Granulocyte % (Auto) 2, Neutrophils (%) (Auto) 62, Lymphocytes (%) (Auto) 24, Monocytes (%) (Auto) 8, Eosinophils (%) (Auto) 2, Basophils (%) (Auto) 1, Neutrophils # (Auto) 4.6, Lymphocytes # (Auto) 1.8, Monocytes # (Auto) 0.6, Eosinophils # (Auto) 0.2, Basophils # (Auto) 0.1, Immature Granulocyte # (Auto) 0.2, Sodium Level 140, Potassium Level 4.6, Chloride Level 106, Carbon Dioxide Level 23, Anion Gap 11, Blood Urea Nitrogen 23, Creatinine 0.92, Estimat Glomerular Filtration Rate 107, BUN/Creatinine Ratio 25, Glucose Level 105, Calcium Level 9.1, Corrected Calcium 9.4, Total Bilirubin 0.2, Gamma Glutamyl Transpeptidase 56, Aspartate Amino Transf (AST/SGOT) 102, Alanine Aminotransferase (ALT/SGPT) 211, Alkaline Phosphatase 75, Total Protein 6.8, Albumin 3.6, Hepatitis A IgM Antibody Non-Reactive, Hepatitis B Surface Antigen Non-Reactive, Hepatitis B Core IgM Antibody Non-R eactive, Hepatitis C Antibody Non-Reactive 07/06/22 07:03: White Blood Count 8.5, Red Blood Count 3.92, Hemoglobin 12.3, Hematocrit 37, Mean Corpuscular Volume 95, Mean Corpuscular Hemoglobin 31, Mean Corpuscular Hemoglobin Concent 33, Red Cell Distribution Width 13.4, Platelet Count 227, Mean Platelet Volume 11.2, Immature Granulocyte % (Auto) 2, Neutrophils (%) (Auto) 63, Lymphocytes (%) (Auto) 25, Monocytes (%) (Auto) 7, Eosinophils (%) (Auto) 2, Basophils (%) (Auto) 1, Neutrophils # (Auto) 5.4, Lymphocytes # (Auto) 2.1, Monocytes # (Auto) 0.6, Eosinophils # (Auto) 0.2, Basophils # (Auto) 0.1, Immature Granulocyte # (Auto) 0.1, Sodium Level 135, Potassium Level 4.3, Chloride Level 105, Carbon Dioxide Level 21, Anion Gap 9, Blood Urea Nitrogen 19, Creatinine 1.11, Estimat Glomerular Filtration Rate 85, BUN/Creatinine Ratio 17, Glucose Level 144, Calcium Level 8.9, Corrected Calcium 9.1, Total Bilirubin 0.3, Aspartate Amino Transf (AST/SGOT) 76, Alanine Aminotransferase (ALT/SGPT) 193, Alkaline Phosphatase 85, Total Protein 7.5, Albumin 3.8 07/13/22 04:53: White Blood Count 5.6, Red Blood Count 3.73, Hemoglobin 11.6, Hematocrit 36, Mean Corpuscular Volume 97, Mean Corpuscular Hemoglobin 31, Mean Corpuscular Hemoglobin Concent 32, Red Cell Distribution Width 14.3, Platelet Count 150, Mean Platelet Volume 11.4, Immature Granulocyte % (Auto) 2, Neutrophils (%) (Auto) 58, Lymphocytes (%) (Auto) 27, Monocytes (%) (Auto) 8, Eosinophils (%) (Auto) 4, Basophils (%) (Auto) 1, Neutrophils # (Auto) 3.2, Lymphocytes # (Auto) 1.5, Monocytes # (Auto) 0.5, Eosinophils # (Auto) 0.2, Basophils # (Auto) 0.1, Immature Granulocyte # (Auto) 0.1, Sodium Level 140, Potassium Level 4.3, Chloride Level 106, Carbon Dioxide Level 24, Anion Gap 10, Blood Urea Nitrogen 17, Creatinine 1.02, Estimat Glomerular Filtration Rate 94, BUN/Creatinine Ratio 17, Glucose Level 102, Calcium Level 9.3, Corrected Calcium 9.5, Total Bilirubin 0.3, Aspartate Amino Transf (AST/SGOT) 89, Alanine Aminotransferase (ALT/SGPT) 212, Alkaline Phosphatase 74, Total Protein 6.6, Albumin 3.7 Discharge Home Medications: Active Scripts Active Pantoprazole Sodium 40 Mg Tablet.dr 40 Mg PO DAILY Temazepam 15 Mg Capsule 30 Mg PO HS Olanzapine 2.5 Mg Tablet 5 Mg PO BID Fluoxetine HCl 10 Mg Capsule 10 Mg PO DAILY Diclofenac Sodium 1 % Gel..gram. 0 Gm TOP QID four times daily Children's Aspirin (Aspirin) 81 Mg Tab.chew 81 Mg PO DAILY Eliquis (Apixaban) 5 Mg Tablet 5 Mg PO BID Reported Zzzquil (Diphenhydramine HCl) 25 Mg Capsule 50 Mg PO HS PRN Cabenuva 600 mg-900 mg ER Susp (Cabotegravir/Rilpivirine) 600 Mg/3 Ml-900 Mg/3 Ml Suser.vial 1 Ea IM EVERY 60 DAYS Instructions to patient/family Please see electronic discharge instructions given to patient. Diagnosis/Problems Diagnosis/Problems (1) CVA (cerebral vascular accident) BREANA PATTON DO July 22, 2022 05:38
[2022-07-22 07:30] VITALS: BP 129/71
[2022-07-22] MEDS: polyethylene glycoL POWDER 17 GM (MIRALAX) PACK PO SCH (08:43)
[2022-07-22] MEDS: DICLOFENAC 1% GEL 100 GM (VOLTAREN) TUBE TOP SCH (08:44)
[2022-07-22] MEDS: OLANZapine 2.5 MG (ZyPREXA) TAB PO SCH (09:03)
[2022-07-22] MEDS: APIXABAN 5 MG (ELIQUIS) TABLET PO SCH (09:03)
[2022-07-22] MEDS: DOCUSATE SODIUM 100 MG (COLACE) CAP PO SCH (09:03)
[2022-07-22] MEDS: FLUoxetine HCL 10 MG (PROzac) CAPSULE/TABLET PO SCH (09:04)
[2022-07-22] MEDS: ASPIRIN 81 MG CHEW (CHILDREN'S ASA) PO SCH (09:04)
[2022-07-22] MEDS: PANTOPRAZOLE 40 MG (PROTONIX) TAB PO SCH (09:04)
[2022-07-22] MEDS: SENNA W/DOCUSATE (SENOKOT S) TABLET PO SCH (09:04)
[2022-07-22] MEDS: ALPRAZolam 0.25 MG (XANAX) TAB PO PRN (09:09)
[2022-07-22 09:31] VITALS: BP 129/71
--- NOTE | 2022-07-22 15:18 | Therapy Team Discharge Summary ---
Therapy Discharge Summary Discharge Recommendations Date of Discharge July 22, 2022 at 10:06 Physical Therapy Patient admitted to ARU 07/03/21 following ischemic stroke. Patient made excellent progress with functional mobility and was (I) with bed mobility, sit<>stands, and stand pivot transfers and toilet transfers with FWW. Was able to ambulate over 400' with FWW (I). When patient becomes distracted in public environments, he requires a standing rest break for "refocus". Able to propel w/c up/down ramp (I). Able to navigate over elevator thresholds with FWW (I). Able to walk up/down 20' ramp with FWW (I). Requires SBA without cues for support for curb ambulation with FWW. Steadying assist of 1 and cues to navigate stairs with 1 rail and walker used as 2nd rail (to simulate [employer] trailer set up), and to ascend/descend 12 steps with (B) rails. Roll Left to Right (QC): 6 Sit to Lying (QC): 6 Lying to Sitting/Side of Bed(Q: 6 Sit to Stand (QC): 6 Chair/Ylv-nf-Mwrjp Xfer(QC): 6 Toilet Transfer (QC): 6 Car Transfer (QC): 6 Does the Patient Walk: Yes Mode of Locomotion: Both Anticipated Mode of Locomotion: Both Walk 10 feet (QC): 6 (with with FWW and AFO) Walk 50 ft with 2 Turns(QC): 6 (with FWW and AFO) Walk 150 ft (QC): 6 (with FWW) Walking 10ft on uneven surface: 6 Distance: up to 400' Gait Assistive Device: FWW Does the Pt Use a Wheelchair: Yes Wheelchair Distance: over 150' Wheel 50 ft with 2 turns (QC): 6 Wheel 150 ft (QC): 6 Type of Wheelchair: Manual #of Steps: 4 1 Step (curb) (QC): 5 4 Steps (QC): 4 12 Steps (QC): 4 Walking Assistive Device: Walker Balance Sitting Static: Good Balance Sitting Dynamic: Good Balance-Standing Static: Good Picking up an Object (QC): 6 (Mod I with insurance territory manager) Occupational Therapy Impaired Funct Balance Eating (QC): 6 Oral Hygiene (QC): 6 Shower/Bathe Self (QC): 6 Upper Body Dressing (QC): 6 Lower Body Dressing (QC): 6 On/Off Footwear (QC): 6 Toileting Hygiene (QC): 6 PT Coat Checker Goals Coat Checker Goals PT Coat Checker Goals Time Frame: July 20, 2022 Roll Left to Right (QC): 6 Sit to Lying (QC): 6 Lying-Sitting on Side/Bed(QC): 6 Sit to Stand (QC): 5 Chair/Jkv-jn-Powgt Xfer(QC): 5 (with FWW) Toilet/Commode Transfer (QC): 5 (with grab bar or FWW) Car Transfer (QC): 5 (with FWW) Does the Patient Walk: Yes Walk 10 feet (QC): 4 (CGA with FWW and (L) AFO) Walk 10ft-Uneven Surface(QC): 4 (CGA with FWW and (L) AFO) Walk 50ft with 2 Turns (QC): 4 (CGA with FWW and (L) AFO) Walk 150 ft (QC): 4 (CGA with FWW and AFO) Does the Pt use WC or Scooter?: Yes Wheel 50 feet with 2 turns (QC: 6 Type: Manual Wheel 150 feet: 6 Type: Manual 1 Step (curb) (QC): 4 (with FWW) 4 Steps (QC): 3 (min (A) with rails) 12 Steps (QC): 9 Picking up an Object (QC): 5 (with FWW and insurance territory manager) OT Coat Checker Goals Coat Checker Goals Time Frame: July 24, 2022 Acute change in mental status: 0 Inattention: 0 Disorganized thinkin Altered level of consciousness: 0 Eating (QC): 6 (met) Oral Hygiene (QC): 6 (met) Toileting Hygiene (QC): 6 (met) Shower/Bathe Self (QC): 6 (met) Upper Body Dressing (QC): 6 (met) Lower Body Dressing (QC): 6 (met) On/Off Footwear (QC): 6 (met) Additional Goals: 1-Demonstrate ADL Tasks, 2-Verbalize Understanding, 3- ImproveStrength/[place] 1=Demonstrate adherence to instructed precautions during ADL tasks. 2=Patient will verbalize/demonstrate understanding of assistive devices/modifications for ADL. 3=Patient will improve strength/tolerance for activity to enable patient to perform ADL's. Serena Yao PT July 22, 2022 15:18
--- NOTE | 2022-07-23 09:22 | Therapy Team Discharge Summary ---
Therapy Discharge Summary Discharge Recommendations Date of Discharge July 22, 2022 at 10:06 Physical Therapy Roll Left to Right (QC): 6 Sit to Lying (QC): 6 Lying to Sitting/Side of Bed(Q: 6 Sit to Stand (QC): 6 Chair/Ejl-jg-Dvsvm Xfer(QC): 6 Toilet Transfer (QC): 6 Car Transfer (QC): 6 Does the Patient Walk: Yes Mode of Locomotion: Both Anticipated Mode of Locomotion: Both Walk 10 feet (QC): 6 (with with FWW and AFO) Walk 50 ft with 2 Turns(QC): 6 (with FWW and AFO) Walk 150 ft (QC): 6 (with FWW) Walking 10ft on uneven surface: 6 Distance: up to 400' Gait Assistive Device: FWW Does the Pt Use a Wheelchair: Yes Wheelchair Distance: over 150' Wheel 50 ft with 2 turns (QC): 6 Wheel 150 ft (QC): 6 Type of Wheelchair: Manual #of Steps: 4 1 Step (curb) (QC): 5 4 Steps (QC): 4 12 Steps (QC): 4 Walking Assistive Device: Walker Balance Sitting Static: Good Balance Sitting Dynamic: Good Balance-Standing Static: Good Picking up an Object (QC): 6 (Mod I with education associate) Occupational Therapy Pt admitted to PAU s/p CVA. At [facility], pt was independent with ADLS and functional mobility without AD. Upon initial evaluation, pt required set up with eating, SBA oral care and UE dressing, min A footwear and total assist with showering, LE Dressing and toileting. OT tx focused on neuromuscular reeducation, increasin g safety and independence with ADLS, & increasing BUE strength and activity tolerance. Pt made good progress towards goals, attaining IND level with all LTGs. Pt discharged home with SO, d/c from OT. Impaired Funct Balance Eating (QC): 6 Oral Hygiene (QC): 6 Shower/Bathe Self (QC): 6 Upper Body Dressing (QC): 6 Lower Body Dressing (QC): 6 On/Off Footwear (QC): 6 Toileting Hygiene (QC): 6 PT Correction Goals Photovoltaic Panel Installer Goals PT Photovoltaic Panel Installer Goals Time Frame: July 20, 2022 Roll Left to Right (QC): 6 Sit to Lying (QC): 6 Lying-Sitting on Side/Bed(QC): 6 Sit to Stand (QC): 5 Chair/Ekj-qh-Xzbfu Xfer(QC): 5 (with FWW) Toilet/Commode Transfer (QC): 5 (with grab bar or FWW) Car Transfer (QC): 5 (with FWW) Does the Patient Walk: Yes Walk 10 feet (QC): 4 (CGA with FWW and (L) AFO) Walk 10ft-Uneven Surface(QC): 4 (CGA with FWW and (L) AFO) Walk 50ft with 2 Turns (QC): 4 (CGA with FWW and (L) AFO) Walk 150 ft (QC): 4 (CGA with FWW and AFO) Does the Pt use WC or Scooter?: Yes Wheel 50 feet with 2 turns (QC: 6 Type: Manual Wheel 150 feet: 6 Type: Manual 1 Step (curb) (QC): 4 (with FWW) 4 Steps (QC): 3 (min (A) with rails) 12 Steps (QC): 9 Picking up an Object (QC): 5 (with FWW and education associate) OT Correction Goals Photovoltaic Panel Installer Goals Time Frame: July 24, 2022 Acute change in mental status: 0 Inattention: 0 Disorganized thinkin Altered level of consciousness: 0 Eating (QC): 6 (met) Oral Hygiene (QC): 6 (met) Toileting Hygiene (QC): 6 (met) Shower/Bathe Self (QC): 6 (met) Upper Body Dressing (QC): 6 (met) Lower Body Dressing (QC): 6 (met) On/Off Footwear (QC): 6 (met) Additional Goals: 1-Demonstrate ADL Tasks, 2-Verbalize Understanding, 3- ImproveStrength/[place] 1=Demonstrate adherence to instructed precautions during ADL tasks. 2=Patient will verbalize/demonstrate understanding of assistive devices/modifications for ADL. 3=Patient will improve strength/tolerance for activity to enable patient to perform ADL's. CHRISTA GUERRERO OT July 23, 2022 09:22
== END 2022-07-22 10:06 | disposition home or self-care (01) | DRG 57 ==
PROVIDERS: ADMIT Internal Medicine; ATTEND Internal Medicine
DX: I69.354 Hemiplegia and hemiparesis following cerebral infarction affecting left non-dominant side (principal); R44.3 Hallucinations, unspecified; I69.320 Aphasia following cerebral infarction; I69.398 Other sequelae of cerebral infarction; R26.89 Other abnormalities of gait and mobility; R45.87 Impulsiveness; R41.0 Disorientation, unspecified; F41.9 Anxiety disorder, unspecified; F32.A Depression, unspecified; R45.1 Restlessness and agitation; M79.605 Pain in left leg; K21.9 Gastro-esophageal reflux disease without esophagitis; R74.8 Abnormal levels of other serum enzymes; Z91.81 History of falling; Z21 Asymptomatic human immunodeficiency virus [HIV] infection status; Z87.891 Personal history of nicotine dependence; Z79.01 Long term (current) use of anticoagulants; Z79.82 Long term (current) use of aspirin; Z79.899 Other long term (current) drug therapy
CPT/HCPCS: 36415; 80053; 80074; 82977; 85025